=== PATIENT | female | born 1935 | race Caucasian/White ===

== ENCOUNTER 2017-04-04 12:03 | Inpatient (IN) | payer MEDICARE, OTHER ==
[2017-04-04] MEDS ORDERED: Sodium Chloride 0.9% 1000 ML 1,000 ML IV STA (12:36)
[2017-04-04] MEDS ORDERED: Zofran 4 MG/2 ML VIAL IV ONE (12:36)
[2017-04-04] MEDS ORDERED: Sodium Chloride 0.9% 1000 ML 1,000 ML ONE (12:40)
[2017-04-04] MEDS ORDERED: Zofran 4 MG/2 ML VIAL ONE (12:40)
--- NOTE | 2017-04-04 12:43 | ERPHSYRPT ---
- History of Present Illness Time Seen by Provider: 04/04/17 12:36 Historian: patient Exam Limitations: no limitations Patient Subjective Stated Complaint: c/o vomiting/diarrhea for three days. fever of 101.6 at home. recent bronchitis with frequent cough. Triage Nursing Assessment: to room per w/c. skin pale, w/d. no edema noted. abd soft, tender. hyperactive bowel sounds throughout. occasional dry cough. wears abd binder for hernia. Physician History: This is a 81-year-old white female with history of coronary artery disease myocardial infarction high blood pressure hypercholesterolemia and anemia. Patient arrives with complaint of vomiting 3 times a day for 4 days, she states she's been having multiple loose stools she states she's had a cough she's had a fever. Patient states she was seen by her family doctor March 30 in the next day she began to have the symptoms. She states that she has a ventral hernia which is a located where she had had a feeding tube in the past. Past medical history includes atherosclerotic coronary artery disease, myocardial infarction, high blood pressure, anemia, fatty liver, pancreatitis patient apparently had a feeding tube in the past. Past surgical history includes CABG, cardiac stents, vaginal hysterectomy, bilateral total knee arthroplasty, cholecystectomy, Social history patient denies tobacco or alcohol use Timing/Duration: day(s) (4 days) Activities at Onset: none Quality: other (mild tenderness in upper abdomen with coughing at site of hernia ) Abdominal Pain Onset Location: epigastric Pain Radiation: no radiation Severity of Pain-Max: moderate (moderate with coughing) Severity of Pain-Current: none Modifying Factors: Improves With: coughing, vomiting, other (diarrhea). Worsens With: antacids, breathing, defecating, eating, exercise, lying down, movement, palpation, rest, urinating, position, walking Associated Symptoms: diarrhea, fever/chills, nausea, vomiting, No back, No chest pain, No diaphoresis, No fatigue, No headache, No heartburn, No loss of appetite, No neck pain, No rash, No shortness of breath, No syncope Previous symptoms: recently seen (seen by Dr. Kapadia March 30) Allergies/Adverse Reactions: cefaclor Allergy (Verified 04/04/17 12:43) meperidine [From Demerol] Allergy (Verified 04/04/17 12:43) Penicillins Allergy (Verified 04/04/17 12:43) sulfamethoxazole [From Bactrim] Allergy (Verified 04/04/17 12:43) Tetracyclines Allergy (Verified 04/04/17 12:43) trimethoprim [From Bactrim] Allergy (Verified 04/04/17 12:43) Home Medications: Aspirin [[place] Aspirin] 81 mg PO DAILY 04/04/17 [History] Bimatoprost 0.01% [Lumigan 0.01% 2.5 ml] 2.5 ml OP HS 04/04/17 [History] Brinzolamide/Brimonidine Tart [Simbrinza 1%-0.2% Eye Drops] 8 ml OP BID [History] Ezetimibe 10 mg [Zetia 10 MG] 10 mg PO DAILY 04/04/17 [History] Isosorbide Mononitrate [Isosorbide Mononitrate ER] 30 mg PO BID 04/04/17 [ History] Metoprolol Tartrate 50 mg [Lopressor 50 MG] 50 mg PO DAILY 04/04/17 [ History] Nitroglycerin 0.4 mg Tablet [Nitrostat 0.4 MG Tablet] 0.4 mg SL UD [History] [place]-3/Dha/Epa/Fish Oil [Fish Oil 1,000 mg Softgel] 1,000 mg PO BID 04/04/17 [ History] Prasugrel HCL 10 MG [Effient 10 MG TABLET] 10 mg PO DAILY 04/04/17 [ History] Valsartan [Diovan] 160 mg PO BID 04/04/17 [History] Hx Tetanus, Diphtheria Vaccination/Date Given: No Hx Influenza Vaccination/Date Given: No Hx Pneumococcal Vaccination/Date Given: No - Review of Systems Constitutional: Fever, No Chills, No Fatigue, No Lethargy, No Malaise, No Night Sweats, No Weakness, No Weight Loss Eyes: No Symptoms Ears, Nose, & Throat: No Symptoms Respiratory: Cough, No Cyanosis, No Dyspnea, No Dyspnea on Exertion (HANEY), No Stridor, No Wheezing Cardiac: No Chest Pain, No Edema, No Palpitations, No Syncope, No Orthopnea, No PND Abdominal/Gastrointestinal: Abdominal Pain (mild pain at site of hernia epigastric region with coughing), Nausea, Vomiting, Diarrhea, No Constipation, No Hematemesis, No Hematochezia, No Melena, No Dysphagia, No Appetite Changes Genitourinary Symptoms: No Dysuria Musculoskeletal: No Back Pain, No Neck Pain Skin: No Rash Neurological: No Dizziness, No Focal Weakness, No Sensory Changes Psychological: No Symptoms Endocrine: No Symptoms All Other Systems: Reviewed and Negative - Past Medical History ENT History: Cataracts, Glaucoma Cardiac History: Coronary Artery Disease, High Cholesterol, Hypertension, Myocardial Infarction ([place]) Musculoskeletal History: Arthritis GI Medical History: GERD, Gallbladder Disease, Hernia, Pancreatitis - Past Surgical History Past Surgical History: Yes Cardiac: CABG, Cardiac Catheterization, Cardiac Stent Gastrointestinal: Cholecystectomy Musculoskeletal: Joint Replacement Female Surgical History: Hysterectomy Other Surgical History: bilat knees - Social History Smoking Status: Never smoker Exposure to second hand smoke: No Drug Use: none Patient Lives Alone: No - Nursing Vital Signs Nursing Vital Signs: Initial Vital Signs Temperature 99.7 F 04/04/17 12:13 Pulse Rate 75 04/04/17 12:13 Respiratory Rate 18 04/04/17 12:13 Blood Pressure 118/54 04/04/17 12:13 O2 Sat by Pulse Oximetry 94 L 04/04/17 12:13 Pain Scale Pain Intensity 4 - Physical Exam General Appearance: no apparent distress, alert Eye Exam: PERRL/EOMI, eyes nml inspection Ears, Nose, Throat Exam: normal ENT inspection, pharynx normal, moist mucous membranes Neck Exam: normal inspection, non-tender, supple, full range of motion Respiratory Exam: normal breath sounds, lungs clear, No respiratory distress Cardiovascular Exam: regular rate/rhythm, normal heart sounds Gastrointestinal/Abdomen Exam: soft, normal bowel sounds, hernia (patient with small hernia epigastric region no tenderness at this time no palpable bowel hernia admits fingertip), No tenderness Back Exam: normal inspection, normal range of motion, No CVA tenderness, No vertebral tenderness Extremity Exam: normal inspection, normal range of motion, pelvis stable Neurologic Exam: alert, oriented x 3, cooperative, normal mood/affect, nml cerebellar function, sensation nml, No motor deficits Skin Exam: normal color, warm, dry SpO2 Interpretation: normal (94%) SpO2: 94 Oxygen Delivery: Room Air - Course Nursing assessment & vital signs reviewed: Yes EKG Interpreted by Me: RATE (80 bpm), Sinus Rhythm, Left [address] Deviation, Right Bundle Branch Block, Other (EKG: Sinus rhythm, 80 bpm, left axis deviation, complete right bundle branch block, left anterior fascicular block, prolonged QRS interval, no acute ST or T wave changes noted, no old EKG for comparison) - Radiology Exams Abdomen X-ray Interpretation: Interpreted by me, Other (acute abdomen series : chest x- ray no acute disease process, abdomen non specific bowel pattern) Ordered Tests: Active Orders 24 hr Category Date Time Status EKG-ER Only STAT Care 04/04/17 13:39 Active IV Insertion STAT Care 04/04/17 12:36 Active cath [Cath for Specimen-Straight] STAT Care 04/04/17 12:50 Active OBSTR/ACUTE ABDOMEN SERIES Stat Exams 04/04/17 12:37 Taken AMYLASE Stat Lab 04/04/17 12:15 Completed BLOOD CULTURE Stat Lab 04/04/17 12:55 Received CBC W DIFF Stat Lab 04/04/17 12:15 Completed CMP Stat Lab 04/04/17 12:15 Completed CULTURE,SPUTUM Stat Lab 04/04/17 13:22 Uncollected CULTURE,URINE Stat Lab 04/04/17 12:15 Received LIPASE Stat Lab 04/04/17 12:15 Completed Manual Differential NC Stat Lab 04/04/17 12:15 Completed NT PRO BNP Stat Lab 04/04/17 12:15 Completed UA W/ MICROSCOPIC Stat Lab 04/04/17 12:15 Completed Transfer Order Routine Transfer 04/04/17 Ordered Medication Summary Generic Name Dose Route Start Last Admin Trade Name Freq PRN Reason Stop Dose Admin Levofloxacin/Dextrose 500 mg in 100 mls @ 100 mls/hr 04/04/17 13:23 04/04/17 13:31 Levofloxacin 500mg/100ml D5w IV 04/04/17 14:22 100 mls/hr STAT STA Administration Discontinued Medications Generic Name Dose Route Start Last Admin Trade Name Freq PRN Reason Stop Dose Admin Sodium Chloride 1,000 mls @ 999 mls/hr 04/04/17 12:36 04/04/17 12:44 Sodium Chloride 0.9% 1000 Ml IV 04/04/17 13:36 999 mls/hr .Q1H1M STA Administration Sodium Chloride Confirm 04/04/17 12:40 Sodium Chloride 0.9% 1000 Ml Administered 04/04/17 12:41 Dose 1,000 mls @ ud .ROUTE .STK-MED ONE Levofloxacin/Dextrose Confirm 04/04/17 13:30 Levofloxacin 500mg/100ml D5w Administered 04/04/17 13:31 Dose 500 mg in 100 mls @ ud IV .STK-MED ONE Ondansetron HCl 4 mg 04/04/17 12:36 04/04/17 12:44 Zofran 4 Mg/2 Ml Vial IV 04/04/17 12:37 4 mg STAT ONE Administration Ondansetron HCl Confirm 04/04/17 12:40 Zofran 4 Mg/2 Ml Vial Administered 04/04/17 12:41 Dose 4 mg .ROUTE .STK-MED ONE Potassium Bicarbonate 50 meq 04/04/17 13:22 04/04/17 13:31 K-Lyte 25 Meq PO 04/04/17 13:23 50 meq STAT ONE Administration Potassium Bicarbonate Confirm 04/04/17 13:30 K-Lyte 25 Meq Administered 04/04/17 13:31 Dose 50 meq .ROUTE .STK-MED ONE Lab/Rad Data: Laboratory Result Diagrams 04/04/17 12:15 04/04/17 12:15 Laboratory Results 04/04/17 04/04/17 04/04/17 Range/Units 12:15 12:15 12:15 WBC 6.1 (4.0-10.5) K/mm3 RBC 3.57 L (4.1-5.4) M/mm3 Hgb 8.2 L (12.0-16.0) gm/dl Hct 28.5 L (35-47) % MCV 79.8 (78-100) fl MCH 22.9 L (26-32) pg MCHC 28.8 L (32-36) g/dl RDW 18.2 H (11.5-14.0) % Plt Count 190 (150-450) K/mm3 MPV 11.3 H (6-9.5) fl Segmented Neutrophils 85 H (36.0-66.0) % Band Neutrophils 5 H (0.0-2.0) % Lymphocytes (Manual) 7 L (24-44) % Monocytes (Manual) 2 (0.0-12.0) % Basophils (Manual) 1 (0.0-1.0) % Differential Comment ABNORMAL Platelet Estimate NORMAL (NORMAL) Polychromasia 1+ Hypochromasia 2+ Poikilocytosis 1+ Anisocytosis 1+ Sodium 135 L (136-145) mEq/L Potassium 3.0 L* (3.5-5.1) mEq/L Chloride 98 (98-107) mEq/L Carbon Dioxide 23.5 (21-32) mEq/L Anion Gap 16.3 H (5-15) MEQ/L BUN 17 (9-20) mg/dL Creatinine 1.13 (0.55-1.30) mg/dl Estimated GFR 49 ML/MIN Glucose 120 H (70-110) MG/DL Calcium 8.2 L (8.5-10.1) mg/dL Total Bilirubin 0.60 (0.2-1.0) mg/dL AST 64 H (15-37) U/L ALT 30 (12-78) U/L Alkaline Phosphatase 108 (46-116) U/L NT-Pro-B Natriuret Pep 1145 H (0-450) pg/ml Serum Total Protein 7.1 (6.4-8.2) gm/dL Albumin 3.6 (3.4-5.0) g/dL Amylase 25 (25-115) U/L Lipase 121 (73-393) U/L Ur Collection Type Urine Color (YELLOW) Urine Appearance (CLEAR) Urine pH (5-6) Ur Specific [place] (1.005-1.025) Urine Protein (Negative) Urine Ketones (NEGATIVE) Urine Blood (0-5) [place]/ul Urine Nitrite (NEGATIVE) Urine Bilirubin (NEGATIVE) Urine Urobilinogen (0-1) mg/dL Ur Leukocyte Esterase (NEGATIVE) Urine Microscopic RBC (0-2) /HPF Urine Microscopic WBC (0-5) /HPF Ur Epithelial Cells (FEW) /HPF Amorphous Crystals (NEGATIVE) /HPF Urine Bacteria (NEGATIVE) /HPF Hyaline Casts (0-2) /LPF Urine Culture Reflexed (NO) Urine Glucose (NEGATIVE) mg/dL Specimen Received 04/04/17 Range/Units 12:15 WBC (4.0-10.5) K/mm3 RBC (4.1-5.4) M/mm3 Hgb (12.0-16.0) gm/dl Hct (35-47) % MCV (78-100) fl MCH (26-32) pg MCHC (32-36) g/dl RDW (11.5-14.0) % Plt Count (150-450) K/mm3 MPV (6-9.5) fl Segmented Neutrophils (36.0-66.0) % Band Neutrophils (0.0-2.0) % Lymphocytes (Manual) (24-44) % Monocytes (Manual) (0.0-12.0) % Basophils (Manual) (0.0-1.0) % Differential Comment Platelet Estimate (NORMAL) Polychromasia Hypochromasia Poikilocytosis Anisocytosis Sodium (136-145) mEq/L Potassium (3.5-5.1) mEq/L Chloride (98-107) mEq/L Carbon Dioxide (21-32) mEq/L Anion Gap (5-15) MEQ/L BUN (9-20) mg/dL Creatinine (0.55-1.30) mg/dl Estimated GFR ML/MIN Glucose (70-110) MG/DL Calcium (8.5-10.1) mg/dL Total Bilirubin (0.2-1.0) mg/dL AST (15-37) U/L ALT (12-78) U/L Alkaline Phosphatase (46-116) U/L NT-Pro-B Natriuret Pep (0-450) pg/ml Serum Total Protein (6.4-8.2) gm/dL Albumin (3.4-5.0) g/dL Amylase (25-115) U/L Lipase (73-393) U/L Ur Collection Type CATH Urine Color YELLOW (YELLOW) Urine Appearance HAZY (CLEAR) Urine pH 5.0 (5-6) Ur Specific [place] 1.015 (1.005-1.025) Urine Protein 30 (Negative) Urine Ketones TRACE (NEGATIVE) Urine Blood NEGATIVE (0-5) [place]/ul Urine Nitrite NEGATIVE (NEGATIVE) Urine Bilirubin NEGATIVE (NEGATIVE) Urine Urobilinogen 1 (0-1) mg/dL Ur Leukocyte Esterase TRACE (NEGATIVE) Urine Microscopic RBC 0-2 (0-2) /HPF Urine Microscopic WBC 2-5 (0-5) /HPF Ur Epithelial Cells MODERATE (FEW) /HPF Amorphous Crystals MODERATE (NEGATIVE) /HPF Urine Bacteria MODERATE (NEGATIVE) /HPF Hyaline Casts 10-25 (0-2) /LPF Urine Culture Reflexed YES (NO) Urine Glucose NEGATIVE (NEGATIVE) mg/dL Specimen Received 04/04/17 1230 - Progress Progress: improved Progress Note: 04/04/17 12:44 This is a 81-year-old white female with history of atherosclerotic coronary artery disease, high blood pressure, anemia, fatty liver, pancreatitis who has had a bypass and cardiac stents in the past Apparently patient has had a feeding tube in the past she arrives with complaint that she has been vomiting for approximately 4 days 3 times a day she states she's had the loose stools multiple over last 4 days she has not been on any antibiotic she states that she feels like she's had a fever at home. Patient does have a hernia at the site of a feeding tube in the epigastric region which she stated was distended when she saw Dr. Kapadia however she's been using a binder and she also you can palpate the hernia there is no palpable bowel that she is not tender with palpation in the area. Patient does state she's been coughing and this is been causing the pain in the area of the hernia she is wearing a binder which improves her her discomfort. Will go ahead and get CBC chest x-ray CMP amylase lipase acute abdominal series and bnp . Will give patient normal saline at this time and Zofran for her nausea acute abdominal series has been ordered, patient shows no sign of bowel entrapment, 04/04/17 13:25 Patient has a white count of 6.1 hemoglobin 8.2 which is up from 4 days ago hematocrit 28.5 urinalysis 2-5 white cells per high-power field patient's potassium is 3.0 and sodium 135 Patient's BNP is noted to be elevated at 1145 however she shows no failure on chest x-ray. I've discussed possible admission with the patient she states she wants to take care of her mother and does not want to be admitted. Patient did have a potassium of 30 Will give patient potassium 50 mEq orally will give patient Levaquin 500 mg IV blood cultures sputum cultures have been ordered urine will be cultured patient will be given normal saline 500 mg IV. 04/04/17 13:30 Nurse reports patient satting 89-90% on room air she is 98% on 2 L. Will discuss case with Dr. Mcrae for possible admission Patient with diagnosis of hypokalemia, anemia, bronchitis, persistent nausea and vomiting. Patient did receive Zofran Levaquin and IV normal saline Patient was noted to have BNP of 1145 therefore she was given normal saline 500 mL Patient now states she will stay decided to admit her Will place patient on observation I've discussed case with Dr. Mcrae she requested the patient be given lactated Ringer's 80 mL per hour Continue on Levaquin. Zofran. - Departure Time of Disposition: 14:06 Departure Disposition: Observation Clinical Impression: Bronchitis, Hypokalemia Vomiting Qualifiers: Vomiting type: unspecified Vomiting Intractability: unspecified Nausea presence : with nausea Qualified Code(s): R11.2 - Nausea with vomiting, unspecified Anemia Qualifiers: Anemia type: unspecified type Qualified Code(s): D64.9 - Anemia, unspecified Condition: Fair Critical Care Time: No Referrals: NIRALI KAPADIA [Primary Care Provider] -
[2017-04-04 12:52] LABS: Mean Cell Volume 79.8 fl (78-100); Mean Corpuscular Hemoglobin 22.9 pg (26-32); Mean Platelet Volume 11.3 fl (6-9.5); Platelet Count 190 K/mm3 (150-450); Red Blood Count 3.57 M/mm3 (4.1-5.4); Red Cell Distribution Width 18.2 % (11.5-14.0); White Blood Count 6.1 K/mm3 (4.0-10.5)
[2017-04-04 13:02] LABS: ALBUMIN 3.6 g/dL (3.4-5.0); ANION GAP 16.3 MEQ/L (5-15); BILIRUBIN,TOTAL 0.6 mg/dL (0.2-1.0); Carbon Dioxide 23.5 mEq/L (21-32); Total Protein 7.1 gm/dL (6.4-8.2)
[2017-04-04 13:06] LABS: Bacteria MODERATE /HPF (NEGATIVE); Bilirubin NEGATIVE (NEGATIVE); Blood NEGATIVE Ery/ul (0-5); COMPLETE URINE MICROSCOPIC? YES; Collection Type CATH; Epithelial Cells MODERATE /HPF (FEW); Glucose NEGATIVE (NEGATIVE); Leukocyte Esterase TRACE (NEGATIVE)
[2017-04-04 13:07] LABS: ADD URINE CULTURE? YES (NO)
[2017-04-04] MEDS ORDERED: K-LYTE 25 MEQ PO ONE (13:22)
[2017-04-04] MEDS ORDERED: Levofloxacin 500MG/100ML D5W 500 MG/100 ML BAG IV STA (13:23)
[2017-04-04 13:26] LABS: BAND 5 % (0.0-2.0); Basophil 1 % (0.0-1.0); Platelet Estimate NORMAL (NORMAL); Total Cells Counted 100
[2017-04-04 13:27] LABS: ANISOCYTOSIS 1+; Hypochromia 2+; Poikilocytosis 1+; Polychromasia 1+
[2017-04-04] MEDS ORDERED: K-LYTE 25 MEQ ONE (13:30)
[2017-04-04] MEDS ORDERED: Levofloxacin 500MG/100ML D5W 500 MG/100 ML BAG IV ONE (13:30)
[2017-04-04] MEDS ORDERED: Zofran 4 MG/2 ML VIAL IV PRN (14:50)
--- NOTE | 2017-04-04 15:17 | XRAY ---
Indication: Productive cough. Comparison: Chest exam March 12, 2017. 2 views of the abdomen nonacute and nonobstructed with cholecystectomy clips. 2.5 cm round calcification inferior to the right kidney. Remaining solid organs unremarkable. Moderate scattered vascular calcifications. Osseous structures intact with multilevel spinal degenerative changes. Single PA chest remains clear with chronic right hemidiaphragm elevation. Heart is not enlarged again demonstrating CABG surgery. Bony thorax intact with mild degenerative changes. Impression: 1. 2.5 cm round calcification inferior to the right kidney. CT may yield further information if clinically warranted. 2. Stable nonacute one view chest with chronic features.
[2017-04-04] MEDS: Lactated Ringers 1,000 ML IV SCH (15:26)
[2017-04-04] MEDS: Tussionex Pennkinetic Susp PO PRN (16:43)
[2017-04-04] MEDS: PROVENTIL 2.5 MG/3 ML NEB IH PRN ×2 (17:09→21:10)
[2017-04-04] MEDS: solu-MEDROL 40 MG IV SCH (17:30)
[2017-04-04] MEDS ORDERED: TYLENOL 325 MG PO PRN (21:42)
[2017-04-04] MEDS ORDERED: FISH OIL 1,000 MG CAPSULE PO SCH (22:00)
[2017-04-04] MEDS ORDERED: Zetia 10 MG PO SCH (22:00)
[2017-04-04] MEDS ORDERED: LUMIGAN 0.01% 2.5 ML OP SCH (22:00)
[2017-04-04] MEDS: DIOVAN 80 MG PO SCH (23:26)
[2017-04-04] MEDS: Imdur 30 MG PO SCH (23:27)
[2017-04-04] MEDS: ECOTRIN 81 MG PO SCH (23:27)
[2017-04-05] MEDS: Lactated Ringers 1,000 ML IV SCH ×2 (02:22→17:32)
[2017-04-05] MEDS: PROVENTIL 2.5 MG/3 ML NEB IH PRN (03:00)
[2017-04-05] MEDS: solu-MEDROL 40 MG IV SCH ×3 (03:06→17:32)
[2017-04-05] MEDS: Tussionex Pennkinetic Susp PO PRN ×2 (03:43→20:29)
[2017-04-05 05:54] LABS: Mean Cell Volume 79.9 fl (78-100); Mean Corpuscular Hemoglobin 22.6 pg (26-32); Platelet Count 141 K/mm3 (150-450); Red Blood Count 3.23 M/mm3 (4.1-5.4); Red Cell Distribution Width 18.5 % (11.5-14.0)
[2017-04-05 06:18] LABS: ALBUMIN 2.8 g/dL (3.4-5.0); ALKALINE PHOSPHATASE 89 U/L (46-116); ANION GAP 14.5 MEQ/L (5-15); BLOOD UREA NITROGEN 20 mg/dL (9-20); CHLORIDE 103 mEq/L (98-107); Carbon Dioxide 24.2 mEq/L (21-32); Glucose 174 MG/DL (70-110); Potassium 3.5 mEq/L (3.5-5.1); SGOT/AST 53 U/L (15-37); SGPT/ALT 26 U/L (12-78); SODIUM 138 mEq/L (136-145)
[2017-04-05] MEDS: DUONEB 0.5-3 MG/3 ml Neb IH SCH ×5 (06:20→22:38)
[2017-04-05 06:56] LABS: BAND 1 % (0.0-2.0); Platelet Estimate INCREASED (NORMAL); Total Cells Counted 100
[2017-04-05 06:57] LABS: ANISOCYTOSIS 1+; Hypochromia 2+; Poikilocytosis 1+
[2017-04-05] MEDS ORDERED: MEDICATION INTERVENTION MC SCH (09:00)
[2017-04-05] MEDS ORDERED: Nitrostat 0.4 MG Tablet SL PRN (09:00)
[2017-04-05] MEDS: DIOVAN 80 MG PO SCH ×2 (09:06→23:27)
[2017-04-05] MEDS: Imdur 30 MG PO SCH ×2 (09:07→23:28)
[2017-04-05] MEDS: Levofloxacin 500MG/100ML D5W 500 MG/100 ML BAG IV SCH (09:07)
[2017-04-05] MEDS ORDERED: BRINZOLAMIDE OP SCH (10:00)
[2017-04-05] MEDS ORDERED: Lopressor 50 MG PO SCH (10:00)
[2017-04-05] MEDS ORDERED: BRIMONIDINE TART OP SCH (10:00)
[2017-04-05] MEDS: Effient 10 MG TABLET PO SCH (12:17)
--- NOTE | 2017-04-05 12:18 | PCM.HP ---
History of Present Illness - Chief Complaint Chief Complaint: bronchitis. vomiting. anemia. History of Present Illness: is a 81 year old female admitted through ER with vomiting, diarrhea, and bronchitis. She was sick wiht cough in early march and treated, did improve. Then she saw Dr. Heck on 03/30 and started to get sick th en day with increased cough, vomiting, and diarrhea. Fever at home over 101. 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 She is feeling much better this morning, no more vomiting or diarrhea. Tolerating some liquids. She still has cough. Has ventral incisional hernia that is feeling better with abdominal binder. - Review of Systems Constitutional: Fever, Chills, Fatigue Respiratory: Cough, Short Of Breath Cardiac: Chest Pain (chronic; takes nitro) Abdominal/Gastrointestinal: Abdominal Pain (generalized with cough and diarrhea) , Nausea, Vomiting, Diarrhea Genitourinary Symptoms: Other (was having decreased urination until her visit) Neurological: Dizziness (improved after visit with Dr. Crockett) Psychological: Depression (intermittently regarding her mother), No Anxiety, No Suicidal Ideations All Other Systems: Reviewed and Negative Medications & Allergies Home Medications: Home Medication List Aspirin [[place] Aspirin] 81 mg PO HS 04/04/17 [History Confirmed 04/04/17] Bimatoprost 0.01% [Lumigan 0.01% 2.5 ml] 2.5 ml OP HS 04/04/17 [History Confirmed 04/04/17] Brinzolamide/Brimonidine Tart [Simbrinza 1%-0.2% Eye Drops] 8 ml OP BID [History Confirmed 04/04/17] Ezetimibe 10 mg [Zetia 10 MG] 10 mg PO HS 04/04/17 [History Confirmed ] Isosorbide Mononitrate [Isosorbide Mononitrate ER] 30 mg PO BID 04/04/17 [ History Confirmed 04/04/17] Metoprolol Tartrate 50 mg [Lopressor 50 MG] 50 mg PO DAILY 04/04/17 [ History Confirmed 04/04/17] Nitroglycerin 0.4 mg Tablet [Nitrostat 0.4 MG Tablet] 0.4 mg SL UD [History Confirmed 04/04/17] Aston-3/Dha/Epa/Fish Oil [Fish Oil 1,000 mg Softgel] 1,000 mg PO BID 04/04/17 [ History Confirmed 04/04/17] Prasugrel HCL 10 MG [Effient 10 MG TABLET] 10 mg PO DAILY 04/04/17 [ History Confirmed 04/04/17] Valsartan [Diovan] 160 mg PO BID 04/04/17 [History Confirmed 04/04/17] Allergies/Adverse Reactions: Allergies Allergy/AdvReac Type Severity Reaction Status Date / Time cefaclor Allergy Verified 04/04/17 12:43 meperidine [From Demerol] Allergy Verified 04/04/17 12:43 Penicillins Allergy Verified 04/04/17 12:43 sulfamethoxazole Allergy Verified 04/04/17 12:43 [From Bactrim] Tetracyclines Allergy Verified 04/04/17 12:43 trimethoprim [From Bactrim] Allergy Verified 04/04/17 12:43 Sulfa (Sulfonamide AdvReac Verified 04/04/17 15:08 Antibiotics) - Past Medical History Past Medical History: Yes Neurological History: No Pertinent History ENT History: Cataracts, Glaucoma, Macular Degeneration Cardiac History: Coronary Artery Disease, High Cholesterol, Hypertension, Myocardial Infarction (MD) Respiratory History: No Pertinent History Endocrine Medical History: No Pertinent History Musculoskelatal History: Arthritis GI Medical History: GERD, Gallbladder Disease, Hernia, Pancreatitis, Other History: Other Reproductive Disorders: Menstrual Problems, Other Comment: UTI's. basil cell. anemia. reflux. - Female History Are you now?: No - Past Surgical History Past Surgical History: Yes Neuro Surgical History: No Pertinent History Cardiac History: CABG, Cardiac Catheterization, Cardiac Stent Respiratory Surgery: Chest Surgery GI Surgical History: Cholecystectomy Genitourinary Surgical Hx: No Pertinent History Musculskeletal Surgical Hx: Joint Replacement Female Surgical History: Hysterectomy Other Surgical History: bilat knees - Social History Smoking Status: Never smoker Exposure to second hand smoke: No Alcohol: None Drug Use: none - Physical Exam Vital Signs: Vital Signs - 24 hr Temp Pulse Resp BP Pulse Ox 04/05/17 11:00 104 H 18 94 L 04/05/17 07:00 98.2 F 127 H 18 115/59 99 04/05/17 06:53 117 H 24 97 04/05/17 05:00 20 04/05/17 03:00 97.6 F 129 H 20 116/54 96 04/05/17 01:40 EDT 20 04/05/17 01:00 EDT 20 04/04/17 23:57 99.3 F 83 20 104/51 95 04/04/17 21:10 99 H 22 94 L 04/04/17 21:00 22 04/04/17 20:00 98.0 F 101 H 18 124/59 92 L 04/04/17 19:47 98 H 21 90 L 04/04/17 17:12 90 22 94 L 04/04/17 15:25 102.2 F 90 123/66 94 L 04/04/17 14:06 94 L 04/04/17 13:50 102.2 F 90 22 123/66 90 L 04/04/17 13:27 84 20 106/48 90 L Oxygen-Last 24 hours O2 Percentage 3 Liters = 32% O2 Percentage 2 Liters = 28% O2 Percentage 2 Liters = 28% O2 Percentage 2 Liters = 28% O2 Percentage 2 Liters = 28% O2 Percentage 2 Liters = 28% General Appearance: no apparent distress Neurologic Exam: alert, oriented x 3, cooperative Eye Exam: eyes nml inspection Respiratory Exam: diminished breath sounds, rhonchi (RLL), No crackles/rales, No wheezing Cardiovascular Exam: regular rate/rhythm, normal heart sounds, No murmur Gastrointestinal/Abdomen Exam: soft, tenderness (diffuse mild), other (well healed wound mid abd - mildly ttp, small hernia palpable, reducible) Results - Labs Lab/Micro Results: Lab Results-Last 24 Hours 04/05/17 04/05/17 Range/Units 05:35 05:35 WBC 4.0 (4.0-10.5) K/mm3 RBC 3.23 L (4.1-5.4) M/mm3 Hgb 7.3 L (12.0-16.0) gm/dl Hct 25.8 L (35-47) % MCV 79.9 (78-100) fl MCH 22.6 L (26-32) pg MCHC 28.3 L (32-36) g/dl RDW 18.5 H (11.5-14.0) % Plt Count 141 L (150-450) K/mm3 MPV 11.0 H (6-9.5) fl Segmented Neutrophils 96 H (36.0-66.0) % Band Neutrophils 1 (0.0-2.0) % Lymphocytes (Manual) 3 L (24-44) % Differential Comment ABNORMAL Platelet Estimate INCREASED (NORMAL) Hypochromasia 2+ Poikilocytosis 1+ Anisocytosis 1+ Sodium 138 (136-145) mEq/L Potassium 3.5 (3.5-5.1) mEq/L Chloride 103 (98-107) mEq/L Carbon Dioxide 24.2 (21-32) mEq/L Anion Gap 14.5 (5-15) MEQ/L BUN 20 (9-20) mg/dL Creatinine 0.82 (0.55-1.30) mg/dl Estimated GFR > 60 ML/MIN Glucose 174 H (70-110) MG/DL Calcium 8.2 L (8.5-10.1) mg/dL Total Bilirubin 0.60 (0.2-1.0) mg/dL AST 53 H (15-37) U/L ALT 26 (12-78) U/L Alkaline Phosphatase 89 (46-116) U/L Serum Total Protein 6.0 L (6.4-8.2) gm/dL Albumin 2.8 L (3.4-5.0) g/dL - Other Procedures and Tests Respiratory Therapy 04/04/17 17:04 Respiratory Nebulizer UD 04/05/17 07:00 Respiratory Nebulizer Q4H Assessment/Plan (1) Pneumonia Current Visit: Yes Status: Acute Qualifiers: Pneumonia type: due to unspecified organism Laterality: right Lung location: lower lobe of lung Qualified Code(s): J18.1 - Lobar pneumonia, unspecified organism Assessment & Plan: Clinically, on exam, suspicious for pneumonia. She did not have an elevated WBC count, but she is 81 years old. She did have fever at home and Tmax here to 102 (although this was temporal). Stay on levaquin. She says her sister can stay with her mom 1 more night so she agrees to stay here until tomorrow. on Levaquin IV. Some O2 sat decrease with lying down for exam; O2 as needed. Code(s): J18.9 - PNEUMONIA, UNSPECIFIED ORGANISM (2) Diarrhea Current Visit: Yes Status: Resolved Qualifiers: Diarrhea type: unspecified type Qualified Code(s): R19.7 - Diarrhea, unspecified Code(s): R19.7 - DIARRHEA, UNSPECIFIED (3) Anemia Current Visit: Yes Status: Chronic Qualifiers: Anemia type: unspecified type Qualified Code(s): D64.9 - Anemia, unspecified Assessment & Plan: Hgb to 7.3 - Will go ahead and transfuse 1 unit in this asymptomatic patient with coronary artery disease. Code(s): D64.9 - ANEMIA, UNSPECIFIED (4) Hypokalemia Current Visit: Yes Status: Resolved Code(s): E87.6 - HYPOKALEMIA (5) Vomiting Current Visit: Yes Status: Resolved Qualifiers: Vomiting type: unspecified Vomiting Intractability: unspecified Nausea presence: with nausea Qualified Code(s): R11.2 - Nausea with vomiting, unspecified Code(s): R11.10 - VOMITING, UNSPECIFIED (6) Coronary artery disease Current Visit: Yes Status: Acute Qualifiers: Coronary Disease-Associated Artery/Lesion type: bypass graft [place] vs. transplanted heart: [place] heart Associated angina: with stable angina Qualified Code(s): I25.708 - Atherosclerosis of coronary artery bypass graft(s) , unspecified, with other forms of angina pectoris Code(s): I25.10 - ATHSCL HEART DISEASE OF [place] CORONARY ARTERY W/O ANG PCTRS (7) Hypertension Current Visit: Yes Status: Chronic Qualifiers: Hypertension type: essential hypertension Qualified Code(s): I10 - Essential (primary) hypertension Code(s): I10 - ESSENTIAL (PRIMARY) HYPERTENSION (8) Fatty liver Current Visit: Yes Status: Chronic Code(s): K76.0 - FATTY (CHANGE OF) LIVER , NOT ELSEWHERE CLASSIFIED (9) Ventral hernia Current Visit: Yes Status: Chronic Qualifiers: Obstruction and gangrene presence: without obstruction or gangrene Qualified Code(s): K43.9 - Ventral hernia without obstruction or gangrene Code(s): K43.9 - VENTRAL HERNIA WITHOUT OBSTRUCTION OR GANGRENE
[2017-04-05] MEDS ORDERED: Sodium Chloride 0.9% 500 ML 500 ML IV ONE (14:35)
[2017-04-05] MEDS: OSELTAMIVIR PHOSPHATE 30 MG CAP PO SCH ×2 (14:48→23:37)
[2017-04-05] MEDS ORDERED: Tamiflu 75MG Capsule PO SCH (22:00)
[2017-04-05] MEDS: ECOTRIN 81 MG PO SCH (23:27)
[2017-04-05] MEDS: LUMIGAN 0.01% 2.5 ML OP SCH (23:34)
[2017-04-05] MEDS: PATIENT OWN MEDICATION OP SCH (23:36)
[2017-04-06] MEDS: solu-MEDROL 40 MG IV SCH (01:27)
[2017-04-06] MEDS: DUONEB 0.5-3 MG/3 ml Neb IH SCH ×2 (03:21→07:03)
[2017-04-06 06:12] LABS: ANION GAP 15.9 MEQ/L (5-15); BLOOD UREA NITROGEN 16 mg/dL (9-20); CHLORIDE 103 mEq/L (98-107); Carbon Dioxide 24.1 mEq/L (21-32); Glucose 173 MG/DL (70-110); Potassium 3.8 mEq/L (3.5-5.1); SODIUM 139 mEq/L (136-145)
[2017-04-06] MEDS: Lactated Ringers 1,000 ML IV SCH (06:28)
[2017-04-06 07:15] LABS: Mean Cell Volume 80.5 fl (78-100); Mean Corpuscular Hemoglobin 23.5 pg (26-32); Mean Platelet Volume 11.5 fl (6-9.5); Platelet Count 134 K/mm3 (150-450); Red Blood Count 3.53 M/mm3 (4.1-5.4); Red Cell Distribution Width 18.3 % (11.5-14.0); White Blood Count 7.4 K/mm3 (4.0-10.5)
[2017-04-06 07:50] LABS: BAND 3 % (0.0-2.0); Platelet Estimate NORMAL (NORMAL); Total Cells Counted 100
[2017-04-06 07:51] LABS: Hypochromia 1+
--- NOTE | 2017-04-06 09:01 | PCM.NOTE ---
Date and Time: 04/06/17854 Subjective Assessment: She reports that her nausea is gone. She reports the diarrhea has stopped and she has not had a stool since then. Her nurses and RT note that her heart rate goes up when she ambulates or talks on the phone. She reports she can feel her heart beating fast. She reports chest pain on and off which is her baseline. Dr. Crockett is her learning and development administrator. Her nurse also reported a coughing fit this AM with heart rate up to 160's. - Review of Systems Constitutional: No Symptoms Eyes: No Symptoms Ears, Nose, & Throat: No Symptoms Respiratory: Cough, Short Of Breath Cardiac: Chest Pain, Palpitations, No Edema, No Orthopnea Abdominal/Gastrointestinal: No Symptoms Genitourinary Symptoms: No Symptoms Musculoskeletal: No Symptoms Skin: No Symptoms Objective Exam General Appearance: no apparent distress, alert, other (talkative, mild shortness of breath with lying down and sitting back up.) Neurologic Exam: alert, cooperative, normal mood/affect Skin Exam: normal color, warm, dry, No rash Respiratory Exam: normal breath sounds, lungs clear, No respiratory distress, No crackles/rales, No rhonchi, No wheezing Cardiovascular Exam: tachycardia, other (+2 right radial pulse, unable to palpate dorsalis pedis or posterior tibial pulse.), No murmur, No friction rub, No gallop Gastrointestinal/Abdomen Exam: soft, other (abdominal binder in place), No tenderness, No distention, No mass Extremity Exam: normal inspection, other (no c/c/e) OBJECTIVE DATA Vital Signs: Vital Signs - 24 hr Temp Pulse Resp BP Pulse Ox 04/06/17 07:15 105 H 20 97 04/06/17 07:00 98.0 F 78 18 127/54 04/06/17 05:00 20 04/06/17 03:20 76 20 98 04/06/17 03:00 98.6 F 78 20 136/66 96 04/06/17 00:42 20 04/05/17 23:00 98.5 F 127 H 22 133/61 96 04/05/17 22:38 80 20 96 04/05/17 21:00 20 04/05/17 19:56 97.8 F 78 20 164/67 96 04/05/17 19:00 97.8 F 78 20 164/67 96 04/05/17 18:53 78 20 96 04/05/17 17:00 20 04/05/17 15:00 98.0 F 98 H 20 125/58 92 L 04/05/17 13:00 18 04/05/17 11:00 98.1 F 130 H 18 135/58 94 L Oxygen-Last 24 hours O2 Percentage 2 Liters = 28% O2 Percentage 2 Liters = 28% O2 Percentage 2 Liters = 28% O2 Percentage 2 Liters = 28% Oxygen Flowrate (L/min)-RT 100 Oxygen Flowrate (L/min)-RT 2 Oxygen Flowrate (L/min)-RT 2 Pain Assessment - Last Documented Pain Intensity 0 Pain Scale Used FLACC Intake and Output: Intake & Output 04/04/17 04/05/17 04/06/17 04/07/17 07:59 06:59 06:59 06:59 Intake Total 3653 Output Total 1900 Balance 1753 Weight 76.487 kg Lab Results: Lab Results-Last 24 Hours 04/05/17 04/05/17 04/05/17 Range/Units 12:26 12:40 19:30 WBC (4.0-10.5) K/mm3 RBC (4.1-5.4) M/mm3 Hgb 8.4 L (12.0-16.0) gm/dl Hct 28.6 L (35-47) % MCV (78-100) fl MCH (26-32) pg MCHC (32-36) g/dl RDW (11.5-14.0) % Plt Count (150-450) K/mm3 MPV (6-9.5) fl Segmented Neutrophils (36.0-66.0) % Band Neutrophils (0.0-2.0) % Lymphocytes (Manual) (24-44) % Monocytes (Manual) (0.0-12.0) % Platelet Estimate (NORMAL) Hypochromasia Sodium (136-145) mEq/L Potassium (3.5-5.1) mEq/L Chloride (98-107) mEq/L Carbon Dioxide (21-32) mEq/L Anion Gap (5-15) MEQ/L BUN (9-20) mg/dL Creatinine (0.55-1.30) mg/dl Estimated GFR ML/MIN Glucose (70-110) MG/DL Calcium (8.5-10.1) mg/dL Influenza Type A Ag POSITIVE (NEGATIVE) Influenza Type B Ag NEGATIVE (NEGATIVE) RSV (PCR) NEGATIVE (Negative) ABO Group AB Rh Factor POSITIVE Antibody Screen NEGATIVE (NEGATIVE) Crossmatch COMPATIBLE (COMPATIBLE) 04/06/17 04/06/17 Range/Units 05:00 05:00 WBC 7.4 (4.0-10.5) K/mm3 RBC 3.53 L (4.1-5.4) M/mm3 Hgb 8.3 L (12.0-16.0) gm/dl Hct 28.4 L (35-47) % MCV 80.5 (78-100) fl MCH 23.5 L (26-32) pg MCHC 29.2 L (32-36) g/dl RDW 18.3 H (11.5-14.0) % Plt Count 134 L (150-450) K/mm3 MPV 11.5 H (6-9.5) fl Segmented Neutrophils 89 H (36.0-66.0) % Band Neutrophils 3 H (0.0-2.0) % Lymphocytes (Manual) 5 L (24-44) % Monocytes (Manual) 3 (0.0-12.0) % Platelet Estimate NORMAL (NORMAL) Hypochromasia 1+ Sodium 139 (136-145) mEq/L Potassium 3.8 (3.5-5.1) mEq/L Chloride 103 (98-107) mEq/L Carbon Dioxide 24.1 (21-32) mEq/L Anion Gap 15.9 H (5-15) MEQ/L BUN 16 (9-20) mg/dL Creatinine 0.59 (0.55-1.30) mg/dl Estimated GFR > 60 ML/MIN Glucose 173 H (70-110) MG/DL Calcium 8.5 (8.5-10.1) mg/dL Influenza Type A Ag (NEGATIVE) Influenza Type B Ag (NEGATIVE) RSV (PCR) (Negative) ABO Group Rh Factor Antibody Screen (NEGATIVE) Crossmatch (COMPATIBLE) Assessment/Plan (1) Tachycardia with heart rate 141-160 beats per minute Current Visit: Yes Status: Acute Assessment & Plan: Her heart rate is fluctuating from 110's to 150's depending on her activity. I am decreasing her dose of valsarta and stopping metoprolol and adding cardizem to try to control heart rate. Will consult her learning and development administrator, Dr. Crockett via tele medicine. Continue prasurgel. She denies any history of atrial fibrillation. EKG looks like supraventricular tachycardia with HR 155 on EKG. Code(s): R00.0 - TACHYCARDIA, UNSPECIFIED (2) Influenza A Current Visit: Yes Status: Acute Assessment & Plan: Continue tamiflu and supportive treatment. I have stopped her IV steroids and started prednisone 20 mg daily. Code(s): J10.1 - FLU DUE TO OTH IDENT INFLUENZA VIRUS W OTH RESP MANIFEST (3) Coronary artery disease Current Visit: Yes Status: Acute Qualifiers: Coronary Disease-Associated Artery/Lesion type: bypass graft [place] vs. transplanted heart: [place] heart Associated angina: with stable angina Qualified Code(s): I25.708 - Atherosclerosis of coronary artery bypass graft(s) , unspecified, with other forms of angina pectoris Assessment & Plan: Stable at this time. Again, her learning and development administrator is being consulted. Code(s): I25.10 - ATHSCL HEART DISEASE OF [place] CORONARY ARTERY W/O ANG PCTRS (4) Hypertension Current Visit: Yes Status: Chronic Qualifiers: Hypertension type: essential hypertension Qualified Code(s): I10 - Essential (primary) hypertension Assessment & Plan: Currently well controlled. Code(s): I10 - ESSENTIAL (PRIMARY) HYPERTENSION (5) Anemia Current Visit: Yes Status: Chronic Qualifiers: Anemia type: iron deficiency Iron deficiency anemia type: chronic blood loss Qualified Code(s): D50.0 - Iron deficiency anemia secondary to blood loss (chronic) Assessment & Plan: Hgb stable and patient received 1 unit of packed red blood cells over the weekend. As an outpatient she had one of three stools positive for blood by hemoccult. She has been referred to a general surgeon for colonoscopy. Code(s): D64.9 - ANEMIA, UNSPECIFIED (6) Pneumonia Current Visit: Yes Status: Acute Qualifiers: Pneumonia type: due to unspecified organism Laterality: right Lung location: lower lobe of lung Qualified Code(s): J18.1 - Lobar pneumonia, unspecified organism Assessment & Plan: Sputum culture with gram positive organism. Continue levofloxacin. Code(s): J18.9 - PNEUMONIA, UNSPECIFIED ORGANISM
[2017-04-06] MEDS: Imdur 30 MG PO SCH ×2 (09:13→21:43)
[2017-04-06] MEDS: Levofloxacin 500MG/100ML D5W 500 MG/100 ML BAG IV SCH (09:13)
[2017-04-06] MEDS: Cardizem 30 MG PO SCH ×4 (09:13→21:42)
[2017-04-06] MEDS: DELTASONE 20 MG PO SCH (09:13)
[2017-04-06] MEDS: OSELTAMIVIR PHOSPHATE 30 MG CAP PO SCH ×2 (09:14→21:44)
[2017-04-06] MEDS: Effient 10 MG TABLET PO SCH (09:14)
[2017-04-06] MEDS: PATIENT OWN MEDICATION OP SCH ×2 (09:14→21:44)
[2017-04-06] MEDS: Tussionex Pennkinetic Susp PO PRN ×2 (09:21→21:41)
[2017-04-06] MEDS ORDERED: DIOVAN 80 MG PO SCH (10:00)
[2017-04-06] MEDS: Sodium Chloride 3 ML UD NEBULES IH SCH ×4 (11:03→23:19)
[2017-04-06] MEDS: Xopenex 1.25 MG/0.5 ML UD NEBULE IH SCH ×4 (11:03→23:19)
[2017-04-06] MEDS: Vibramycin 100 MG PO SCH (18:05)
[2017-04-06] MEDS: LUMIGAN 0.01% 2.5 ML OP SCH (21:43)
[2017-04-06] MEDS: ECOTRIN 81 MG PO SCH (21:43)
[2017-04-07] MEDS: Xopenex 1.25 MG/0.5 ML UD NEBULE IH SCH ×6 (03:10→22:56)
[2017-04-07] MEDS: Sodium Chloride 3 ML UD NEBULES IH SCH ×6 (03:10→22:56)
[2017-04-07] MEDS: Sodium Chloride 0.9% 10 ML FLUSH Syringe IV SCH ×3 (06:45→23:24)
[2017-04-07] MEDS: Vibramycin 100 MG PO SCH ×2 (07:51→17:06)
--- NOTE | 2017-04-07 08:24 | PCM.NOTE ---
Date and Time: 04/07/17818 Subjective Assessment: She reports that her breathing is better. She is still sore in her lower abdomen from coughing. She is on 3 L of oxygen now and does not wear oxygen at home. 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 She has been eating well. We are awaiting her cardiology consult. She has not had any more episodes of tachycradia since starting the cardizem and she states she has been able to get up out of bed without problems. - Review of Systems Constitutional: No Symptoms Eyes: No Symptoms Ears, Nose, & Throat: No Symptoms Respiratory: Cough, Short Of Breath, No Wheezing Cardiac: No Symptoms Abdominal/Gastrointestinal: No Symptoms Genitourinary Symptoms: No Symptoms Musculoskeletal: No Symptoms Objective Exam General Appearance: no apparent distress Neurologic Exam: alert, cooperative, normal mood/affect Skin Exam: normal color, warm, dry Respiratory Exam: normal breath sounds, other (+ cough), No crackles/rales, No rhonchi, No wheezing Cardiovascular Exam: regular rate/rhythm, normal heart sounds, No murmur, No friction rub, No gallop Gastrointestinal/Abdomen Exam: soft, normal bowel sounds, other (mild tenderness in very low abdomen; abdominal binder in place), No distention, No mass, No guarding Extremity Exam: other (no c/c/e) OBJECTIVE DATA Vital Signs: Vital Signs - 24 hr Temp Pulse Resp BP Pulse Ox 04/07/17 08:00 98.4 F 69 18 92/54 94 L 04/07/17 07:00 78 18 97 04/07/17 04:40 97.9 F 75 26 H 125/57 94 L 04/07/17 03:10 78 26 H 94 L 04/06/17 23:19 63 24 96 04/06/17 23:00 97.7 F 63 24 99/49 96 04/06/17 19:23 78 25 H 95 04/06/17 19:00 98.0 F 78 25 H 124/57 95 04/06/17 17:00 18 04/06/17 15:00 98.0 F 79 18 106/51 93 L 04/06/17 14:58 86 18 96 04/06/17 13:00 18 04/06/17 11:18 89 18 97 04/06/17 11:03 97 04/06/17 11:00 98.9 F 92 H 18 117/55 97 04/06/17 09:00 18 Oxygen-Last 24 hours O2 Percentage 3 Liters = 32% O2 Percentage 3 Liters = 32% O2 Percentage 3 Liters = 32% O2 Percentage 3 Liters = 32% O2 Percentage 2 Liters = 28% O2 Percentage 4 Liters = 36% Pain Assessment - Last Documented Pain Scale Used FLACC Intake and Output: Intake & Output 04/05/17 04/06/17 04/07/17 04/08/17 06:59 06:59 06:59 06:59 Intake Total 859 Output Total 1300 Balance -441 Assessment/Plan (1) Tachycardia with heart rate 141-160 beats per minute Current Visit: Yes Status: Resolved Assessment & Plan: Controlled with oral cardizem. Will change to long acting today. Code(s): R00.0 - TACHYCARDIA, UNSPECIFIED (2) Influenza A Current Visit: Yes Status: Acute Assessment & Plan: Continue tamiflu. Currently in contact isolation. Continue with supportive treatment. Code(s): J10.1 - FLU DUE TO OTH IDENT INFLUENZA VIRUS W OTH RESP MANIFEST (3) Coronary artery disease Current Visit: Yes Status: Acute Qualifiers: Coronary Disease-Associated Artery/Lesion type: bypass graft [place] vs. transplanted heart: [place] heart Associated angina: with stable angina Qualified Code(s): I25.708 - Atherosclerosis of coronary artery bypass graft(s) , unspecified, with other forms of angina pectoris Assessment & Plan: Continue aspirin and effient. Boat Deckhand consulted. Code(s): I25.10 - ATHSCL HEART DISEASE OF [place] CORONARY ARTERY W/O ANG PCTRS (4) Hypertension Current Visit: Yes Status: Chronic Qualifiers: Hypertension type: essential hypertension Qualified Code(s): I10 - Essential (primary) hypertension Assessment & Plan: Currently well controlled. Metoprolol and arb were stopped to start diltiazem to control her heart rate. Code(s): I10 - ESSENTIAL (PRIMARY) HYPERTENSION (5) Anemia Current Visit: Yes Status: Chronic Qualifiers: Anemia type: iron deficiency Iron deficiency anemia type: chronic blood loss Qualified Code(s): D50.0 - Iron deficiency anemia secondary to blood loss (chronic) Code(s): D64.9 - ANEMIA, UNSPECIFIED (6) Pneumonia Current Visit: Yes Status: Acute Qualifiers: Pneumonia type: due to unspecified organism Laterality: right Lung location: lower lobe of lung Qualified Code(s): J18.1 - Lobar pneumonia, unspecified organism Assessment & Plan: Sputum culture grew staph aureus susceptible to tetracyclines so I started her on doxycyline yesterday. She told the nurses her allergy to the antibiotics that she is allergic to is itching. Code(s): J18.9 - PNEUMONIA, UNSPECIFIED ORGANISM
[2017-04-07] MEDS: Imdur 30 MG PO SCH ×2 (10:42→23:20)
[2017-04-07] MEDS: Effient 10 MG TABLET PO SCH (10:42)
[2017-04-07] MEDS: Cardizem CD 180 MG PO SCH (10:42)
[2017-04-07] MEDS: DELTASONE 20 MG PO SCH (10:42)
[2017-04-07] MEDS: OSELTAMIVIR PHOSPHATE 30 MG CAP PO SCH ×2 (10:42→23:22)
[2017-04-07] MEDS: PATIENT OWN MEDICATION OP SCH ×2 (10:43→23:23)
[2017-04-07] MEDS: Tussionex Pennkinetic Susp PO PRN ×2 (10:51→23:27)
[2017-04-07] MEDS: ECOTRIN 81 MG PO SCH (23:20)
[2017-04-07] MEDS: LUMIGAN 0.01% 2.5 ML OP SCH (23:21)
[2017-04-08] MEDS: Xopenex 1.25 MG/0.5 ML UD NEBULE IH SCH ×6 (02:55→23:14)
[2017-04-08] MEDS: Sodium Chloride 3 ML UD NEBULES IH SCH ×6 (02:55→23:14)
[2017-04-08] MEDS: Sodium Chloride 0.9% 10 ML FLUSH Syringe IV SCH ×3 (06:35→22:49)
[2017-04-08] MEDS: Vibramycin 100 MG PO SCH ×2 (08:06→17:02)
--- NOTE | 2017-04-08 09:03 | PCM.NOTE ---
Date and Time: 04/08/17 0859 Subjective Assessment: She states she continues to feel better each day but still has some abdominal soreness when she coughs. She does not want to go home with oxygen. She saw Dr. Crockett yesterday and he stopped her effient. She doesn't have much of an appetite but she has been eating. She feels like she will be able to care for herself when she goes home. - Review of Systems Constitutional: No Symptoms Eyes: No Symptoms Ears, Nose, & Throat: No Symptoms Respiratory: Cough, Short Of Breath Cardiac: No Symptoms Abdominal/Gastrointestinal: Other (muscle soresness in lower abdomen when she coughs, no bulges) Genitourinary Symptoms: No Symptoms Objective Exam General Appearance: no apparent distress, alert Neurologic Exam: alert, cooperative, normal mood/affect Skin Exam: normal color, warm, dry Respiratory Exam: normal breath sounds, lungs clear, No crackles/rales, No rhonchi, No wheezing Cardiovascular Exam: regular rate/rhythm, No murmur, No friction rub, No gallop Gastrointestinal/Abdomen Exam: soft, normal bowel sounds, other, No tenderness, No distention Extremity Exam: normal inspection, other (no c/c/e) OBJECTIVE DATA Vital Signs: Vital Signs - 24 hr Temp Pulse Resp BP Pulse Ox 04/08/17 07:55 98.4 F 77 18 84/45 96 04/08/17 07:11 74 18 92 L 04/08/17 04:00 97.9 F 72 18 144/60 93 L 04/08/17 02:55 72 18 93 L 04/07/17 23:38 98 F 74 19 134/63 97 04/07/17 22:56 94 H 19 97 04/07/17 20:00 98.6 F 88 18 151/71 95 04/07/17 18:38 78 18 94 L 04/07/17 17:00 18 04/07/17 16:00 98.4 F 80 18 151/61 93 L 04/07/17 13:00 22 04/07/17 10:53 100 H 22 94 L 04/07/17 10:52 98.4 F 69 18 125/59 94 L 04/07/17 09:00 18 Oxygen-Last 24 hours O2 Percentage 4 Liters = 36% O2 Percentage 3 Liters = 32% O2 Percentage 3 Liters = 32% O2 Percentage 3 Liters = 32% Oxygen Flowrate (L/min)-RT 100 Pain Assessment - Last Documented Pain Scale Used FLACC Intake and Output: Intake & Output 04/06/17 04/07/17 04/08/17 04/09/17 06:59 06:59 06:59 06:59 Intake Total 859 600 Output Total 1300 600 Balance -441 0 Weight 73.227 kg 73.539 kg Multi-Disciplinary Progress Notes: Multi-Disciplinary Progress Notes 04/08/17 08:43 Respiratory Note by Federica,Elvin ATTEMPTED TO QUALIFY PT FOR HM O2. REMOVED PT FROM O2 FOR APPROX 5 MINUTES AND WHEN I RETURNED PT SATS WERE 91-92% ON RA AT REST. I NOTICED THAT WHEN PT WLD COUGH, SATS WLD DROP TO 90%. I WEANED PT DOWN FROM 3LPM TO 2LPM AND SATS WERE 92%. WILL CONTINUE TO WEAN PT DOWN AND PER DR. KAPADIA RE-EVALUATE WHERE SHE IS TOMORROW AND SEE IF SHE WILL NEED TO GO HM ON O2 OR IF SHE WILL BE FINE W/O IT. Initialized on 04/08/17 08:43 - END OF NOTE Assessment/Plan (1) Influenza A Current Visit: Yes Status: Acute Assessment & Plan: Continue tamiflu and symptomatic treatment. She is slowly improving. Will try to wean her off oxygen today. Continue cough medication as needed. Code(s): J10.1 - FLU DUE TO OTH IDENT INFLUENZA VIRUS W OTH RESP MANIFEST (2) Coronary artery disease Current Visit: Yes Status: Acute Qualifiers: Coronary Disease-Associated Artery/Lesion type: bypass graft [place] vs. transplanted heart: [place] heart Associated angina: with stable angina Qualified Code(s): I25.708 - Atherosclerosis of coronary artery bypass graft(s) , unspecified, with other forms of angina pectoris Assessment & Plan: Continue medication per wholesale representative who saw her yesterday. Code(s): I25.10 - ATHSCL HEART DISEASE OF [place] CORONARY ARTERY W/O ANG PCTRS (3) Hypertension Current Visit: Yes Status: Chronic Qualifiers: Hypertension type: essential hypertension Qualified Code(s): I10 - Essential (primary) hypertension Assessment & Plan: Currently well controlled on diltiazem. She denies dizziness or lightheadedness. Code(s): I10 - ESSENTIAL (PRIMARY) HYPERTENSION (4) Anemia Current Visit: Yes Status: Chronic Qualifiers: Anemia type: iron deficiency Iron deficiency anemia type: chronic blood loss Qualified Code(s): D50.0 - Iron deficiency anemia secondary to blood loss (chronic) Assessment & Plan: Will recheck cbc in AM tomorrow. Code(s): D64.9 - ANEMIA, UNSPECIFIED (5) Pneumonia Current Visit: Yes Status: Acute Qualifiers: Pneumonia type: due to unspecified organism Laterality: right Lung location: lower lobe of lung Qualified Code(s): J18.1 - Lobar pneumonia, unspecified organism Assessment & Plan: Continue doxycycline. Code(s): J18.9 - PNEUMONIA, UNSPECIFIED ORGANISM
[2017-04-08] MEDS: OSELTAMIVIR PHOSPHATE 30 MG CAP PO SCH ×2 (09:46→22:42)
[2017-04-08] MEDS: DELTASONE 20 MG PO SCH (09:46)
[2017-04-08] MEDS: Imdur 30 MG PO SCH ×2 (09:46→22:42)
[2017-04-08] MEDS: PATIENT OWN MEDICATION OP SCH ×2 (10:53→22:48)
[2017-04-08] MEDS: Cardizem CD 180 MG PO SCH (12:52)
[2017-04-08] MEDS: Tussionex Pennkinetic Susp PO PRN (20:18)
[2017-04-08] MEDS: ECOTRIN 81 MG PO SCH (22:42)
[2017-04-08] MEDS: LUMIGAN 0.01% 2.5 ML OP SCH (22:43)
[2017-04-09] MEDS: Xopenex 1.25 MG/0.5 ML UD NEBULE IH SCH ×6 (02:58→23:29)
[2017-04-09] MEDS: Sodium Chloride 3 ML UD NEBULES IH SCH ×6 (02:59→23:29)
[2017-04-09 06:00] LABS: Mean Corpuscular Hemoglobin 23.6 pg (26-32); Mean Platelet Volume 11.2 fl (6-9.5); Platelet Count 145 K/mm3 (150-450); Red Blood Count 3.17 M/mm3 (4.1-5.4); Red Cell Distribution Width 18.9 % (11.5-14.0); White Blood Count 7.7 K/mm3 (4.0-10.5)
[2017-04-09 06:22] LABS: BLOOD UREA NITROGEN 19 mg/dL (9-20); CHLORIDE 103 mEq/L (98-107); Carbon Dioxide 28.9 mEq/L (21-32); Glucose 117 MG/DL (70-110); Potassium 3.5 mEq/L (3.5-5.1); SODIUM 138 mEq/L (136-145)
[2017-04-09] MEDS: Sodium Chloride 0.9% 10 ML FLUSH Syringe IV SCH ×3 (06:52→23:15)
--- NOTE | 2017-04-09 09:50 | XRAY ---
Indication: Cough, bronchitis, and flu. Comparison: April 04, 2017. PA/lateral chest again demonstrates chronic right hemidiaphragm elevation with adjacent discoid atelectasis. No focal infiltrate, consolidation, or large effusion. Heart is not enlarged again demonstrating CABG surgery. Bony thorax intact again with mild degenerative changes. Impression: Stable nonacute chest with chronic features.
[2017-04-09] MEDS: Vibramycin 100 MG PO SCH ×2 (09:51→16:26)
[2017-04-09] MEDS: Cardizem CD 120 MG PO SCH (09:51)
[2017-04-09] MEDS: Imdur 30 MG PO SCH ×2 (09:52→23:11)
[2017-04-09] MEDS: DELTASONE 20 MG PO SCH (09:52)
[2017-04-09] MEDS: OSELTAMIVIR PHOSPHATE 30 MG CAP PO SCH ×2 (09:53→23:14)
[2017-04-09] MEDS: Tussionex Pennkinetic Susp PO PRN (09:57)
[2017-04-09] MEDS: TYLENOL 325 MG PO SCH ×4 (09:57→23:11)
[2017-04-09] MEDS: PATIENT OWN MEDICATION OP SCH ×2 (10:00→23:14)
[2017-04-09 10:45] LABS: Total Cells Counted 100
[2017-04-09 10:46] LABS: ANISOCYTOSIS 1+; Hypochromia 2+; Platelet Estimate NORMAL (NORMAL); Poikilocytosis 1+
[2017-04-09 10:47] LABS: Microcytosis 1+
[2017-04-09] MEDS ORDERED: Sodium Chloride 0.9% 500 ML 500 ML IV SCH (11:30)
--- NOTE | 2017-04-09 13:37 | PCM.NOTE ---
Date and Time: 04/09/17 1331 Subjective Assessment: Patient reports that when she lies down, she has a cough and her lower abdomen and right side hurt a lot when she coughs. She denies constipation but does report that she had a formed black stool today. She reports she felt palpitations yesterday. Of note, her diltiazem was held but I did not know that her nurse held it until I saw it marked as not given in her MAR when I was looking in her chart today. She reports she doesn't have much appetite but she has been eating. She is usually able to take care of herself and her elderly mother at home without any problem and she would like to feel good enough to do this again. - Review of Systems Constitutional: Fatigue Eyes: No Symptoms Ears, Nose, & Throat: No Symptoms Respiratory: Cough, Short Of Breath Cardiac: Palpitations Abdominal/Gastrointestinal: Other (black stools), No Diarrhea, No Constipation Genitourinary Symptoms: No Symptoms Musculoskeletal: No Symptoms Skin: No Symptoms Objective Exam General Appearance: no apparent distress Neurologic Exam: alert, cooperative, normal mood/affect Skin Exam: normal color, warm, dry, No rash Respiratory Exam: normal breath sounds, other (cough when lying down), No respiratory distress, No crackles/rales, No rhonchi, No wheezing Cardiovascular Exam: regular rate/rhythm, normal heart sounds, No friction rub, No gallop, No tachycardia Gastrointestinal/Abdomen Exam: soft, normal bowel sounds, No tenderness, No distention Extremity Exam: other (no c/c/e) OBJECTIVE DATA Vital Signs: Vital Signs - 24 hr Temp Pulse Resp BP Pulse Ox 04/09/17 13:00 16 04/09/17 11:51 97.4 F 71 16 128/70 95 04/09/17 11:32 92 L 04/09/17 09:00 16 04/09/17 07:54 97.9 F 80 16 144/64 91 L 04/09/17 06:45 80 18 97 04/09/17 05:00 19 04/09/17 04:00 97.6 F 115 H 19 156/70 95 04/09/17 02:58 115 H 19 95 04/09/17 01:00 21 04/09/17 00:00 98.1 F 91 H 21 167/67 94 L 04/08/17 23:14 91 H 21 94 L 04/08/17 21:00 24 04/08/17 20:00 98.4 F 76 24 128/60 94 L 04/08/17 18:44 78 20 94 L 04/08/17 16:00 98.2 F 70 18 113/56 94 L 04/08/17 15:00 76 16 94 L Oxygen-Last 24 hours O2 Percentage 2 Liters = 28% O2 Percentage 2 Liters = 28% O2 Percentage 3 Liters = 32% Pain Assessment - Last Documented Pain Intensity 0 Pain Scale Used 0-10 Pain Scale Intake and Output: Intake & Output 04/07/17 04/08/17 04/09/17 04/10/17 06:59 06:59 06:59 06:59 Intake Total 859 600 680 360 Output Total 1876 614 3159 Balance -441 0 -620 360 Weight 73.227 kg 73.539 kg 81.193 kg Lab Results: Lab Results-Last 24 Hours 04/09/17 04/09/17 04/09/17 Range/Units 05:40 05:40 09:45 WBC 7.7 (4.0-10.5) K/mm3 RBC 3.17 L (4.1-5.4) M/mm3 Hgb 7.5 L (12.0-16.0) gm/dl Hct 26.0 L (35-47) % MCV 82.0 (78-100) fl MCH 23.6 L (26-32) pg MCHC 28.8 L (32-36) g/dl RDW 18.9 H (11.5-14.0) % Plt Count 145 L (150-450) K/mm3 MPV 11.2 H (6-9.5) fl Segmented Neutrophils 73 H (36.0-66.0) % Lymphocytes (Manual) 24 (24-44) % Monocytes (Manual) 3 (0.0-12.0) % Differential Comment ABNORMAL Platelet Estimate NORMAL (NORMAL) Hypochromasia 2+ Poikilocytosis 1+ Anisocytosis 1+ Microcytosis 1+ Sodium 138 (136-145) mEq/L Potassium 3.5 (3.5-5.1) mEq/L Chloride 103 (98-107) mEq/L Carbon Dioxide 28.9 (21-32) mEq/L Anion Gap 10.0 (5-15) MEQ/L BUN 19 (9-20) mg/dL Creatinine 0.69 (0.55-1.30) mg/dl Estimated GFR > 60 ML/MIN Glucose 117 H (70-110) MG/DL Calcium 8.6 (8.5-10.1) mg/dL ABO Group AB Rh Factor POSITIVE Antibody Screen NEGATIVE (NEGATIVE) Crossmatch COMPATIBLE (COMPATIBLE) 04/09/17 Range/Units 09:45 WBC (4.0-10.5) K/mm3 RBC (4.1-5.4) M/mm3 Hgb (12.0-16.0) gm/dl Hct (35-47) % MCV (78-100) fl MCH (26-32) pg MCHC (32-36) g/dl RDW (11.5-14.0) % Plt Count (150-450) K/mm3 MPV (6-9.5) fl Segmented Neutrophils (36.0-66.0) % Lymphocytes (Manual) (24-44) % Monocytes (Manual) (0.0-12.0) % Differential Comment Platelet Estimate (NORMAL) Hypochromasia Poikilocytosis Anisocytosis Microcytosis Sodium (136-145) mEq/L Potassium (3.5-5.1) mEq/L Chloride (98-107) mEq/L Carbon Dioxide (21-32) mEq/L Anion Gap (5-15) MEQ/L BUN (9-20) mg/dL Creatinine (0.55-1.30) mg/dl Estimated GFR ML/MIN Glucose (70-110) MG/DL Calcium (8.5-10.1) mg/dL ABO Group Rh Factor Antibody Screen (NEGATIVE) Crossmatch COMPATIBLE (COMPATIBLE) Radiology Exams: Radiology Procedures Category Date Time Status CHEST 2 VIEWS (PA AND LAT) Routine Exams 04/09/17 Completed Multi-Disciplinary Progress Notes: Multi-Disciplinary Progress Notes 04/09/17 10:15 (created 04/09/17 11:00) Case Management Note by Irena Lawrence PT CONTINUES TO PLAN TO RETURN HOME TO PRE EPISODIC LEVEL OF FNX. INDEPENDENT WITH ALL ADL'S. DENIES ANY ADDNL NEEDS FOR DISCHARGE. WILL FOLLOW. Initialized on 04/09/17 11:00 - END OF NOTE 04/09/17 08:44 Respiratory Note by Mcfall,Cayla PT'S OXYGEN SAT ON ROOM AIR WHILE AT REST WAS 94%. PT'S OXYGEN SAT ON ROOM AIR WHILE WALKING WAS 92%. NURSE AWARE. Initialized on 04/09/17 08:44 - END OF NOTE Assessment/Plan (1) Influenza A Current Visit: Yes Status: Acute Assessment & Plan: Continue tamiflu. She will finish 5 days after her evening dose today and then I will stop this. Infectious control said she needed to be in isolation for 7 days. Continue with symptomatic treatment with cough medication and tylenol as needed. Code(s): J10.1 - FLU DUE TO OTH IDENT INFLUENZA VIRUS W OTH RESP MANIFEST (2) Coronary artery disease Current Visit: Yes Status: Acute Qualifiers: Coronary Disease-Associated Artery/Lesion type: bypass graft [place] vs. transplanted heart: [place] heart Associated angina: with stable angina Qualified Code(s): I25.708 - Atherosclerosis of coronary artery bypass graft(s) , unspecified, with other forms of angina pectoris Assessment & Plan: Her lead worker of housekeeping and laundry saw her and her blood thinner was stopped. Code(s): I25.10 - ATHSCL HEART DISEASE OF [place] CORONARY ARTERY W/O ANG PCTRS (3) Hypertension Current Visit: Yes Status: Chronic Qualifiers: Hypertension type: essential hypertension Qualified Code(s): I10 - Essential (primary) hypertension Assessment & Plan: Her blood pressure was higher yesterday since her cardizem was not given. Code(s): I10 - ESSENTIAL (PRIMARY) HYPERTENSION (4) Anemia Current Visit: Yes Status: Chronic Qualifiers: Anemia type: iron deficiency [place] deficiency anemia type: chronic blood loss Qualified Code(s): D50.0 - Iron deficiency anemia secondary to blood loss (chronic) Assessment & Plan: Her hemoglobin is below 8 again and she has known coronary artery disease with heme positive stool as an out patient and referral made as outpatient for evaluation by surgeon for colonoscopy and now with black stool. Will transfuse 2 units PRBC's and continue to monitor. She is not stable for a colonoscopy/ scope at this time unless it became emergent. Will start PPI. I discussed with her the risks and benefits of blood transfusion and she is willing to receive this. Code(s): D64.9 - ANEMIA, UNSPECIFIED (5) Pneumonia Current Visit: Yes Status: Acute Qualifiers: Pneumonia type: due to unspecified organism Laterality: right Lung location: lower lobe of lung Qualified Code(s): J18.1 - Lobar pneumonia, unspecified organism Assessment & Plan: Sputum culture grew Staph aureus. Continue with doxycycline and recheck chest X -ray today. Her oxygen saturation is better and she did not qualify for oxygen at home. Code(s): J18.9 - PNEUMONIA, UNSPECIFIED ORGANISM
[2017-04-09] MEDS: Protonix 40MG Tablet PO SCH (14:21)
[2017-04-09] MEDS ORDERED: Tussionex Pennkinetic Susp PO PRN (17:17)
[2017-04-09] MEDS: ECOTRIN 81 MG PO SCH (23:11)
[2017-04-09] MEDS: LUMIGAN 0.01% 2.5 ML OP SCH (23:12)
[2017-04-10] MEDS: Xopenex 1.25 MG/0.5 ML UD NEBULE IH SCH ×3 (03:28→10:16)
[2017-04-10] MEDS: Sodium Chloride 3 ML UD NEBULES IH SCH ×2 (03:28→06:49)
--- NOTE | 2017-04-10 08:25 | PCM.DCORD ---
- Discharge Discharge Date: 04/10/17 Disposition: Home, Self-Care Condition: Good Prescriptions: New Albuterol Sulfate [Albuterol Sulfate Hfa] 2 puffs IH Q4H PRN #1 [id number] PRN Reason: Cough Diltiazem HCl [Cardizem Cd] 180 mg PO QAM #30 cap.er.24h PANTOPRAZOLE 40 mg Tablet [Protonix 40MG Tablet] 40 mg PO DAILY #30 tab Hydrocod Psx/Chlor-Haresh [Tussionex Pennkinetic Susp] 5 ml PO BIDPRN PRN #60 ml PRN Reason: Cough Acetaminophen 325 mg [Tylenol 325 mg] 650 mg PO QID tablet Doxycycline Hyclate 100 mg [Vibramycin 100 MG] 100 mg PO BIDWM #12 tab Continue [place]-3/Dha/Epa/Fish Oil [Fish Oil 1,000 mg Softgel] 1,000 mg PO BID Ezetimibe 10 mg [Zetia 10 MG] 10 mg PO HS Bimatoprost 0.01% [Lumigan 0.01% 2.5 ml] 2.5 ml OP HS Aspirin [[place] Aspirin] 81 mg PO HS Nitroglycerin 0.4 mg Tablet [Nitrostat 0.4 MG Tablet] 0.4 mg SL UD Isosorbide Mononitrate [Isosorbide Mononitrate ER] 30 mg PO BID Brinzolamide/Brimonidine Tart [Simbrinza 1%-0.2% Eye Drops] 8 ml OP BID Additional Instructions: Do not take Effient, diovan (valsartan), metoprolol (lopressor). Do not take your iron until you have finished the doxycycline. Follow up with: NIRALI KAPADIA [Primary Care Provider] - 04/17/17 10:15 am
[2017-04-10] MEDS: Vibramycin 100 MG PO SCH (08:26)
[2017-04-10] MEDS: Protonix 40MG Tablet PO SCH (08:27)
[2017-04-10] MEDS: Imdur 30 MG PO SCH (08:27)
[2017-04-10] MEDS: DELTASONE 20 MG PO SCH (08:27)
[2017-04-10] MEDS: TYLENOL 325 MG PO SCH (08:27)
[2017-04-10] MEDS: Cardizem CD 120 MG PO SCH (08:35)
[2017-04-10] MEDS: PATIENT OWN MEDICATION OP SCH (08:35)
[2017-04-10] MEDS: OSELTAMIVIR PHOSPHATE 30 MG CAP PO SCH (08:53)
[2017-04-10] MEDS: Sodium Chloride 0.9% 10 ML FLUSH Syringe IV SCH (09:00)
[2017-04-10] MEDS ORDERED: PROVENTIL COMMON CANISTER IH SCH (10:00)
[2017-04-10 12:25] VITALS: BP 151/69; PULSE 78; O2SAT 93
--- NOTE | 2017-04-14 09:14 | DS ---
DISCHARGE DIAGNOSES: 1) PNEUMONIA. 2) INFLUENZA A. 3) CORONARY ARTERY DISEASE. 4) HYPERTENSION. 5) TACHYCARDIA. 6) ANEMIA. DISCHARGE PHYSICAL EXAMINATION: VITALS: Temperature current 98.3F, temperature max 98.3F, heart rate 78 to 89, respiratory rate 18 to 20, blood pressure 151 to 158 over 67 to 69. Oxygen saturation 90 to 93% on room air. GENERAL: The patient is a pleasant lady sitting up in no acute distress. CVS: She had a regular rate and rhythm. No murmurs, gallops or rubs. CHEST: Clear to auscultation bilaterally. No crackles or wheezes. She had equal breath sounds. ABDOMEN: Mildly tender in the lower quadrants bilaterally. She had an abdominal binder in place. Normal bowel sounds. No guarding. No rigidity. EXTREMITIES: No clubbing, cyanosis or edema. SKIN: Warm, dry and intact. HOSPITAL COURSE: 1) PNEUMONIA: The clinical diagnosis from the chest x-ray on admission was clear and repeat one a couple days before discharge was clear as well. She had been started on Levaquin and this was changed to doxycycline on 04/06/2017 as she had a sputum culture that grew Staphylococcus aureus that was resistant to Levaquin. She was changed to doxycycline 100 mg p.o. b.i.d. and was continued on this during her hospitalization. She had reported tetracycline allergy as well as allergy to multiple other antibiotics but when we checked with the patient her only allergy to the tetracycline was itching and she did not experience this when she was on the doxycycline during her stay. She was discharged on the doxycycline to finish out a ten day course. She was on oxygen during her hospitalization but was able to be weaned off and did not qualify for home oxygen. 2) INFLUENZA A: She tested positive for influenza A after her admission. She was started on Tamiflu and finished a five day course of this. She was kept on contact isolation once we had the positive test and this was continued through her hospitalization. She was on breathing treatments with Xopenex during her hospitalization. At the time of discharge she was not having as much wheezing and respiratory therapist was going to teach her how to use an Albuterol inhaler and she was discharged with an Albuterol inhaler. 3) CORONARY ARTERY DISEASE: She was seen by her heading matcher and assembler by telecardiology during her hospital stay for the coronary artery disease and also tachycardia that she had developed. He discontinued her anticoagulant during her hospital stay and he agreed with the changes that we had already made which was to discontinue her ARB and metoprolol and start Cardizem to help control her heart rate. The patient did not have any chest pain during her hospitalization. 4) HYPERTENSION: Her blood pressure was fairly well controlled with the Cardizem. On the day of discharge it was a little bit high and I told her that we may need to adjust her medication as an outpatient when we follow up with her. 5) TACHYCARDIA: Again, her heading matcher and assembler saw her and agreed with the Cardizem. As long as she was on the Cardizem her heart rate was controlled. One day the nurse held it because her blood pressure had been a little bit lower and that day she reported that she had felt palpitations. When I saw her the next morning again I noticed the Cardizem had been held. 6) ANEMIA: She was given 1 unit of packed red blood cells on 04/05/2017 and 2 units on 04/09/2017 as both times her hemoglobin was below 8 and she has history of coronary artery disease. Also on 04/09/2017, she was feeling quite fatigued. The patient felt better after the second transfusion. The patient is already being worked up as an outpatient for heme-positive stool and has an outpatient appointment with a general surgeon to discuss a colonoscopy. I also started her on iron as an outpatient which I will have her restart after she is finished with the doxycycline. DISCHARGE MEDICATIONS: Albuterol 2 puffs every four hours as needed for cough, diltiazem CD 180 mg p.o. q.a.m., pantoprazole 40 mg daily, Tussionex 5 ml p.o. b.i.d. PRN cough #60, acetaminophen 650 mg p.o. four times a day, doxycycline 100 mg p.o. t.i.d., fish oil 1,000 mg p.o. b.i.d., Zetia 10 mg p.o. q.h.s., Lumigan drops as directed, aspirin 81 mg p.o. q.h.s., nitroglycerin 0.4 mg sublingual as needed for chest pain, isosorbide mononitrate 30 mg p.o. b.i.d., Simbrinza eye drops as directed. She was to not take the Effient, Diovan or metoprolol and she can restart her ferrous sulfate after the doxycycline was finished. DISPOSITION: She is to follow up with me in the clinic which was scheduled for 04/17/2017. She was discharged to home in good condition.
== END 2017-04-10 10:55 | disposition home or self-care (01) | DRG 178 ==
LOC: ED 12:03 → MED SURG 14:35 → OBSVTOIN 04-06 08:55
PROVIDERS: ADMIT Family Medicine; ATTEND Internal Medicine
DX: J11.08 Influenza due to unidentified influenza virus with specified pneumonia (principal); J15.211 Pneumonia due to Methicillin susceptible Staphylococcus aureus; I47.1 Supraventricular tachycardia; R19.7 Diarrhea, unspecified; D50.0 Iron deficiency anemia secondary to blood loss (chronic); E87.6 Hypokalemia; I25.708 Atherosclerosis of coronary artery bypass graft(s), unspecified, with other forms of angina pectoris; I10 Essential (primary) hypertension; K76.0 Fatty (change of) liver, not elsewhere classified; K43.9 Ventral hernia without obstruction or gangrene; E78.5 Hyperlipidemia, unspecified; I73.9 Peripheral vascular disease, unspecified; Z79.899 Other long term (current) drug therapy
CPT/HCPCS: 36000; 36415; 36430; 71020; 74022; 80048; 80053; 81000; 82150; 83690; 83880; 85014; 85018; 85025; 86850; 86900; 86901; 86922; 87040; 87070; 87077; 87086; 87186; 87631; 93005; 94640; 94760; 94762; 96360; 96361; 96365; 96374; 99285; G0378; J1956; J2405; J2920; P9016; P9612; Q3014; A9270-GY; J7506

== ENCOUNTER 2017-06-04 09:35 | Day surgery (SDC) | payer MEDICARE, OTHER ==
[~2017-06-04 09:35] MED LIST: CLINDAMYCIN-D5W 900 MG/50 ML*** 900 MG/50 ML BAG IV SCH; Lactated Ringers 1,000 ML IV ONE; Lactated Ringers 1,000 ML IV SCH; Sensorcaine 0.25% 10 ML ONE
[2017-06-04] MEDS ORDERED: Versed 2 MG/2 ML Injection IV ONE (09:36)
[2017-06-04] MEDS ORDERED: SUBLIMAZE 100 MCG/2 ML IV ONE (09:36)
[2017-06-04] MEDS ORDERED: Lactated Ringers 1,000 ML IV ONE (09:48)
[2017-06-04 13:06] LABS: ALBUMIN 3.7 g/dL (3.4-5.0); ALKALINE PHOSPHATASE 192 U/L (46-116); ANION GAP 15.5 MEQ/L (5-15); BLOOD UREA NITROGEN 9 mg/dL (9-20); CHLORIDE 104 mEq/L (98-107); Calcium 9.4 mg/dL (8.5-10.1); Carbon Dioxide 23.5 mEq/L (21-32); Creatinine 1 0.59 mg/dl (0.55-1.30); EST GLOMERULAR FILTRATION RATE > 60 ML/MIN; Glucose 104 MG/DL (70-110); Potassium 3.9 mEq/L (3.5-5.1); SGOT/AST 44 U/L (15-37); SGPT/ALT 25 U/L (12-78); SODIUM 139 mEq/L (136-145); Total Protein 7.6 gm/dL (6.4-8.2)
[2017-06-04] MEDS ORDERED: Xopenex 1.25 MG/0.5 ML UD NEBULE IH ONE (13:54)
[2017-06-04] MEDS ORDERED: Sodium Chloride 3 ML UD NEBULES IH ONE (13:54)
[2017-06-04] MEDS ORDERED: Lactated Ringers 0 ML IV ONE (14:01)
--- NOTE | 2017-06-04 15:44 | OP ---
AMENDED REPORT: SURGERY DATE/TIME: 06/04/2017 1229 PREOPERATIVE DIAGNOSES: 1) Ventral hernia. 2) Anemia. POSTOPERATIVE DIAGNOSES: 1) Ventral hernia. 2) EGD normal. 3) Colonoscopic examination with some mild old blood and possible old colitis nearly resolved, three polyps. 4) Moderate internal hemorrhoids. PROCEDURES: 1) Ventral herniorrhaphy with no mesh. 2) EGD. 3) Colonoscopy. SURGEON: Alec Campbell M.D. ANESTHESIA: General. COMPLICATIONS: None. CONDITION: Stable. INDICATION: A patient with ventral hernia. Marked preoperatively. She also had anemia with EGD and colonoscopy. DESCRIPTION OF PROCEDURE: She was taken to surgery. General anesthetic, routine prep and drape. A transverse incision. A 4 cm hernia sac was mobilized and reduced. Fascial repair primarily with suture #0 Prolene placed and tied down. Laparoscope was performed. It was placed around the endotracheal tube. Esophagus normal down to gastroesophageal junction. There is grade I-III esophagitis. There is no hiatal hernia. Fundus, body, antrum, pylorus, duodenal bulb and second portion satisfactory. Scope withdrawn. No additional lesions noted. Anal digital examination. The scope inserted, scope advanced to the cecum. On circumferential withdrawal no mucosal lesions were noted. IMPRESSION: Normal colonoscopic examination.
[2017-06-04 16:35] VITALS: BP 131/65; PULSE 84; O2SAT 95
== END 2017-06-04 15:40 | disposition home or self-care (01) ==
LOC: SDC 09:35
PROVIDERS: ATTEND Surgery
PROC: 0WQF0ZZ Repair Abdominal Wall, Open Approach (ICD-10-PCS; principal; 2017-06-04)
PROC: 0DJ08ZZ Inspection of Upper Intestinal Tract, Via Natural or Artificial Opening Endoscopic (ICD-10-PCS; 2017-06-04)
PROC: 0DBK8ZX Excision of Ascending Colon, Via Natural or Artificial Opening Endoscopic, Diagnostic (ICD-10-PCS; 2017-06-04)
PROC: 0DBH8ZX Excision of Cecum, Via Natural or Artificial Opening Endoscopic, Diagnostic (ICD-10-PCS; 2017-06-04)
DX: K43.9 Ventral hernia without obstruction or gangrene (principal); D64.9 Anemia, unspecified; K63.5 Polyp of colon; K64.8 Other hemorrhoids
CPT/HCPCS: 00740; 00810; 00832; 36415; 80053; 88305; 94640; 99100; J2250; J3010; A9270-GY

== ENCOUNTER 2018-08-12 07:24 | Day surgery (SDC) | payer MEDICARE ==
--- NOTE | 2018-08-11 14:22 | HP ---
REPORT DICTATED AND TRANSCRIBED AT [facility] ON 08/10/2018, FAXED TO [facility] ON 08/11/2018. DATE OF SURGERY: 08/12/2018 ANTICIPATED PROCEDURES: 1) EGD. 2) Colonoscopy. HISTORY OF PRESENT ILLNESS: Patient has black stool with hemoglobin 7.7. PAST MEDICAL HISTORY: ALLERGIES: PENICILLIN, TETRACYCLINE, SULFA, CECLOR, DEMEROL. MEDICATIONS: Diltiazem, isosorbide, Protonix, Zetia, pravastatin, lorazepam. PAST SURGICAL HISTORY: Hysterectomy. Carotid endarterectomy. Cholecystectomy. Hernia surgery. Bypass 09/08/1996. Knee replacement 2004, Knee replacement 2006. SOCIAL HISTORY: Negative. FAMILY HISTORY: Negative. PHYSICAL EXAMINATION: VITAL SIGNS: Normal. CHEST: Clear. COR: Regular. ABDOMEN: No palpable organomegaly. No mass. IMPRESSION: Anemia, possible gastrointestinal. PLAN: EGD, colonoscopy.
[~2018-08-12 07:24] MED LIST changes: -CLINDAMYCIN-D5W 900 MG/50 ML*** 900 MG/50 ML BAG IV SCH; -Lactated Ringers 1,000 ML IV ONE; -Sensorcaine 0.25% 10 ML ONE
[2018-08-12] MEDS ORDERED: DIPRIVAN 200 MG/20 ML IV ONE (07:25)
[2018-08-12] MEDS ORDERED: Zofran 4 MG/2 ML VIAL ONE (11:38)
--- NOTE | 2018-08-12 11:45 | OP ---
SURGERY DATE/TIME: 08/12/2018 1101 PREOPERATIVE DIAGNOSIS: Anemia. POSTOPERATIVE DIAGNOSES: 1) Normal upper endoscopic examination with nothing recently or ever bleeding. 2) Lower limited splenic flexure because of severe angulation and severe diverticulosis. No visible bleeding or visible mucosal lesions. A barium enema has been ordered in six weeks to evaluate the rest of the right colon. PROCEDURES: 1) EGD. 2) Colonoscopy. SURGEON: Alec Campbell M.D. ANESTHESIA: MAC. COMPLICATIONS: None. CONDITION: Stable. INDICATION: A patient requiring evaluation. DESCRIPTION OF PROCEDURE: Taken to endoscopy. MAC sedation provided. Scope introduced. Pharyngoesophageal junction normal. Esophagus normal. Gastroesophageal junction normal. The fundus, body and antrum was normal. Pylorus normal. Duodenal bulb normal. The scope withdrawn and looped upon itself normal. Scope withdrawn normal. Anal digital examination rectum, sigmoid severe diverticulosis. The scope was down at the splenic flexure and it cannot be proceeded further. There was a very light mucosal scrape. It felt prudent not to get a barium enema today. We will get a barium enema in about six weeks. The patient tolerated the procedure satisfactorily. There were no mucosal lesions on the left colon that was visualized.
[2018-08-12 12:40] VITALS: BP 158/73; PULSE 83; O2SAT 92
== END 2018-08-12 12:53 | disposition home or self-care (01) ==
LOC: SDC 07:24
PROVIDERS: ATTEND Surgery
DX: D64.9 Anemia, unspecified (principal); K57.30 Diverticulosis of large intestine without perforation or abscess without bleeding
CPT/HCPCS: J2405; J2704

== ENCOUNTER 2019-04-07 10:36 | Emergency (ER) | payer MEDICARE ==
[2019-04-07 10:55] VITALS: PULSE 97; O2SAT 98
[2019-04-07] MEDS ORDERED: MORPHINE SULFATE 2 MG INJ IV ONE (11:09)
[2019-04-07] MEDS ORDERED: Zofran 4 MG/2 ML VIAL IV ONE (11:09)
--- NOTE | 2019-04-07 11:09 | ERPHSYRPT ---
- History of Present Illness Time Seen by Provider: 04/07/19 11:00 Historian: patient Exam Limitations: no limitations Patient Subjective Stated Complaint: pt here for cramping and loose stools since thursday, no nausea or vomiitng, chills ,no fever Triage Nursing Assessment: pt alert, resp easy, skin w/d/p. and soft with BS heard , moves all ext well Physician History: ppatient is 8 for 5 days a week the abdominal discomfort and diarrhea. She has a history pancreatitis and diverticulosis in the past. Patient says the diarrhea is watery and she saw a few drops of blood also. Timing/Duration: day(s) (5) Activities at Onset: none Quality: cramping Abdominal Pain Onset Location: generalized abdomen Pain Radiation: no radiation Severity of Pain-Max: moderate Severity of Pain-Current: moderate Modifying Factors: Improves With: defecating Associated Symptoms: other (Rectal pain due to Diarrhoea), No chest pain, No diaphoresis, No headache, No shortness of breath, No weakness Allergies/Adverse Reactions: acetaminophen [From Vicodin] Allergy (Intermediate, Verified 04/07/19 10:55) Nausea and Vomiting Penicillins Allergy (Intermediate, Verified 04/07/19 10:55) Rash sulfadiazine Allergy (Intermediate, Verified 04/07/19 10:55) Itching amlodipine [From Norvasc] Adverse Reaction (Intermediate, Verified 04/07/19 10: 55) hydrocodone Adverse Reaction (Intermediate, Verified 04/07/19 10:55) Itching meperidine [From Demerol] Adverse Reaction (Intermediate, Verified 04/07/19 10: 55) Nausea and Vomiting sulfamethoxazole [From Bactrim] Adverse Reaction (Intermediate, Verified 10:55) Itching tetracycline Adverse Reaction (Intermediate, Verified 04/07/19 10:55) Rash trimethoprim [From Bactrim] Adverse Reaction (Intermediate, Verified 04/07/19 10 :55) Itching cefaclor Adverse Reaction (Verified 04/07/19 10:55) fenofibrate [From Tricor] Adverse Reaction (Verified 04/07/19 10:55) Home Medications: Bimatoprost 0.01% [Lumigan 0.01% 2.5 ml] 2.5 ml OP HS 07/23/18 [History] Brinzolamide/Brimonidine Tart [Simbrinza 1%-0.2% Eye Drops] 8 ml OP BID [History] Cholecalciferol (Vitamin D3) [Vitamin D] 1,000 unit PO DAILY 07/23/18 [ History] Diltiazem HCl 240 mg [Cardizem CD 240 MG] 240 mg PO DAILY 07/23/18 [ History] Ezetimibe 10 mg [Zetia 10 MG] 10 mg PO DAILY 07/23/18 [History] Ferrous Sulfate 325 mg [Feosol 325 mg] 325 mg PO DAILY 07/23/18 [History] Isosorbide Mononitrate 30 mg [Imdur 30 MG] 30 mg PO DAILY 07/23/18 [History ] Mecobalamin [B-12] 1,000 mcg SL DAILY 07/23/18 [History] Nitroglycerin 0.4 mg Tablet [Nitrostat 0.4 MG Tablet] 0.4 mg SL UD [History] PANTOPRAZOLE 40 mg Tablet [Protonix 40MG Tablet] 40 mg PO QAM 07/23/18 [ History] Pravastatin Sodium 20 mg PO HS 07/23/18 [History] Hx Tetanus, Diphtheria Vaccination/Date Given: No Hx Influenza Vaccination/Date Given: Yes Hx Pneumococcal Vaccination/Date Given: Yes Immunizations Up to Date: Yes - Review of Systems Constitutional: No Fever, No Chills Eyes: No Symptoms Ears, Nose, & Throat: No Symptoms Respiratory: No Cough, No Dyspnea Cardiac: No Chest Pain, No Edema, No Syncope Abdominal/Gastrointestinal: Abdominal Pain, Nausea, Diarrhea, Other (Few drops of blood in stool once), No Vomiting Genitourinary Symptoms: No Dysuria Musculoskeletal: No Symptoms, No Back Pain, No Neck Pain Skin: No Rash Neurological: No Dizziness, No Focal Weakness, No Sensory Changes Psychological: No Symptoms Endocrine: No Symptoms All Other Systems: Reviewed and Negative - Past Medical History Pertinent Past Medical History: Yes Neurological History: No Pertinent History ENT History: Glaucoma, Macular Degeneration Cardiac History: Arrhythmia, Coronary Artery Disease, High Cholesterol, Hypertension, Myocardial Infarction (SC), Peripheral Vascular Disease Respiratory History: No Pertinent History Endocrine Medical History: No Pertinent History Musculoskeletal History: Arthritis GI Medical History: Diverticulitis, GERD, Gallbladder Disease, Hernia, Pancreatitis, Other History: Other Psycho-Social History: No Pertinent History Female Reproductive Disorders: Menstrual Problems, Other Other Medical History: UTI's. basil cell. anemia. reflux., recent cold - Past Surgical History Past Surgical History: Yes Neuro Surgical History: No Pertinent History Cardiac: CABG, Cardiac Catheterization, Cardiac Stent Respiratory: No Pertinent History Gastrointestinal: Cholecystectomy Genitourinary: No Pertinent History Musculoskeletal: Joint Replacement Female Surgical History: No Pertinent History Other Surgical History: bilat knees, left CEA. 2 stents in right leg and one in left leg. - Social History Smoking Status: Never smoker Exposure to second hand smoke: No Drug Use: none Patient Lives Alone: Yes - Female History Hx Last Menstrual Period: post Hx Now: No - Nursing Vital Signs Nursing Vital Signs: Initial Vital Signs Temperature 97.8 F 04/07/19 10:48 Pulse Rate 97 H 04/07/19 10:48 Respiratory Rate 18 04/07/19 10:48 Blood Pressure 173/99 04/07/19 10:48 O2 Sat by Pulse Oximetry 98 04/07/19 10:48 Pain Scale Pain Intensity 2 - Physical Exam General Appearance: no apparent distress, alert Eye Exam: PERRL/EOMI, eyes nml inspection Ears, Nose, Throat Exam: normal ENT inspection, pharynx normal, moist mucous membranes Neck Exam: normal inspection, non-tender, supple, full range of motion Respiratory Exam: normal breath sounds, lungs clear, No respiratory distress Cardiovascular Exam: regular rate/rhythm, normal heart sounds Gastrointestinal/Abdomen Exam: soft, tenderness (Mild lower abd tenderness), No distention, No mass, No guarding, No ecchymosis, No pulsatile mass, No rebound, No organomegaly Back Exam: normal inspection, normal range of motion, No CVA tenderness, No vertebral tenderness Extremity Exam: normal inspection, normal range of motion, pelvis stable Neurologic Exam: alert, oriented x 3, cooperative, normal mood/affect, nml cerebellar function, sensation nml, No motor deficits Skin Exam: normal color, warm, dry SpO2: 98 - Course Nursing assessment & vital signs reviewed: Yes - CT Exams Abdomen/Pelvis CT Interpretation: Discussed w/radiologist, Other (Colitis) Ordered Tests: Active Orders 24 hr Category Date Time Status IV Insertion STAT Care 04/07/19 11:09 Active ABDOMEN AND PELVIS W CONTRAST [CT] Stat Exams 04/07/19 11:10 Completed CBC W DIFF Stat Lab 04/07/19 11:55 Completed CMP Stat Lab 04/07/19 11:55 Completed CULTURE,URINE Stat Lab 04/07/19 11:10 Received Lactic Acid Stat Lab 04/07/19 11:55 Completed Occult Blood, Other Screening Stat Lab 04/07/19 11:10 Uncollected UA W/RFX UR CULTURE Stat Lab 04/07/19 11:10 Completed Medication Summary Generic Name Dose Route Start Last Admin Trade Name Freq PRN Reason Stop Dose Admin Sodium Chloride 1,000 mls @ 100 mls/hr 04/07/19 11:15 04/07/19 11:52 Sodium Chloride 0.9% 1000 Ml IV 05/07/19 11:14 100 mls/hr .Q10H RAY Administration Discontinued Medications Generic Name Dose Route Start Last Admin Trade Name Freq PRN Reason Stop Dose Admin Morphine Sulfate 2 mg 04/07/19 11:09 04/07/19 11:51 Morphine Sulfate 2 Mg Inj IV 04/07/19 11:10 2 mg STAT ONE Administration Morphine Sulfate Confirm 04/07/19 11:48 Morphine Sulfate 2 Mg Inj Administered 04/07/19 11:49 Dose 2 mg .ROUTE .STK-MED ONE Ondansetron HCl 4 mg 04/07/19 11:09 04/07/19 11:51 Zofran 4 Mg/2 Ml Vial IV 04/07/19 11:10 4 mg STAT ONE Administration Ondansetron HCl Confirm 04/07/19 11:48 Zofran 4 Mg/2 Ml Vial Administered 04/07/19 11:49 Dose 4 mg .ROUTE .STK-MED ONE Lab/Rad Data: Laboratory Result Diagrams 04/07/19 11:55 04/07/19 11:55 Laboratory Results 04/07/19 04/07/19 04/07/19 Range/Units 11:55 11:55 11:55 WBC 8.6 (4.0-10.5) K/mm3 RBC 4.15 (4.1-5.4) M/mm3 Hgb 13.2 (12.0-16.0) gm/dl Hct 40.0 (35-47) % MCV 96.4 (78-100) fl MCH 31.8 (26-32) pg MCHC 33.0 (32-36) g/dl RDW 14.0 (11.5-14.0) % Plt Count 154 (150-450) K/mm3 MPV 11.4 H (6-9.5) fl Gran % 73.4 H (36.0-66.0) % Eos # (Auto) 0.02 (0-0.5) Absolute Lymphs (auto) 1.22 (1.0-4.6) Absolute Monos (auto) 1.02 (0.0-1.3) Lymphocytes % 14.3 L (24.0-44.0) % Monocytes % 11.9 (0.0-12.0) % Eosinophils % 0.2 (0.00-5.0) % Basophils % 0.2 (0.0-0.4) % Absolute Granulocytes 6.28 (1.4-6.9) Basophils # 0.02 (0-0.4) Sodium 141 (137-145) mmol/L Potassium 3.8 (3.5-5.1) mmol/L Chloride 105 (98-107) mmol/L Carbon Dioxide 24 (22-30) mmol/L Anion Gap 15.4 H (5-15) MEQ/L BUN 16 (7-17) mg/dL Creatinine 0.53 (0.52-1.04) mg/dL Estimated GFR > 60.0 ML/MIN Glucose 114 H (74-106) mg/dL Lactic Acid 1.1 (0.4-2.0) Calcium 9.5 (8.4-10.2) mg/dL Total Bilirubin 1.20 (0.2-1.3) mg/dL AST 41 H (14-36) U/L ALT 23 (0-35) U/L Alkaline Phosphatase 179 H (38-126) U/L Serum Total Protein 8.1 (6.3-8.2) g/dL Albumin 4.4 (3.5-5.0) g/dL Urine Color (YELLOW) Urine Appearance (CLEAR) Urine pH (5-6) Ur Specific [place] (1.005-1.025) Urine Protein (Negative) Urine Ketones (NEGATIVE) Urine Blood (0-5) [place]/ul Urine Nitrite (NEGATIVE) Urine Bilirubin (NEGATIVE) Urine Urobilinogen (0-1) mg/dL Ur Leukocyte Esterase (NEGATIVE) Urine WBC (Auto) (0-5) /HPF Urine RBC (Auto) (0-2) /HPF U Epithel Cells (Auto) (FEW) /HPF Urine Bacteria (Auto) (NEGATIVE) /HPF Urine Mucus (Auto) (NEGATIVE) /HPF Urine Culture Reflexed (NO) Urine Glucose (NEGATIVE) mg/dL 04/07/19 Range/Units 11:10 WBC (4.0-10.5) K/mm3 RBC (4.1-5.4) M/mm3 Hgb (12.0-16.0) gm/dl Hct (35-47) % MCV (78-100) fl MCH (26-32) pg MCHC (32-36) g/dl RDW (11.5-14.0) % Plt Count (150-450) K/mm3 MPV (6-9.5) fl Gran % (36.0-66.0) % Eos # (Auto) (0-0.5) Absolute Lymphs (auto) (1.0-4.6) Absolute Monos (auto) (0.0-1.3) Lymphocytes % (24.0-44.0) % Monocytes % (0.0-12.0) % Eosinophils % (0.00-5.0) % Basophils % (0.0-0.4) % Absolute Granulocytes (1.4-6.9) Basophils # (0-0.4) Sodium (137-145) mmol/L Potassium (3.5-5.1) mmol/L Chloride (98-107) mmol/L Carbon Dioxide (22-30) mmol/L Anion Gap (5-15) MEQ/L BUN (7-17) mg/dL Creatinine (0.52-1.04) mg/dL Estimated GFR ML/MIN Glucose (74-106) mg/dL Lactic Acid (0.4-2.0) Calcium (8.4-10.2) mg/dL Total Bilirubin (0.2-1.3) mg/dL AST (14-36) U/L ALT (0-35) U/L Alkaline Phosphatase (38-126) U/L Serum Total Protein (6.3-8.2) g/dL Albumin (3.5-5.0) g/dL Urine Color YELLOW (YELLOW) Urine Appearance SLIGHTLY CLOUDY (CLEAR) Urine pH 5.0 (5-6) Ur Specific [place] 1.011 (1.005-1.025) Urine Protein NEGATIVE (Negative) Urine Ketones TRACE (NEGATIVE) Urine Blood NEGATIVE (0-5) [place]/ul Urine Nitrite NEGATIVE (NEGATIVE) Urine Bilirubin NEGATIVE (NEGATIVE) Urine Urobilinogen NEGATIVE (0-1) mg/dL Ur Leukocyte Esterase SMALL (NEGATIVE) Urine WBC (Auto) 16-25 (0-5) /HPF Urine RBC (Auto) NONE (0-2) /HPF U Epithel Cells (Auto) RARE (FEW) /HPF Urine Bacteria (Auto) PACKED (NEGATIVE) /HPF Urine Mucus (Auto) SLIGHT (NEGATIVE) /HPF Urine Culture Reflexed YES (NO) Urine Glucose NEGATIVE (NEGATIVE) mg/dL - Progress Progress: improved Progress Note: 04/07/19 13:09 no life or limb threatening condition on discharge. No signs of obstruction or peritoneal irritation on discharge. Counseled pt/family regarding: lab results, diagnosis, need for follow-up, rad results - Departure Departure Disposition: Home Clinical Impression: Colitis UTI (urinary tract infection) Qualifiers: Urinary tract infection type: site unspecified Condition: Good Critical Care Time: No Referrals: NIRALI KAPADIA [Primary Care Provider] - Instructions: Colitis, Urinary Tract Infections in Adults Prescriptions: Ciprofloxacin [Cipro 500 MG] 500 mg PO BID #14 tablet Metronidazole 500 mg [Flagyl 500 MG] 500 mg PO TID 7 Days #21 tablet
[2019-04-07] MEDS ORDERED: Sodium Chloride 0.9% 1000 ML 1,000 ML IV SCH (11:15)
[2019-04-07] MEDS ORDERED: Sodium Chloride 0.9% 1000 ML 1,000 ML ONE (11:48)
[2019-04-07] MEDS ORDERED: Zofran 4 MG/2 ML VIAL ONE (11:48)
[2019-04-07] MEDS ORDERED: MORPHINE SULFATE 2 MG INJ ONE (11:48)
[2019-04-07 12:10] LABS: Absolute Neutrophil Ct (ANC) 6.28 (1.4-6.9); BASOPHIL % 0.2 % (0.0-0.4); Basophil (Absolute #) 0.02 (0-0.4); Eosinophil % 0.2 % (0.00-5.0); Eosinophil (Absolute #) 0.02 (0-0.5); Hemoglobin 13.2 gm/dl (12.0-16.0); Lymphocyte (Absolute #) 1.22 (1.0-4.6); Lymphocytes % 14.3 % (24.0-44.0); Mean Cell Volume 96.4 fl (78-100); Mean Corpuscular Hemoglobin 31.8 pg (26-32); Mean Platelet Volume 11.4 fl (6-9.5); Monocyte (Absolute #) 1.02 (0.0-1.3); Monocytes % 11.9 % (0.0-12.0); Neutrophil % 73.4 % (36.0-66.0); Platelet Count 154 K/mm3 (150-450); Red Blood Count 4.15 M/mm3 (4.1-5.4); White Blood Count 8.6 K/mm3 (4.0-10.5)
[2019-04-07 12:13] LABS: ALBUMIN 4.4 g/dL (3.5-5.0); ALKALINE PHOSPHATASE 179 U/L (38-126); ANION GAP 15.4 MEQ/L (5-15); BLOOD UREA NITROGEN 16 mg/dL (7-17); CHLORIDE 105 mmol/L (98-107); Calcium 9.5 mg/dL (8.4-10.2); Carbon Dioxide 24 mmol/L (22-30); Creatinine 1 0.53 mg/dL (0.52-1.04); Glucose 114 mg/dL (74-106); Potassium 3.8 mmol/L (3.5-5.1); SGOT/AST 41 U/L (14-36); SGPT/ALT 23 U/L (0-35); SODIUM 141 mmol/L (137-145); Total Protein 8.1 g/dL (6.3-8.2)
[2019-04-07 12:15] VITALS: BP 135/76
[2019-04-07 12:18] LABS: Appearance SLIGHTLY CLOUDY (CLEAR); Bacteria PACKED /HPF (NEGATIVE); Bilirubin NEGATIVE (NEGATIVE); Blood NEGATIVE Ery/ul (0-5); Epithelial Cells RARE /HPF (FEW); Glucose NEGATIVE (NEGATIVE); Ketones TRACE (NEGATIVE); Leukocyte Esterase SMALL (NEGATIVE); Mucus SLIGHT /HPF (NEGATIVE); Nitrite NEGATIVE (NEGATIVE); Protein,Urine Dip NEGATIVE (Negative); Specific Gravity 1.011 (1.005-1.025); Urobilinogen NEGATIVE mg/dL (0-1)
--- NOTE | 2019-04-07 13:04 | XRAY ---
Indication: Abdomen pain, nausea, vomiting, diarrhea, cramping, and blood in stool. Multiple contiguous axial images obtained through the abdomen and pelvis using 80 cc Isovue 370 contrast. Comparison: July 19, 2018. Lung bases again demonstrates minimal bibasilar atelectasis/scarring. No infiltrate or effusion. Heart is not enlarged. Stable small hiatal hernia. Noncontrasted stomach and bowel loops appear nonobstructed. The colon is now mildly fluid distended with mild multifocal areas of mild bowel wall thickening/enhancement with minimal stranding favoring colitis. No free fluid/air. Stable 2.1 cm calcified mass interposed between the cecum and right kidney. Also stable fatty liver, 12.2 cm splenomegaly, tiny bilateral renal cysts, cholecystectomy, and hysterectomy. Remaining liver, pancreas, spleen, adrenal glands, kidneys, ureters, and bladder appear unremarkable. There remains moderate aortoiliac calcifications. No AAA or pathologic retroperitoneal lymphadenopathy. Osseous structures again demonstrates osteopenia and mild degenerative changes throughout the thoracolumbar spine. Impression: 1. New mild fluid distended colon with multifocal areas of bowel wall thickening/enhancement and stranding favoring colitis. 2. Stable benign right lower quadrant calcified mass, small hiatal hernia, fatty liver, splenomegaly, and renal cysts. CTDI 8.97
== END 2019-04-07 14:29 | disposition home or self-care (01) ==
LOC: ED 10:36
DX: K52.9 Noninfective gastroenteritis and colitis, unspecified (principal); N39.0 Urinary tract infection, site not specified; R19.7 Diarrhea, unspecified; Z79.899 Other long term (current) drug therapy; E78.00 Pure hypercholesterolemia, unspecified; I10 Essential (primary) hypertension; I25.2 Old myocardial infarction; I25.10 Atherosclerotic heart disease of native coronary artery without angina pectoris
CPT/HCPCS: 36000; 36415; 74177; 80053; 81001; 83605; 85025; 87077; 87086; 87186; 96374; 96375; 99284; J2270; J2405

== ENCOUNTER 2022-05-08 12:36 | Observation (INO) | payer MEDICARE ==
[2022-05-08] MEDS ORDERED: Sodium Chloride 0.9% 1000 ML 1,000 ML IV SCH (13:30)
[2022-05-08] MEDS ORDERED: Sodium Chloride 0.9% 1000 ML 1,000 ML ONE (14:34)
--- NOTE | 2022-05-08 14:36 | XRAY ---
Indication: Cough and short of breath. Comparison: April 09, 2017 Portable chest demonstrates new bilateral mid and lower lung hazy interstitial alveolar opacities without consolidation/large effusion. Chronic right hemidiaphragm elevation. Heart not enlarged again with CABG. Bony thorax intact again with osteopenia and degenerative changes.
--- NOTE | 2022-05-08 14:38 | ANESPROCNO ---
Anesthesia Procedure Note - Anesthesia Procedure Note Procedure Date:: 05/08/22 Procedure Time:: 13:15 Anesthesia Procedure Note: Consulted to ER for IV access after multiple attempts per ER staff. Discussed ultrasound guided midline IV placement with patient. Agrees to proceed and informed consent obtained. LUE sterile prep and drape 2%CHG70%IPA. Using ultrasound guidance target vessel identified left basilic vein. Skin and subcutaneous tissue above target vessel localized with 5cc 2% lidocaine. Using a FarFaria Mini Access Kit, target vessel cannulated with 21ga X 7cm echo enhanced needle. A 0.46mm Nitinol guide wire introduced and needle withdrawn. Wire placement in vessel verified in ultrasound long axis. A 4F X 10cm co-axial catheter was placed over wire and wire withdrawn. Catheter with brisk venous blood return and flushes easily. A sterile occlusive dressing was applied. The patient tolerated the procedure well. No complications.
[2022-05-08 14:59] LABS: ALBUMIN 3.7 g/dL (3.5-5.0); ALKALINE PHOSPHATASE 111 U/L (38-126); ANION GAP 12.4 MEQ/L (5-15); BLOOD UREA NITROGEN 14 mg/dL (7-17); CHLORIDE 104 mmol/L (98-107); Calcium 8.6 mg/dL (8.4-10.2); Carbon Dioxide 22 mmol/L (22-30); Creatinine 1 0.49 mg/dL (0.52-1.04); EST GLOMERULAR FILTRATION RATE > 60.0 ML/MIN; Glucose 116 mg/dL (74-106); NT PRO BNP 4290 pg/mL (0-1800); Potassium 4.3 mmol/L (3.5-5.1); SGOT/AST 38 U/L (14-36); SGPT/ALT 15 U/L (0-35); SODIUM 135 mmol/L (137-145); Total Protein 6.3 g/dL (6.3-8.2)
[2022-05-08 15:00] LABS: Absolute Neutrophil Ct (ANC) 6.56 x10^3/uL (1.4-6.9); Basophil (Absolute #) 0.03 x10^3/uL (0-0.4); Eosinophil % 0.8 % (0.00-5.0); Eosinophil (Absolute #) 0.07 x10^3/uL (0-0.5); Hemoglobin 9.9 g/dL (12.0-16.0); Lymphocyte (Absolute #) 0.98 x10^3/uL (1.0-4.6); Lymphocytes % 11.8 % (24.0-44.0); Mean Cell Volume 83.9 fL (78-100); Mean Corpuscular Hemoglobin 23.1 pg (26-32); Mean Corpuscular Hgb Concent. 27.5 g/dL (32-36); Monocyte (Absolute #) 0.65 x10^3/uL (0.0-1.3); Monocytes % 7.8 % (0.0-12.0); Neutrophil % 78.8 % (36.0-66.0); Platelet Count 161 x10^3/uL (150-450); Red Blood Count 4.29 x10^6/uL (4.1-5.4); Red Cell Distribution Width 18.2 % (11.5-14.0); White Blood Count 8.3 x10^3/uL (4.0-10.5)
[2022-05-08 15:08] LABS: INFLUENZA A NEGATIVE (NEGATIVE); INFLUENZA B NEGATIVE (NEGATIVE); RESPIRATORY SYNCTIAL VIRUS NEGATIVE (Negative); SARS-CoV-2 Xpert Express NEGATIVE (NEGATIVE)
--- NOTE | 2022-05-08 15:08 | ERPHSYRPT ---
- History of Present Illness Time Seen by Provider: 05/08/22 12:50 Source: patient Exam Limitations: no limitations Patient Subjective Stated Complaint: C/O SOB that increases with exertion or coughing that started this morning. Patient indicates that she has had 2 seperat e blood transfusions in the past few weeks related to SOB and low hgb but states that this SOB feels differently than when she needed blood. Denies any pain. Triage Nursing Assessment: Patient brought back to ED in a W/C. She was able to transfer self from chair to bed. Patient is talking in complete sentences with sats 93% on room air during conversation; breathing in non-labored at this time. She is alert and oriented. Skin is pale. Physician History: Patient is an 86-year-old white female with a chief complaint of shortness of breath. The situation started on 1121 when she had trouble with her legs and was seen by her harness builder Dr. Crockett who recommended she have Dopplers this was done. Later Dr. Michi Maciel was planning on doing stents in both legs however she had chest pain and shortness of breath and the EKG was done as well as a CBC and her hemoglobin was found to be 7.4 Dr. Edwards gave the patient a unit of blood. While everything else was put on hold. She was given 1 unit her chest pain and her shortness of breath improved. She did develop a transient sore throat and a cough approximately 2 weeks ago she is short of breath now again with cough. Especially she does have Timing/Duration: week(s) (4) Activities at Onset: none Severity of Dyspnea-Max: moderate Severity of Dyspnea-Current: moderate Modifying Factors: Improves With: activity, coughing Associated Symptoms: cough, weakness Allergies/Adverse Reactions: Penicillins Allergy (Intermediate, Verified 05/08/22 12:37) Rash sulfadiazine Allergy (Intermediate, Verified 05/08/22 12:37) Itching amlodipine [From Norvasc] Adverse Reaction (Intermediate, Verified 05/08/22 12:37) hydrocodone Adverse Reaction (Intermediate, Verified 05/08/22 12:37) Itching meperidine [From Demerol] Adverse Reaction (Intermediate, Verified 05/08/22 12:37) Nausea and Vomiting sulfamethoxazole [From Bactrim] Adverse Reaction (Intermediate, Verified 05/08/22 12:37) Itching tetracycline Adverse Reaction (Intermediate, Verified 05/08/22 12:37) Rash trimethoprim [From Bactrim] Adverse Reaction (Intermediate, Verified 05/08/22 12:37) Itching cefaclor Adverse Reaction (Verified 05/08/22 12:37) fenofibrate [From Tricor] Adverse Reaction (Verified 05/08/22 12:37) Home Medications: Cholecalciferol (Vitamin D3) [Vitamin D] 1,000 unit PO DAILY 07/23/18 [H istory] Ezetimibe 10 mg [Zetia 10 MG] 10 mg PO HS 07/23/18 [History] Nitroglycerin 0.4 mg Tablet [Nitrostat 0.4 MG Tablet] 0.4 mg SL UD 07/23/18 [History] PANTOPRAZOLE 40 mg Tablet [Protonix 40MG Tablet] 40 mg PO QA 07/23/18 [History] Pravastatin Sodium 40 mg PO 07/23/18 [History] Aspirin EC 81 mg [Ecotrin 81 mg] 81 mg PO DAILY 11/28/20 [History] C/Sourcherry/Celery/Grape Seed [Tart Mercedes Capsule] 1 each PO DAILY 11/28/20 [History] Carvedilol 3.125 mg [Coreg 3.125 MG] 12.5 mg PO BID 11/28/20 [History] Clopidogrel Bisulfate [PLAVIX 75 MG Tablet] 75 mg PO DAILY 11/28/20 [History] Levothyroxine Sodium [Levothyroxine] 50 mcg PO DAILY 11/28/20 [History] Mecobalamin [B12 Active] 1,000 mcg PO DAILY 11/28/20 [History] Isosorbide Mononitrate 60 mg [Imdur 60MG] 60 mg PO DAILY 04/14/22 [History] Hx Tetanus, Diphtheria Vaccination/Date Given: No Hx Influenza Vaccination/Date Given: Yes Hx Pneumococcal Vaccination/Date Given: Yes Travel Risk - International Travel Have you traveled outside of the country in past 3 weeks: No - Coronavirus Screening Are you exhibiting any of the following symptoms?: Yes Symptoms: Shortness of Breath Close contact with a COVID-19 positive Pt in past 14-21 Days: No - Vaccine Status Have you recieved a Covid-19 vaccination: Yes Founding Partner: Moderna - Vaccination Dates Date of 2cond Vaccination (if applicable): 2020 - Review of Systems Constitutional: Fatigue, Weakness, No Fever, No Chills Eyes: No Symptoms Ears, Nose, & Throat: No Symptoms Respiratory: Cough, Dyspnea, Dyspnea on Exertion (HANEY) Cardiac: Chest Pain, No Edema, No Syncope Abdominal/Gastrointestinal: No Abdominal Pain, No Nausea, No Vomiting, No Diarrhea Genitourinary Symptoms: No Dysuria Musculoskeletal: No Back Pain, No Neck Pain Skin: No Rash Neurological: No Dizziness, No Focal Weakness, No Sensory Changes Psychological: No Symptoms Endocrine: No Symptoms All Other Systems: Reviewed and Negative - Past Medical History Pertinent Past Medical History: Yes Neurological History: No Pertinent History ENT History: Glaucoma, Macular Degeneration Cardiac History: Arrhythmia, Coronary Artery Disease, High Cholesterol, Hypertension, Myocardial Infarction ([place]), Peripheral Vascular Disease Respiratory History: No Pertinent History, Other Endocrine Medical History: Hypothyroidism Musculoskeletal History: Arthritis GI Medical History: Diverticulitis, GERD, Gallbladder Disease, Hernia, Pancreatitis, Other History: Other Psycho-Social History: No Pertinent History Female Reproductive Disorders: Menstrual Problems, Other Other Medical History: basil cell, anemia, COVID in March 2022 - Past Surgical History Past Surgical History: Yes Neuro Surgical History: No Pertinent History Cardiac: CABG, Cardiac Catheterization, Cardiac Stent Respiratory: No Pertinent History Gastrointestinal: Cholecystectomy, Hernia Repair Genitourinary: No Pertinent History Musculoskeletal: Joint Replacement Female Surgical History: Hysterectomy Other Surgical History: bilat knees, left CEA. 2 stents in right leg and one in left leg. - Social History Smoking Status: Never smoker Exposure to second hand smoke: No Drug Use: none Patient Lives Alone: Yes - Nursing Vital Signs Nursing Vital Signs: Initial Vital Signs Temperature 98 F 05/08/22 12:39 Pulse Rate 77 05/08/22 12:39 Respiratory Rate 20 05/08/22 12:39 Blood Pressure 203/85 05/08/22 12:39 O2 Sat by Pulse Oximetry 93 L 05/08/22 12:39 Pain Scale Pain Intensity 0 - Physical Exam General Appearance: no apparent distress, alert Eye Exam: PERRL/EOMI Neck Exam: normal inspection, supple Respiratory Exam: diminished breath sounds, crackles/rales (Rales in both bases) Cardiovascular/Chest Exam: normal heart sounds, regular rate/rhythm Abdominal/Gastrointestinal Exam: soft, No tenderness, No distention, No mass Extremity Exam: non-tender, normal range of motion, normal inspection, no calf tenderness, no pedal edema Neurologic Exam: alert, oriented x 3, cooperative, 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 tested, sensation nml, No motor deficits Skin Exam: normal color, warm, No dry SpO2 Interpretation: normal SpO2: 95 O2 Delivery: Room Air - Course Nursing assessment & vital signs reviewed: Yes EKG Interpreted by Me: RATE (75), Sinus Rhythm, Right Bundle Branch Block, Other (Interventricular and interventricular conduction delay LVH and secondary repolarization abnormality) - Radiology Exams Chest X-ray Interpretation: Interpreted by me (Chest x-ray shows new bilateral mid to lower lung field interstitial alveolar opacities) Ordered Tests: Active Orders 24 hr Category Date Time Status EKG-ER Only STAT Care 05/08/22 13:21 Active IV Insertion STAT Care 05/08/22 13:19 Active CHEST 1 VIEW (PORTABLE) Stat Exams 05/08/22 13:20 Completed CBC W DIFF Stat Lab 05/08/22 14:05 Completed CMP Stat Lab 05/08/22 14:05 Completed D-DIMER QUANTITATIVE Stat Lab 05/08/22 15:15 Received FECAL OCCULT BLOOD - SCREENING Stat Lab 05/08/22 13:19 Ordered Lactic Acid Stat Lab 05/08/22 14:10 Completed NT PRO BNP Stat Lab 05/08/22 14:05 Completed PROCALCITONIN Stat Lab 05/08/22 14:05 Completed PROTIME WITH INR Stat Lab 05/08/22 15:15 Received PTT Stat Lab 05/08/22 15:15 Received TROPONIN Q4H Lab 05/08/22 17:30 Ordered TROPONIN Q4H Lab 05/08/22 21:30 Ordered TROPONIN Stat Lab 05/08/22 14:05 Completed UA W/RFX CULTURE Stat Lab 05/08/22 14:24 Completed Medication Summary Generic Name Dose Route Start Last Admin Trade Name Freq PRN Reason Stop Dose Admin Sodium Chloride 1,000 mls @ 50 mls/hr 05/08/22 13:30 05/08/22 14:34 Sodium Chloride 0.9% 1000 Ml IV 06/07/22 13:29 50 mls/hr .Q20H RAY Administration Lab/Rad Data: Laboratory Result Diagrams 05/08/22 14:05 05/08/22 14:05 Laboratory Results 05/08/22 05/08/22 05/08/22 Range/Units 14:24 14:10 14:05 WBC (4.0-10.5) x10^3/uL RBC (4.1-5.4) x10^6/uL Hgb (12.0-16.0) g/dL Hct (35-47) % MCV (78-100) fL MCH (26-32) pg MCHC (32-36) g/dL RDW (11.5-14.0) % Plt Count (150-450) x10^3/uL MPV (7.5-11.0) fL Gran % (36.0-66.0) % Immature Gran % (Auto) (0.00-0.4) % Nucleat RBC Rel Count (0.00-0.1) % Eos # (Auto) (0-0.5) x10^3/uL Immature Gran # (Auto) (0.00-0.03) x10^3u/L Absolute Lymphs (auto) (1.0-4.6) x10^3/uL Absolute Monos (auto) (0.0-1.3) x10^3/uL Absolute Nucleated RBC (0.00-0.01) x10^3u/L Lymphocytes % (24.0-44.0) % Monocytes % (0.0-12.0) % Eosinophils % (0.00-5.0) % Basophils % (0.0-0.4) % Absolute Granulocytes (1.4-6.9) x10^3/uL Basophils # (0-0.4) x10^3/uL Sodium (137-145) mmol/L Potassium (3.5-5.1) mmol/L Chloride (98-107) mmol/L Carbon Dioxide (22-30) mmol/L Anion Gap (5-15) MEQ/L BUN (7-17) mg/dL Creatinine (0.52-1.04) mg/dL Estimated GFR ML/MIN Glucose (74-106) mg/dL Lactic Acid 1.0 (0.4-2.0) Calcium (8.4-10.2) mg/dL Total Bilirubin (0.2-1.3) mg/dL AST (14-36) U/L ALT (0-35) U/L Alkaline Phosphatase (38-126) U/L Troponin I (0.000-0.034) ng/mL NT-Pro-B Natriuret Pep (0-1800) pg/mL Serum Total Protein (6.3-8.2) g/dL Albumin (3.5-5.0) g/dL Procalcitonin (0.030-0.080) ng/mL Urinalys Dipstick Clnc MAIN LAB Urine Color YELLOW (YELLOW) Urine Appearance CLEAR (CLEAR) Urine pH 6.0 (5-6) Ur Specific [place] 1.020 (1.005-1.025) POC Urine Protein Conf 30 A (Negative) Urine Ketones NEGATIVE (NEGATIVE) Urine Nitrite NEGATIVE (NEGATIVE) Urine Bilirubin NEGATIVE (NEGATIVE) Urine Urobilinogen 1 A (0-1) mg/dL Urine Leukocytes NEGATIVE (NEGATIVE) Urine WBC (Auto) 0-2 (0-5) /HPF Urine RBC (Auto) 0-2 (0-2) /HPF U Epithel Cells (Auto) RARE (FEW) /HPF Urine Bacteria (Auto) NONE (NEGATIVE) /HPF Urine RBC NEGATIVE (0-5) Hay[place]/ul Urine Mucus (Auto) SLIGHT A (NEGATIVE) /HPF Ur Culture Indicated? NO Urine Glucose NEGATIVE (NEGATIVE) mg/dL Influenza Type A Ag NEGATIVE (NEGATIVE) Influenza Type B Ag NEGATIVE (NEGATIVE) RSV (PCR) NEGATIVE (Negative) SARS-CoV-2 (PCR) NEGATIVE (NEGATIVE) ABO Group Rh Factor Antibody Screen (NEGATIVE) 05/08/22 05/08/22 05/08/22 Range/Units 14:05 14:05 14:05 WBC (4.0-10.5) x10^3/uL RBC (4.1-5.4) x10^6/uL Hgb (12.0-16.0) g/dL Hct (35-47) % MCV (78-100) fL MCH (26-32) pg MCHC (32-36) g/dL RDW (11.5-14.0) % Plt Count (150-450) x10^3/uL MPV (7.5-11.0) fL Gran % (36.0-66.0) % Immature Gran % (Auto) (0.00-0.4) % Nucleat RBC Rel Count (0.00-0.1) % Eos # (Auto) (0-0.5) x10^3/uL Immature Gran # (Auto) (0.00-0.03) x10^3u/L Absolute Lymphs (auto) (1.0-4.6) x10^3/uL Absolute Monos (auto) (0.0-1.3) x10^3/uL Absolute Nucleated RBC (0.00-0.01) x10^3u/L Lymphocytes % (24.0-44.0) % Monocytes % (0.0-12.0) % Eosinophils % (0.00-5.0) % Basophils % (0.0-0.4) % Absolute Granulocytes (1.4-6.9) x10^3/uL Basophils # (0-0.4) x10^3/uL Sodium 135 L (137-145) mmol/L Potassium 4.3 (3.5-5.1) mmol/L Chloride 104 (98-107) mmol/L Carbon Dioxide 22 (22-30) mmol/L Anion Gap 12.4 (5-15) MEQ/L BUN 14 (7-17) mg/dL Creatinine 0.49 L (0.52-1.04) mg/dL Estimated GFR > 60.0 ML/MIN Glucose 116 H (74-106) mg/dL Lactic Acid (0.4-2.0) Calcium 8.6 (8.4-10.2) mg/dL Total Bilirubin 1.30 (0.2-1.3) mg/dL AST 38 H (14-36) U/L ALT 15 (0-35) U/L Alkaline Phosphatase 111 (38-126) U/L Troponin I 0.224 H* (0.000-0.034) ng/mL NT-Pro-B Natriuret Pep 4290 H (0-1800) pg/mL Serum Total Protein 6.3 (6.3-8.2) g/dL Albumin 3.7 (3.5-5.0) g/dL Procalcitonin 0.083 H (0.030-0.080) ng/mL Urinalys Dipstick Clnc Urine Color (YELLOW) Urine Appearance (CLEAR) Urine pH (5-6) Ur Specific [place] (1.005-1.025) POC Urine Protein Conf (Negative) Urine Ketones (NEGATIVE) Urine Nitrite (NEGATIVE) Urine Bilirubin (NEGATIVE) Urine Urobilinogen (0-1) mg/dL Urine Leukocytes (NEGATIVE) Urine WBC (Auto) (0-5) /HPF Urine RBC (Auto) (0-2) /HPF U Epithel Cells (Auto) (FEW) /HPF Urine Bacteria (Auto) (NEGATIVE) /HPF Urine RBC (0-5) Hayden/ul Urine Mucus (Auto) (NEGATIVE) /HPF Ur Culture Indicated? Urine Glucose (NEGATIVE) mg/dL Influenza Type A Ag (NEGATIVE) Influenza Type B Ag (NEGATIVE) RSV (PCR) (Negative) SARS-CoV-2 (PCR) (NEGATIVE) ABO Group AB Rh Factor POSITIVE Antibody Screen NEGATIVE (NEGATIVE) 05/08/22 Range/Units 14:05 WBC 8.3 (4.0-10.5) x10^3/uL RBC 4.29 (4.1-5.4) x10^6/uL Hgb 9.9 L (12.0-16.0) g/dL Hct 36.0 (35-47) % MCV 83.9 (78-100) fL MCH 23.1 L (26-32) pg MCHC 27.5 L (32-36) g/dL RDW 18.2 H (11.5-14.0) % Plt Count 161 (150-450) x10^3/uL MPV 12.0 H (7.5-11.0) fL Gran % 78.8 H (36.0-66.0) % Immature Gran % (Auto) 0.4 (0.00-0.4) % Nucleat RBC Rel Count 0.0 (0.00-0.1) % Eos # (Auto) 0.07 (0-0.5) x10^3/uL Immature Gran # (Auto) 0.03 (0.00-0.03) x10^3u/L Absolute Lymphs (auto) 0.98 L (1.0-4.6) x10^3/uL Absolute Monos (auto) 0.65 (0.0-1.3) x10^3/uL Absolute Nucleated RBC 0.00 (0.00-0.01) x10^3u/L Lymphocytes % 11.8 L (24.0-44.0) % Monocytes % 7.8 (0.0-12.0) % Eosinophils % 0.8 (0.00-5.0) % Basophils % 0.4 (0.0-0.4) % Absolute Granulocytes 6.56 (1.4-6.9) x10^3/uL Basophils # 0.03 (0-0.4) x10^3/uL Sodium (137-145) mmol/L Potassium (3.5-5.1) mmol/L Chloride (98-107) mmol/L Carbon Dioxide (22-30) mmol/L Anion Gap (5-15) MEQ/L BUN (7-17) mg/dL Creatinine (0.52-1.04) mg/dL Estimated GFR ML/MIN Glucose (74-106) mg/dL Lactic Acid (0.4-2.0) Calcium (8.4-10.2) mg/dL Total Bilirubin (0.2-1.3) mg/dL AST (14-36) U/L ALT (0-35) U/L Alkaline Phosphatase (38-126) U/L Troponin I (0.000-0.034) ng/mL NT-Pro-B Natriuret Pep (0-1800) pg/mL Serum Total Protein (6.3-8.2) g/dL Albumin (3.5-5.0) g/dL Procalcitonin (0.030-0.080) ng/mL Urinalys Dipstick Clnc Urine Color (YELLOW) Urine Appearance (CLEAR) Urine pH (5-6) Ur Specific [place] (1.005-1.025) POC Urine Protein Conf (Negative) Urine Ketones (NEGATIVE) Urine Nitrite (NEGATIVE) Urine Bilirubin (NEGATIVE) Urine Urobilinogen (0-1) mg/dL Urine Leukocytes (NEGATIVE) Urine WBC (Auto) (0-5) /HPF Urine RBC (Auto) (0-2) /HPF U Epithel Cells (Auto) (FEW) /HPF Urine Bacteria (Auto) (NEGATIVE) /HPF Urine RBC (0-5) [place]/ul Urine Mucus (Auto) (NEGATIVE) /HPF Ur Culture Indicated? Urine Glucose (NEGATIVE) mg/dL Influenza Type A Ag (NEGATIVE) Influenza Type B Ag (NEGATIVE) RSV (PCR) (Negative) SARS-CoV-2 (PCR) (NEGATIVE) ABO Group Rh Factor Antibody Screen (NEGATIVE) - Progress Progress: unchanged Air Movement: good Blood Culture(s) Obtained: No Antibiotics given: No Discussed with : Moses Will see patient in: hospital (observation) - Departure Departure Disposition: Observation Clinical Impression: CHF (congestive heart failure), GI bleed Condition: Fair Critical Care Time: No Referrals: CARLEE PAYNE DO [Primary Care Provider] - Follow up/PCP as directed Instructions: Heart Failure
[2022-05-08 15:15] LABS: TROPONIN 0.224 ng/mL (0.000-0.034)
[2022-05-08 15:23] LABS: ABO TYPING AB; Antibody Screen NEGATIVE (NEGATIVE); RH TYPING POSITIVE
[2022-05-08 15:26] LABS: Appearance CLEAR (CLEAR); Bilirubin NEGATIVE (NEGATIVE); Glucose NEGATIVE (NEGATIVE); Ketones NEGATIVE (NEGATIVE)
[2022-05-08 15:27] LABS: Epithelial Cells RARE /HPF (FEW); Mucus SLIGHT /HPF (NEGATIVE); RBC 0-2 /HPF (0-2); RBC NEGATIVE Ery/ul (0-5); WBC 0-2 /HPF (0-5)
[2022-05-08 15:28] LABS: Dipstick done @ ? MAIN LAB; Nitrite NEGATIVE (NEGATIVE); Protein,Urine Dip 30 (Negative); Urine Cultured Indicated? NO; Urobilinogen 1 mg/dL (0-1)
[2022-05-08 16:12] LABS: INR 1.2 (0.8-3.0); PROTIME 12.5 SECONDS (9.4-12.5); PTT 26.2 SECONDS (25.1-36.5)
[2022-05-08 16:16] LABS: D-DIMER QUANTITATIVE 1.81 mg/L (0.0-0.50)
[2022-05-08 16:39] LABS: Slide Review 1 YES
[2022-05-08] MEDS: Lasix 40 MG/4 ML IV SCH (18:23)
[2022-05-08] MEDS: Carafate 1 GM PO SCH (21:21)
[2022-05-08] MEDS: Klor Con PO SCH (21:22)
[2022-05-08] MEDS ORDERED: Zetia 10 MG PO ONE (22:00)
[2022-05-08] MEDS ORDERED: NON-FORMULARY BULK ITEM OP ONE (22:00)
[2022-05-08] MEDS ORDERED: Zocor 10MG PO ONE (22:00)
[2022-05-08] MEDS ORDERED: Coreg 3.125 MG PO SCH ×2 (22:00→22:03)
[2022-05-08] MEDS ORDERED: PROTONIX 40 MG IV IV SCH (22:00)
[2022-05-08] MEDS ORDERED: COREG 12.5 MG ONE (23:05)
[2022-05-08] MEDS: COREG 12.5 MG PO SCH (23:05)
[2022-05-09] MEDS ORDERED: xanAX 0.25 MG PO PRN (05:19)
[2022-05-09] MEDS ORDERED: TYLENOL EXTRA STRENGTH 500 MG PO PRN (05:20)
[2022-05-09 05:28] LABS: Hematocrit 34.8 % (35-47); Hemoglobin 9.7 g/dL (12.0-16.0); Mean Cell Volume 82.7 fL (78-100); Mean Corpuscular Hgb Concent. 27.9 g/dL (32-36); Mean Platelet Volume 11.5 fL (7.5-11.0); Platelet Count 144 x10^3/uL (150-450); Red Blood Count 4.21 x10^6/uL (4.1-5.4); Red Cell Distribution Width 18.3 % (11.5-14.0); White Blood Count 5.4 x10^3/uL (4.0-10.5)
[2022-05-09] MEDS ORDERED: SYNTHROID 50 MCG PO ONE (06:00)
[2022-05-09 06:17] LABS: BLOOD UREA NITROGEN 12 mg/dL (7-17); CHLORIDE 101 mmol/L (98-107); Calcium 8.4 mg/dL (8.4-10.2); Carbon Dioxide 30 mmol/L (22-30); Creatinine 1 0.68 mg/dL (0.52-1.04); EST GLOMERULAR FILTRATION RATE > 60.0 ML/MIN; Glucose 103 mg/dL (74-106); NT PRO BNP 3880 pg/mL (0-1800); Potassium 3.4 mmol/L (3.5-5.1); SODIUM 138 mmol/L (137-145)
[2022-05-09] MEDS ORDERED: Nitrostat 0.4 MG Tablet SL PRN (07:15)
[2022-05-09] MEDS ORDERED: MEDICATION INTERVENTION MC SCH (07:15)
[2022-05-09] MEDS: Carafate 1 GM PO SCH ×4 (07:31→21:45)
[2022-05-09 08:10] LABS: Slide Review YES
--- NOTE | 2022-05-09 08:23 | PCM.HP ---
History of Present Illness - Chief Complaint Chief Complaint: CHF, GI BLEED History of Present Illness: is an 86 year old female patient of Dr Huston who was seen in clinic yesterday with c/o shortness of breath, bibasilar cracles,denied fever or chest pain or abdominal pain but has loss of appetite. Is S/P stent LAD JUL 2020 , CABG 1996 on Plavix and Aspirin. Has recurrent anemia requiring transfusion last month and SEPTEMBER 2020( no scope at that time due to could not come off of Plavix per Cardiology). Last scope was with Dr Alec Campbell 2018- no source of bleed was seen. On follow up post transfusion her stool was heme positive from collection 05/05/22 with hgb staying in the 9s. On exam patient was tender in the epigastrum and stated she has internal hemorrhoids with bright red blood per rectum recently. ER eval and phone consult with Dr Maciel,Vice Admiral covering for Dr Crockett agrees with ER treatment paln . Transfer bed at [facility] not available. Formal Cardiology and General surgery consult requested. Medications & Allergies Home Medications: Home Medication List Cholecalciferol (Vitamin D3) [Vitamin D] 2,000 unit PO DAILY 07/23/18 [History Confirmed 05/08/22] Ezetimibe 10 mg [Zetia 10 MG] 10 mg PO HS 07/23/18 [History Confirmed 05/08/22] Nitroglycerin 0.4 mg Tablet [Nitrostat 0.4 MG Tablet] 0.4 mg SL UD 07/23/18 [History Confirmed 05/08/22] PANTOPRAZOLE 40 mg Tablet [Protonix 40MG Tablet] 40 mg PO QAM 07/23/18 [History Confirmed 05/08/22] Aspirin EC 81 mg [Ecotrin 81 mg] 81 mg PO HS 11/28/20 [History Confirmed 05/08/22] C/Sourcherry/Celery/Grape Seed [Tart Mercedes Capsule] 1 each PO DAILY 11/28/20 [History Confirmed 05/08/22] Carvedilol 3.125 mg [Coreg 3.125 MG] 12.5 mg PO BID 11/28/20 [History Confirmed 05/08/22] Clopidogrel Bisulfate [PLAVIX 75 MG Tablet] 75 mg PO DAILY 11/28/20 [History Confirmed 05/08/22] Levothyroxine Sodium [Levothyroxine] 50 mcg PO 0600 11/28/20 [History Confirmed 05/08/22] Isosorbide Mononitrate 60 mg [Imdur 60MG] 60 mg PO DAILY 04/14/22 [History Confirmed 05/08/22] Brinzolamide/Brimonidine Tart [Simbrinza 1%-0.2% Eye Drop] 1 drop OP BID 05/08/22 [History Confirmed 05/08/22] Cyanocobalamin 500 Mcg [Vitamin B-12 500 MCG] 2,000 mcg PO DAILY 05/08/22 [History Confirmed 05/08/22] Loratadine 10 mg [Claritin 10 mg] 1 tab PO DAILY 05/08/22 [History Confirmed 05/08/22] Pravastatin Sodium 10 mg PO HS 05/08/22 [History Confirmed 05/08/22] Allergies/Adverse Reactions: Allergies Allergy/AdvReac Type Severity Reaction Status Date / Time Penicillins Allergy Intermediate Rash Verified 05/08/22 12:37 sulfadiazine Allergy Intermediate Itching Verified 05/08/22 12:37 amlodipine [From Norvasc] AdvReac Intermediate Verified 05/08/22 12:37 hydrocodone AdvReac Intermediate Itching Verified 05/08/22 12:37 meperidine [From Demerol] AdvReac Intermediate Nausea and Verified 05/08/22 12:37 Vomiting sulfamethoxazole AdvReac Intermediate Itching Verified 05/08/22 12:37 [From Bactrim] tetracycline AdvReac Intermediate Rash Verified 05/08/22 12:37 trimethoprim [From Bactrim] AdvReac Intermediate Itching Verified 05/08/22 12:37 cefaclor AdvReac Verified 05/08/22 12:37 fenofibrate [From Tricor] AdvReac Verified 05/08/22 12:37 - Past Medical History Past Medical History: Yes Neurological History: No Pertinent History ENT History: Glaucoma, Macular Degeneration Cardiac History: Arrhythmia, Coronary Artery Disease, High Cholesterol, Hypertension, Myocardial Infarction (NH), Peripheral Vascular Disease Respiratory History: Bronchitis, Other Endocrine Medical History: Hypothyroidism Musculoskelatal History: Arthritis GI Medical History: Diverticulitis, GERD, Gallbladder Disease, Hernia, Pancreatitis, Other History: Other Pyscho-Social History: No Pertinent History Reproductive Disorders: Menstrual Problems, Other Comment: basil cell, anemia, COVID in March 2022 - Past Surgical History Past Surgical History: Yes Neuro Surgical History: No Pertinent History Cardiac History: CABG, Cardiac Catheterization, Cardiac Stent Respiratory Surgery: No Pertinent History GI Surgical History: Cholecystectomy, Hernia Repair Genitourinary Surgical Hx: No Pertinent History Musculskeletal Surgical Hx: Joint Replacement Female Surgical History: Hysterectomy Other Surgical History: bilat knees, left CEA. 2 stents in right leg and one in left leg. - Social History Smoking Status: Never smoker Exposure to second hand smoke: No Alcohol: None Drug Use: none - Physical Exam Vital Signs: Vital Signs - 24 hr Temp Pulse Resp BP Pulse Ox 05/09/22 07:19 98.7 F 76 18 134/60 93 L 05/09/22 07:07 93 L 05/09/22 04:00 97.3 F 85 25 H 115/59 92 L 05/08/22 23:32 96.9 F 99 H 20 138/75 96 05/08/22 20:00 98.9 F 96 H 20 151/73 96 05/08/22 18:55 95 05/08/22 17:23 97.7 F 80 18 191/88 91 L 05/08/22 17:19 97.7 F 80 18 191/88 90 L 05/08/22 15:59 95 05/08/22 15:00 70 180/90 95 05/08/22 14:32 69 25 H 188/96 95 05/08/22 13:36 76 30 H 188/84 91 L 05/08/22 12:39 98 F 77 20 203/85 93 L Results - Labs Lab/Micro Results: Lab Results-Last 24 Hours 05/08/22 05/08/22 05/08/22 Range/Units 14:05 14:05 14:05 WBC 8.3 (4.0-10.5) x10^3/uL RBC 4.29 (4.1-5.4) x10^6/uL Hgb 9.9 L (12.0-16.0) g/dL Hct 36.0 (35-47) % MCV 83.9 (78-100) fL MCH 23.1 L (26-32) pg MCHC 27.5 L (32-36) g/dL RDW 18.2 H (11.5-14.0) % Plt Count 161 (150-450) x10^3/uL MPV 12.0 H (7.5-11.0) fL Gran % 78.8 H (36.0-66.0) % Immature Gran % (Auto) 0.4 (0.00-0.4) % Nucleat RBC Rel Count 0.0 (0.00-0.1) % Eos # (Auto) 0.07 (0-0.5) x10^3/uL Immature Gran # (Auto) 0.03 (0.00-0.03) x10^3u/L Absolute Lymphs (auto) 0.98 L (1.0-4.6) x10^3/uL Absolute Monos (auto) 0.65 (0.0-1.3) x10^3/uL Absolute Nucleated RBC 0.00 (0.00-0.01) x10^3u/L Lymphocytes % 11.8 L (24.0-44.0) % Monocytes % 7.8 (0.0-12.0) % Eosinophils % 0.8 (0.00-5.0) % Basophils % 0.4 (0.0-0.4) % Absolute Granulocytes 6.56 (1.4-6.9) x10^3/uL Basophils # 0.03 (0-0.4) x10^3/uL PT (9.4-12.5) SECONDS INR (0.8-3.0) APTT (25.1-36.5) SECONDS D-Dimer (0.0-0.50) mg/L Sodium 135 L (137-145) mmol/L Potassium 4.3 (3.5-5.1) mmol/L Chloride 104 (98-107) mmol/L Carbon Dioxide 22 (22-30) mmol/L Anion Gap 12.4 (5-15) MEQ/L BUN 14 (7-17) mg/dL Creatinine 0.49 L (0.52-1.04) mg/dL Estimated GFR > 60.0 ML/MIN Glucose 116 H (74-106) mg/dL Lactic Acid (0.4-2.0) Calcium 8.6 (8.4-10.2) mg/dL Total Bilirubin 1.30 (0.2-1.3) mg/dL AST 38 H (14-36) U/L ALT 15 (0-35) U/L Alkaline Phosphatase 111 (38-126) U/L Troponin I 0.224 H* (0.000-0.034) ng/mL NT-Pro-B Natriuret Pep 4290 H (0-1800) pg/mL Serum Total Protein 6.3 (6.3-8.2) g/dL Albumin 3.7 (3.5-5.0) g/dL Procalcitonin (0.030-0.080) ng/mL TSH 3rd Generation (0.47-4.68) mIU/L Urinalys Dipstick Clnc Urine Color (YELLOW) Urine Appearance (CLEAR) Urine pH (5-6) Ur Specific [place] (1.005-1.025) POC Urine Protein Conf (Negative) Urine Ketones (NEGATIVE) Urine Nitrite (NEGATIVE) Urine Bilirubin (NEGATIVE) Urine Urobilinogen (0-1) mg/dL Urine Leukocytes (NEGATIVE) Urine WBC (Auto) (0-5) /HPF Urine RBC (Auto) (0-2) /HPF U Epithel Cells (Auto) (FEW) /HPF Urine Bacteria (Auto) (NEGATIVE) /HPF Urine RBC (0-5) Hayden/ul Urine Mucus (Auto) (NEGATIVE) /HPF Ur Culture Indicated? Urine Glucose (NEGATIVE) mg/dL Influenza Type A Ag (NEGATIVE) Influenza Type B Ag (NEGATIVE) RSV (PCR) (Negative) SARS-CoV-2 (PCR) (NEGATIVE) Slides for Path Review YES ABO Group AB Rh Factor POSITIVE Antibody Screen NEGATIVE (NEGATIVE) 05/08/22 05/08/22 05/08/22 Range/Units 14:05 14:05 14:10 WBC (4.0-10.5) x10^3/uL RBC (4.1-5.4) x10^6/uL Hgb (12.0-16.0) g/dL Hct (35-47) % MCV (78-100) fL MCH (26-32) pg MCHC (32-36) g/dL RDW (11.5-14.0) % Plt Count (150-450) x10^3/uL MPV (7.5-11.0) fL Gran % (36.0-66.0) % Immature Gran % (Auto) (0.00-0.4) % Nucleat RBC Rel Count (0.00-0.1) % Eos # (Auto) (0-0.5) x10^3/uL Immature Gran # (Auto) (0.00-0.03) x10^3u/L Absolute Lymphs (auto) (1.0-4.6) x10^3/uL Absolute Monos (auto) (0.0-1.3) x10^3/uL Absolute Nucleated RBC (0.00-0.01) x10^3u/L Lymphocytes % (24.0-44.0) % Monocytes % (0.0-12.0) % Eosinophils % (0.00-5.0) % Basophils % (0.0-0.4) % Absolute Granulocytes (1.4-6.9) x10^3/uL Basophils # (0-0.4) x10^3/uL PT (9.4-12.5) SECONDS INR (0.8-3.0) APTT (25.1-36.5) SECONDS D-Dimer (0.0-0.50) mg/L Sodium (137-145) mmol/L Potassium (3.5-5.1) mmol/L Chloride (98-107) mmol/L Carbon Dioxide (22-30) mmol/L Anion Gap (5-15) MEQ/L BUN (7-17) mg/dL Creatinine (0.52-1.04) mg/dL Estimated GFR ML/MIN Glucose (74-106) mg/dL Lactic Acid 1.0 (0.4-2.0) Calcium (8.4-10.2) mg/dL Total Bilirubin (0.2-1.3) mg/dL AST (14-36) U/L ALT (0-35) U/L Alkaline Phosphatase (38-126) U/L Troponin I (0.000-0.034) ng/mL NT-Pro-B Natriuret Pep (0-1800) pg/mL Serum Total Protein (6.3-8.2) g/dL Albumin (3.5-5.0) g/dL Procalcitonin 0.083 H (0.030-0.080) ng/mL TSH 3rd Generation (0.47-4.68) mIU/L Urinalys Dipstick Clnc Urine Color (YELLOW) Urine Appearance (CLEAR) Urine pH (5-6) Ur Specific Lyer[place] (1.005-1.025) POC Urine Protein Conf (Negative) Urine Ketones (NEGATIVE) Urine Nitrite (NEGATIVE) Urine Bilirubin (NEGATIVE) Urine Urobilinogen (0-1) mg/dL Urine Leukocytes (NEGATIVE) Urine WBC (Auto) (0-5) /HPF Urine RBC (Auto) (0-2) /HPF U Epithel Cells (Auto) (FEW) /HPF Urine Bacteria (Auto) (NEGATIVE) /HPF Urine RBC (0-5) Hayden/ul Urine Mucus (Auto) (NEGATIVE) /HPF Ur Culture Indicated? Urine Glucose (NEGATIVE) mg/dL Influenza Type A Ag NEGATIVE (NEGATIVE) Influenza Type B Ag NEGATIVE (NEGATIVE) RSV (PCR) NEGATIVE (Negative) SARS-CoV-2 (PCR) NEGATIVE (NEGATIVE) Slides for Path Review ABO Group Rh Factor Antibody Screen (NEGATIVE) 05/08/22 05/08/22 05/08/22 Range/Units 14:24 15:15 17:50 WBC (4.0-10.5) x10^3/uL RBC (4.1-5.4) x10^6/uL Hgb (12.0-16.0) g/dL Hct (35-47) % MCV (78-100) fL MCH (26-32) pg MCHC (32-36) g/dL RDW (11.5-14.0) % Plt Count (150-450) x10^3/uL MPV (7.5-11.0) fL Gran % (36.0-66.0) % Immature Gran % (Auto) (0.00-0.4) % Nucleat RBC Rel Count (0.00-0.1) % Eos # (Auto) (0-0.5) x10^3/uL Immature Gran # (Auto) (0.00-0.03) x10^3u/L Absolute Lymphs (auto) (1.0-4.6) x10^3/uL Absolute Monos (auto) (0.0-1.3) x10^3/uL Absolute Nucleated RBC (0.00-0.01) x10^3u/L Lymphocytes % (24.0-44.0) % Monocytes % (0.0-12.0) % Eosinophils % (0.00-5.0) % Basophils % (0.0-0.4) % Absolute Granulocytes (1.4-6.9) x10^3/uL Basophils # (0-0.4) x10^3/uL PT 12.5 (9.4-12.5) SECONDS INR 1.20 (0.8-3.0) APTT 26.2 (25.1-36.5) SECONDS D-Dimer 1.81 H* (0.0-0.50) mg/L Sodium (137-145) mmol/L Potassium (3.5-5.1) mmol/L Chloride (98-107) mmol/L Carbon Dioxide (22-30) mmol/L Anion Gap (5-15) MEQ/L BUN (7-17) mg/dL Creatinine (0.52-1.04) mg/dL Estimated GFR ML/MIN Glucose (74-106) mg/dL Lactic Acid (0.4-2.0) Calcium (8.4-10.2) mg/dL Total Bilirubin (0.2-1.3) mg/dL AST (14-36) U/L ALT (0-35) U/L Alkaline Phosphatase (38-126) U/L Troponin I 0.239 H* (0.000-0.034) ng/mL NT-Pro-B Natriuret Pep (0-1800) pg/mL Serum Total Protein (6.3-8.2) g/dL Albumin (3.5-5.0) g/dL Procalcitonin (0.030-0.080) ng/mL TSH 3rd Generation (0.47-4.68) mIU/L Urinalys Dipstick Clnc MAIN LAB Urine Color YELLOW (YELLOW) Urine Appearance CLEAR (CLEAR) Urine pH 6.0 (5-6) Ur Specific Lyer[place] 1.020 (1.005-1.025) POC Urine Protein Conf 30 A (Negative) Urine Ketones NEGATIVE (NEGATIVE) Urine Nitrite NEGATIVE (NEGATIVE) Urine Bilirubin NEGATIVE (NEGATIVE) Urine Urobilinogen 1 A (0-1) mg/dL Urine Leukocytes NEGATIVE (NEGATIVE) Urine WBC (Auto) 0-2 (0-5) /HPF Urine RBC (Auto) 0-2 (0-2) /HPF U Epithel Cells (Auto) RARE (FEW) /HPF Urine Bacteria (Auto) NONE (NEGATIVE) /HPF Urine RBC NEGATIVE (0-5) Hayden/ul Urine Mucus (Auto) SLIGHT A (NEGATIVE) /HPF Ur Culture Indicated? NO Urine Glucose NEGATIVE (NEGATIVE) mg/dL Influenza Type A Ag (NEGATIVE) Influenza Type B Ag (NEGATIVE) RSV (PCR) (Negative) SARS-CoV-2 (PCR) (NEGATIVE) Slides for Path Review ABO Group Rh Factor Antibody Screen (NEGATIVE) 05/08/22 05/09/22 05/09/22 Range/Units 21:42 04:50 04:50 WBC 5.4 (4.0-10.5) x10^3/uL RBC 4.21 (4.1-5.4) x10^6/uL Hgb 9.7 L (12.0-16.0) g/dL Hct 34.8 L (35-47) % MCV 82.7 (78-100) fL MCH 23.0 L (26-32) pg MCHC 27.9 L (32-36) g/dL RDW 18.3 H (11.5-14.0) % Plt Count 144 L (150-450) x10^3/uL MPV 11.5 H (7.5-11.0) fL Gran % (36.0-66.0) % Immature Gran % (Auto) (0.00-0.4) % Nucleat RBC Rel Count (0.00-0.1) % Eos # (Auto) (0-0.5) x10^3/uL Immature Gran # (Auto) (0.00-0.03) x10^3u/L Absolute Lymphs (auto) (1.0-4.6) x10^3/uL Absolute Monos (auto) (0.0-1.3) x10^3/uL Absolute Nucleated RBC (0.00-0.01) x10^3u/L Lymphocytes % (24.0-44.0) % Monocytes % (0.0-12.0) % Eosinophils % (0.00-5.0) % Basophils % (0.0-0.4) % Absolute Granulocytes (1.4-6.9) x10^3/uL Basophils # (0-0.4) x10^3/uL PT (9.4-12.5) SECONDS INR (0.8-3.0) APTT (25.1-36.5) SECONDS D-Dimer (0.0-0.50) mg/L Sodium 138 (137-145) mmol/L Potassium 3.4 L D (3.5-5.1) mmol/L Chloride 101 (98-107) mmol/L Carbon Dioxide 30 (22-30) mmol/L Anion Gap 10.0 (5-15) MEQ/L BUN 12 (7-17) mg/dL Creatinine 0.68 (0.52-1.04) mg/dL Estimated GFR > 60.0 ML/MIN Glucose 103 (74-106) mg/dL Lactic Acid (0.4-2.0) Calcium 8.4 (8.4-10.2) mg/dL Total Bilirubin (0.2-1.3) mg/dL AST (14-36) U/L ALT (0-35) U/L Alkaline Phosphatase (38-126) U/L Troponin I 0.262 H* (0.000-0.034) ng/mL NT-Pro-B Natriuret Pep 3880 H (0-1800) pg/mL Serum Total Protein (6.3-8.2) g/dL Albumin (3.5-5.0) g/dL Procalcitonin (0.030-0.080) ng/mL TSH 3rd Generation (0.47-4.68) mIU/L Urinalys Dipstick Clnc Urine Color (YELLOW) Urine Appearance (CLEAR) Urine pH (5-6) Ur Specific [place] (1.005-1.025) POC Urine Protein Conf (Negative) Urine Ketones (NEGATIVE) Urine Nitrite (NEGATIVE) Urine Bilirubin (NEGATIVE) Urine Urobilinogen (0-1) mg/dL Urine Leukocytes (NEGATIVE) Urine WBC (Auto) (0-5) /HPF Urine RBC (Auto) (0-2) /HPF U Epithel Cells (Auto) (FEW) /HPF Urine Bacteria (Auto) (NEGATIVE) /HPF Urine RBC (0-5) Hayden/ul Urine Mucus (Auto) (NEGATIVE) /HPF Ur Culture Indicated? Urine Glucose (NEGATIVE) mg/dL Influenza Type A Ag (NEGATIVE) Influenza Type B Ag (NEGATIVE) RSV (PCR) (Negative) SARS-CoV-2 (PCR) (NEGATIVE) Slides for Path Review ABO Group Rh Factor Antibody Screen (NEGATIVE) 05/09/22 05/09/22 Range/Units 04:50 04:50 WBC (4.0-10.5) x10^3/uL RBC (4.1-5.4) x10^6/uL Hgb (12.0-16.0) g/dL Hct (35-47) % MCV (78-100) fL MCH (26-32) pg MCHC (32-36) g/dL RDW (11.5-14.0) % Plt Count (150-450) x10^3/uL MPV (7.5-11.0) fL Gran % (36.0-66.0) % Immature Gran % (Auto) (0.00-0.4) % Nucleat RBC Rel Count (0.00-0.1) % Eos # (Auto) (0-0.5) x10^3/uL Immature Gran # (Auto) (0.00-0.03) x10^3u/L Absolute Lymphs (auto) (1.0-4.6) x10^3/uL Absolute Monos (auto) (0.0-1.3) x10^3/uL Absolute Nucleated RBC (0.00-0.01) x10^3u/L Lymphocytes % (24.0-44.0) % Monocytes % (0.0-12.0) % Eosinophils % (0.00-5.0) % Basophils % (0.0-0.4) % Absolute Granulocytes (1.4-6.9) x10^3/uL Basophils # (0-0.4) x10^3/uL PT (9.4-12.5) SECONDS INR (0.8-3.0) APTT (25.1-36.5) SECONDS D-Dimer (0.0-0.50) mg/L Sodium (137-145) mmol/L Potassium (3.5-5.1) mmol/L Chloride (98-107) mmol/L Carbon Dioxide (22-30) mmol/L Anion Gap (5-15) MEQ/L BUN (7-17) mg/dL Creatinine (0.52-1.04) mg/dL Estimated GFR ML/MIN Glucose (74-106) mg/dL Lactic Acid (0.4-2.0) Calcium (8.4-10.2) mg/dL Total Bilirubin (0.2-1.3) mg/dL AST (14-36) U/L ALT (0-35) U/L Alkaline Phosphatase (38-126) U/L Troponin I 0.261 H* (0.000-0.034) ng/mL NT-Pro-B Natriuret Pep (0-1800) pg/mL Serum Total Protein (6.3-8.2) g/dL Albumin (3.5-5.0) g/dL Procalcitonin (0.030-0.080) ng/mL TSH 3rd Generation 1.800 (0.47-4.68) mIU/L Urinalys Dipstick Clnc Urine Color (YELLOW) Urine Appearance (CLEAR) Urine pH (5-6) Ur Specific [place] (1.005-1.025) POC Urine Protein Conf (Negative) Urine Ketones (NEGATIVE) Urine Nitrite (NEGATIVE) Urine Bilirubin (NEGATIVE) Urine Urobilinogen (0-1) mg/dL Urine Leukocytes (NEGATIVE) Urine WBC (Auto) (0-5) /HPF Urine RBC (Auto) (0-2) /HPF U Epithel Cells (Auto) (FEW) /HPF Urine Bacteria (Auto) (NEGATIVE) /HPF Urine RBC (0-5) Hayden/ul Urine Mucus (Auto) (NEGATIVE) /HPF Ur Culture Indicated? Urine Glucose (NEGATIVE) mg/dL Influenza Type A Ag (NEGATIVE) Influenza Type B Ag (NEGATIVE) RSV (PCR) (Negative) SARS-CoV-2 (PCR) (NEGATIVE) Slides for Path Review ABO Group Rh Factor Antibody Screen (NEGATIVE) - Radiology Impressions Radiology Exams & Impressions: Radiology Procedures Category Date Time Status CHEST 1 VIEW (PORTABLE) Stat Exams 05/08/22 13:20 Completed CHEST WITH CONTRAST [CT] Stat Exams 05/08/22 17:16 Taken - Other Procedures and Tests Respiratory Therapy 05/08/22 16:00 Oxygen NASAL CANNULA 2 lpm
--- NOTE | 2022-05-09 08:48 | XRAY ---
Indication: Cough and short of breath. Elevated d-dimer. Multiple contiguous axial images obtained through the chest using 80 cc Isovue 370 contrast and PE protocol. Comparison: None Good opacification of the pulmonary arteries to include the lobar and segmental branches. No pulmonary embolus. Heart is enlarged with scattered coronary calcifications. Aorta is mildly atherosclerotic without aneurysm/dissection. No pathologic mediastinal/hilar lymphadenopathy. Small hiatal hernia. Lungs demonstrates mild interstitial edema, small bilateral pleural effusions, and minimal bibasilar compressive atelectasis. Bony thorax intact with osteopenia and mild degenerative changes throughout the spine. Limited upper abdomen demonstrates cirrhotic liver with tiny perihepatic ascites. Impression: 1. Negative pulmonary embolus. 2. Cardiomegaly, interstitial edema, and bilateral pleural effusions favoring cardiac decompensation/CHF. 3. Chronic findings including small hiatal hernia, chronic bony findings, and cirrhosis with tiny perihepatic ascites.
[2022-05-09] MEDS: ENOXAPARIN SODIUM SQ SCH (09:11)
[2022-05-09] MEDS: VITAMIN D PO SCH (09:11)
[2022-05-09] MEDS: Imdur 60MG PO SCH (09:12)
[2022-05-09] MEDS: Zestril 5 MG PO SCH (09:12)
[2022-05-09] MEDS: Vitamin B-12 500 MCG PO SCH (09:12)
[2022-05-09] MEDS: COREG 12.5 MG PO SCH ×2 (09:12→21:45)
[2022-05-09] MEDS: Klor Con PO SCH ×2 (09:12→21:45)
[2022-05-09] MEDS: CLARITIN 10 MG PO SCH (09:12)
[2022-05-09] MEDS: PATIENT OWN MEDICATION OP SCH ×2 (09:13→21:45)
[2022-05-09] MEDS: PROTONIX 40 MG IV IV SCH (09:13)
[2022-05-09] MEDS: Lasix 40 MG/4 ML IV SCH ×2 (09:13→16:42)
[2022-05-09] MEDS ORDERED: [UNRECOGNIZED DRUG - OTHER] PO SCH (10:00)
[2022-05-09] MEDS ORDERED: Zestril 5 MG PO SCH (10:00)
[2022-05-09] MEDS ORDERED: BRIMONIDINE TART OP SCH (10:00)
[2022-05-09] MEDS ORDERED: BRINZOLAMIDE OP SCH (10:00)
[2022-05-09] MEDS ORDERED: [UNRECOGNIZED DRUG - OTHER] OP SCH (10:00)
[2022-05-09] MEDS ORDERED: Klor Con PO ONE (12:37)
[2022-05-09] MEDS ORDERED: Golytely Solution 4000 ML PO ONE (14:00)
[2022-05-09] MEDS: JARDIANCE PO SCH (18:18)
[2022-05-09] MEDS: Zetia 10 MG PO SCH (21:45)
[2022-05-09] MEDS: Zocor 10MG PO SCH (21:45)
[2022-05-09] MEDS ORDERED: NON-FORMULARY ITEM (Pravastatin Sodium [Pravastatin Sodium] 10 MG Tablet) PO SCH (22:00)
[2022-05-10] MEDS: SYNTHROID 50 MCG PO SCH (05:30)
[2022-05-10] MEDS ORDERED: LEVOTHYROXINE SODIUM 50 MCG PO SCH (06:00)
[2022-05-10 06:40] LABS: Hematocrit 36.7 % (35-47); Hemoglobin 10.2 g/dL (12.0-16.0); Mean Cell Volume 83.2 fL (78-100); Mean Corpuscular Hemoglobin 23.1 pg (26-32); Mean Corpuscular Hgb Concent. 27.8 g/dL (32-36); Mean Platelet Volume 11.2 fL (7.5-11.0); Platelet Count 143 x10^3/uL (150-450); Red Blood Count 4.41 x10^6/uL (4.1-5.4); Red Cell Distribution Width 18.3 % (11.5-14.0); White Blood Count 5.2 x10^3/uL (4.0-10.5)
[2022-05-10 07:14] LABS: ALBUMIN 3.7 g/dL (3.5-5.0); ALKALINE PHOSPHATASE 112 U/L (38-126); ANION GAP 8.7 MEQ/L (5-15); BLOOD UREA NITROGEN 17 mg/dL (7-17); CHLORIDE 98 mmol/L (98-107); Calcium 8.5 mg/dL (8.4-10.2); Carbon Dioxide 32 mmol/L (22-30); EST GLOMERULAR FILTRATION RATE > 60.0 ML/MIN; Glucose 107 mg/dL (74-106); Potassium 3.5 mmol/L (3.5-5.1); SGOT/AST 28 U/L (14-36); SGPT/ALT 15 U/L (0-35); SODIUM 136 mmol/L (137-145); Total Protein 6.5 g/dL (6.3-8.2)
[2022-05-10] MEDS: Carafate 1 GM PO SCH ×4 (08:02→21:21)
[2022-05-10] MEDS: COREG 12.5 MG PO SCH ×2 (09:55→21:21)
[2022-05-10] MEDS: CLARITIN 10 MG PO SCH (09:55)
[2022-05-10] MEDS: Imdur 60MG PO SCH (09:55)
[2022-05-10] MEDS: ENOXAPARIN SODIUM SQ SCH (09:55)
--- NOTE | 2022-05-10 09:55 | PCM.NOTE ---
Date and Time: 05/10/2252 Subjective Assessment: still very short of breath, lethargic - Review of Systems Constitutional: Lethargy, No Fever, No Chills Eyes: No Symptoms Ears, Nose, & Throat: No Symptoms Respiratory: Short Of Breath, No Cough Cardiac: No Chest Pain, No Edema, No Syncope Abdominal/Gastrointestinal: No Abdominal Pain, No Nausea, No Vomiting, No Diarrhea Genitourinary Symptoms: No Dysuria Musculoskeletal: No Back Pain, No Neck Pain Skin: No Rash Neurological: No Dizziness, No Focal Weakness, No Sensory Changes Psychological: No Symptoms Endocrine: No Symptoms Hematologic/Lymphatic: No Symptoms Immunological/Allergic: No Symptoms Objective Exam General Appearance: no apparent distress, alert Neurologic Exam: alert, oriented x 3, cooperative, normal mood/affect, nml cerebellar function, sensation nml, No motor deficits Skin Exam: normal color, warm, dry Eye Exam: PERRL, EOMI, eyes nml inspection Ears, Nose, Throat Exam: normal ENT inspection, pharynx normal, moist mucous membranes Neck Exam: normal inspection, non-tender, supple, full range of motion Respiratory Exam: crackles/rales, rhonchi, wheezing, No respiratory distress Cardiovascular Exam: regular rate/rhythm, normal heart sounds Gastrointestinal/Abdomen Exam: soft, No tenderness, No mass Extremity Exam: normal inspection, normal range of motion Back Exam: normal inspection, normal range of motion, No CVA tenderness, No vertebral tenderness Pelvic Exam: deferred Rectal Exam: deferred OBJECTIVE DATA Vital Signs: Vital Signs - 24 hr Temp Pulse Resp BP Pulse Ox 05/10/22 07:53 92 L 05/10/22 07:22 97.1 F 75 16 110/56 98 05/10/22 04:00 97.3 F 105 H 21 103/55 93 L 05/10/22 00:00 98.1 F 76 18 128/57 92 L 05/09/22 20:00 97.5 F 75 19 117/69 95 05/09/22 15:42 97.1 F 73 22 112/65 94 L 05/09/22 10:56 97.7 F 77 19 88/53 91 L Pain Assessment - Last Documented Pain Intensity 0 Intake and Output: Intake & Output 05/07/22 05/08/22 05/09/22 05/10/22 11:59 11:59 11:59 11:59 Intake Total 800 1580 Output Total 3300 1000 Balance -2500 580 Weight 73.5 kg 73.4 kg Lab Results: Lab Results-Last 24 Hours 05/09/22 05/09/22 05/10/22 Range/Units 04:50 13:18 06:00 WBC (4.0-10.5) x10^3/uL RBC (4.1-5.4) x10^6/uL Hgb (12.0-16.0) g/dL Hct (35-47) % MCV (78-100) fL MCH (26-32) pg MCHC (32-36) g/dL RDW (11.5-14.0) % Plt Count (150-450) x10^3/uL MPV (7.5-11.0) fL Sodium (137-145) mmol/L Potassium (3.5-5.1) mmol/L Chloride (98-107) mmol/L Carbon Dioxide (22-30) mmol/L Anion Gap (5-15) MEQ/L BUN (7-17) mg/dL Creatinine (0.52-1.04) mg/dL Estimated GFR ML/MIN Glucose (74-106) mg/dL Calcium (8.4-10.2) mg/dL Magnesium 2.0 (1.6-2.3) mg/dL Total Bilirubin (0.2-1.3) mg/dL AST (14-36) U/L ALT (0-35) U/L Alkaline Phosphatase (38-126) U/L Troponin I 0.189 H* (0.000-0.034) ng/mL Serum Total Protein (6.3-8.2) g/dL Albumin (3.5-5.0) g/dL Stool Occult Blood POSITIVE A (NEGATIVE) 05/10/22 05/10/22 Range/Units 06:00 06:00 WBC 5.2 (4.0-10.5) x10^3/uL RBC 4.41 (4.1-5.4) x10^6/uL Hgb 10.2 L (12.0-16.0) g/dL Hct 36.7 (35-47) % MCV 83.2 (78-100) fL MCH 23.1 L (26-32) pg MCHC 27.8 L (32-36) g/dL RDW 18.3 H (11.5-14.0) % Plt Count 143 L (150-450) x10^3/uL MPV 11.2 H (7.5-11.0) fL Sodium 136 L (137-145) mmol/L Potassium 3.5 (3.5-5.1) mmol/L Chloride 98 (98-107) mmol/L Carbon Dioxide 32 H (22-30) mmol/L Anion Gap 8.7 (5-15) MEQ/L BUN 17 (7-17) mg/dL Creatinine 0.80 (0.52-1.04) mg/dL Estimated GFR > 60.0 ML/MIN Glucose 107 H (74-106) mg/dL Calcium 8.5 (8.4-10.2) mg/dL Magnesium (1.6-2.3) mg/dL Total Bilirubin 1.00 (0.2-1.3) mg/dL AST 28 (14-36) U/L ALT 15 (0-35) U/L Alkaline Phosphatase 112 (38-126) U/L Troponin I (0.000-0.034) ng/mL Serum Total Protein 6.5 (6.3-8.2) g/dL Albumin 3.7 (3.5-5.0) g/dL Stool Occult Blood (NEGATIVE) Radiology Exams: Radiology Procedures Category Date Time Status CHEST 1 VIEW (PORTABLE) Stat Exams 05/08/22 13:20 Completed CHEST WITH CONTRAST [CT] Stat Exams 05/08/22 17:16 Completed Assessment/Plan (1) Elevated troponin Current Visit: Yes Status: Acute Assessment & Plan: Chief Complaint Diagnosis CHF, GI BLEED Allergies Allergy/AdvReac Type Severity Reaction Status Date / Time Penicillins Allergy Intermediate Rash Verified 05/08/22 12:37 sulfadiazine Allergy Intermediate Itching Verified 05/08/22 12:37 amlodipine [From Norvasc] AdvReac Intermediate Verified 05/08/22 12:37 hydrocodone AdvReac Intermediate Itching Verified 05/08/22 12:37 meperidine [From Demerol] AdvReac Intermediate Nausea and Verified 05/08/22 12:37 Vomiting sulfamethoxazole AdvReac Intermediate Itching Verified 05/08/22 12:37 [From Bactrim] tetracycline AdvReac Intermediate Rash Verified 05/08/22 12:37 trimethoprim [From Bactrim] AdvReac Intermediate Itching Verified 05/08/22 12:37 cefaclor AdvReac Verified 05/08/22 12:37 fenofibrate [From Tricor] AdvReac Verified 05/08/22 12:37 Vital Signs (Last 24 hours) Temp Pulse Resp BP Pulse Ox 05/10/22 07:53 92 L 05/10/22 07:22 97.1 F 75 16 110/56 98 05/10/22 04:00 97.3 F 105 H 21 103/55 93 L 05/10/22 00:00 98.1 F 76 18 128/57 92 L 05/09/22 20:00 97.5 F 75 19 117/69 95 05/09/22 15:42 97.1 F 73 22 112/65 94 L 05/09/22 10:56 97.7 F 77 19 88/53 91 L Home Medications Medication Instructions Recorded Confirmed Last Taken Type Brinzolamide/Brimonidine Tart 1 drop OP BID 05/08/22 05/08/22 05/08/22 History [Simbrinza 1%-0.2% Eye Drop] Cyanocobalamin 500 Mcg [Vitamin 2,000 mcg PO DAILY 05/08/22 05/08/22 05/08/22 History B-12 500 MCG] Loratadine 10 mg [Claritin 10 1 tab PO DAILY 05/08/22 05/08/22 05/08/22 History mg] Pravastatin Sodium 10 mg PO HS 05/08/22 05/08/22 05/07/22 History Current Medications Generic Name Dose Route Start Last Admin Trade Name Freq PRN Reason Stop Dose Admin Acetaminophen 500 mg 05/09/22 05:20 Acetaminophen 500 Mg Tablet PO 06/08/22 05:19 Q4H PRN PRN PAIN Alprazolam 0.25 mg 05/09/22 05:19 Alprazolam 0.25 Mg Tablet PO 06/08/22 05:18 BID PRN PRN ANXIETY Carvedilol 12.5 mg 05/08/22 22:00 05/09/22 21:45 Carvedilol 12.5 Mg Tablet PO 06/07/22 21:59 12.5 mg BID RAY Administration Cholecalciferol 2,000 unit 05/09/22 10:00 05/09/22 09:11 Cholecalciferol (Vitamin D3) 1000 Unit Tablet PO 06/08/22 09:59 2,000 unit DAILY RAY Administration Cyanocobalamin 2,000 mcg 05/09/22 10:00 05/09/22 09:12 Cyanocobalamin 500 Mcg Tablet PO 06/08/22 09:59 2,000 mcg DAILY RAY Administration Ezetimibe 10 mg 05/09/22 22:00 05/09/22 21:45 Ezetimibe 10 Mg Tab PO 06/08/22 21:59 10 mg HS RAY Administration Empagliflozin 10 mg 05/09/22 18:00 05/09/22 18:18 Empagliflozin 10 Mg Tablet PO 06/08/22 17:59 10 mg DAILY RAY Administration Enoxaparin Sodium 40 mg 05/09/22 10:00 05/09/22 09:11 Enoxaparin Sodium 40 Mg/0.4 Ml Syringe SQ 06/08/22 09:59 40 mg DAILY RAY Administration Furosemide 40 mg 05/08/22 17:00 05/09/22 16:42 Furosemide 40 Mg/4 Ml Vial IV 06/07/22 16:59 40 mg BID DIURETIC RAY Administration Isosorbide Mononitrate 60 mg 05/09/22 10:00 05/09/22 09:12 Isosorbide Mononitrate 60 Mg Tab PO 06/08/22 09:59 60 mg DAILY RAY Administration Levothyroxine Sodium 50 mcg 05/10/22 06:00 05/10/22 05:30 Levothyroxine Sodium 50 Mcg Tablet PO 06/09/22 05:59 50 mcg 0600 RAY Administration Lisinopril 5 mg 05/09/22 10:00 05/09/22 09:12 Lisinopril 5 Mg Tablet PO 06/08/22 09:59 5 mg DAILY RAY Administration Loratadine 10 mg 05/09/22 10:00 05/09/22 09:12 Loratadine 10 Mg Tablet PO 06/08/22 09:59 10 mg DAILY RAY Administration Miscellaneous Information 1 each 05/09/22 07:15 Medication Intervention 1 Each Each 06/08/22 07:14 .RN TO CHECK RAY Nitroglycerin 0.4 mg 05/09/22 07:15 Nitroglycerin 0.4 Mg Tablet Bottle SL 06/08/22 07:14 UD PRN Pantoprazole Sodium 40 mg 05/09/22 10:00 05/09/22 09:13 Pantoprazole 40 Mg Vial IV 06/07/22 21:59 40 mg Q24H10 RAY Administration Simbrinza Eye Drops 1 each 05/09/22 10:00 05/09/22 21:45 OP 06/08/22 09:59 1 each BID RAY Administration Potassium Chloride 20 meq 05/09/22 22:00 05/09/22 21:45 Potassium Chloride Tab 10 Meq Tab PO 06/08/22 21:59 20 meq BID RAY Administration Simvastatin 10 mg 05/09/22 22:00 05/09/22 21:45 Simvastatin 10 Mg Tablet PO 06/08/22 21:59 10 mg HS RAY Administration Sucralfate 1 g 05/08/22 22:00 05/10/22 08:02 Sucralfate 1 G Tablet PO 06/07/22 21:59 1 g ACHS RAY Administration Discontinued Medications Generic Name Dose Route Start Last Admin Trade Name Freq PRN Reason Stop Dose Admin Carvedilol 7.81 mg 05/08/22 22:00 05/08/22 23:10 Carvedilol 3.125 Mg Tablet PO 06/07/22 21:59 Not Given BID RAY Carvedilol 12.5 mg 05/08/22 22:03 Carvedilol 3.125 Mg Tablet PO 06/07/22 21:59 BID RAY Carvedilol Confirm 05/08/22 23:05 Carvedilol 12.5 Mg Tablet Administered 05/08/22 23:06 Dose 12.5 mg .ROUTE .STK-MED ONE Ezetimibe 10 mg 05/08/22 22:00 05/08/22 23:03 Ezetimibe 10 Mg Tab PO 05/08/22 22:01 10 mg ONCE ONE Administration Sodium Chloride 1,000 mls @ 50 mls/hr 05/08/22 13:30 05/08/22 14:34 Sodium Chloride 0.9% 1000 Ml IV 06/07/22 13:29 50 mls/hr .Q20H RAY Administration Sodium Chloride Confirm 05/08/22 14:34 Sodium Chloride 0.9% 1000 Ml Administered 05/08/22 14:35 Dose 1,000 mls @ .ROUTE .STK-MED ONE Levothyroxine Sodium 50 mcg 05/09/22 06:00 05/09/22 06:13 Levothyroxine Sodium 50 Mcg Tablet PO 05/09/22 06:01 50 mcg ONCE ONE Administration Lisinopril 2.5 mg 05/09/22 10:00 Lisinopril 5 Mg Tablet PO 06/08/22 09:59 DAILY RAY Non-Formulary Medication 1 each 05/08/22 22:00 05/08/22 23:09 Non-Formulary Drug 1 Each Each OP 05/08/22 22:01 1 each ONCE ONE Administration Pantoprazole Sodium 40 mg 05/08/22 22:00 05/08/22 21:21 Pantoprazole 40 Mg Vial IV 06/07/22 21:59 40 mg Q24H RAY Administration Polyethylene Glycol/Electrolytes 4,000 ml 05/09/22 14:00 Sod Sulf/Sod/Nahco3/Kcl/Peg's 4000 Ml Bottle PO 05/09/22 14:01 ONCE@1400 ONE Potassium Chloride 10 meq 05/08/22 22:00 05/09/22 09:12 Potassium Chloride Tab 10 Meq Tab PO 06/07/22 21:59 10 meq BID RAY Administration Potassium Chloride 10 meq 05/09/22 12:37 05/09/22 13:13 Potassium Chloride Tab 10 Meq Tab PO 05/09/22 12:38 10 meq STAT ONE Administration Simvastatin 10 mg 05/08/22 22:00 05/08/22 23:03 Simvastatin 10 Mg Tablet PO 05/08/22 22:01 10 mg ONCE ONE Administration Intake & Output (Last 24 hours) 05/07/22 05/08/22 05/09/22 05/10/22 11:59 11:59 11:59 11:59 Intake Total 800 1580 Output Total 3300 1000 Balance -2500 580 Weight 73.5 kg 73.4 kg Laboratory Results (Last 24 hours) 05/10/22 05/10/22 05/10/22 06:00 06:00 06:00 WBC 5.2 RBC 4.41 Hgb 10.2 L Hct 36.7 MCV 83.2 MCH 23.1 L MCHC 27.8 L RDW 18.3 H Plt Count 143 L MPV 11.2 H Sodium 136 L Potassium 3.5 Chloride 98 Carbon Dioxide 32 H Anion Gap 8.7 BUN 17 Creatinine 0.80 Estimated GFR > 60.0 Glucose 107 H Calcium 8.5 Magnesium Total Bilirubin 1.00 AST 28 ALT 15 Alkaline Phosphatase 112 Troponin I 0.189 H* Serum Total Protein 6.5 Albumin 3.7 Stool Occult Blood 05/09/22 05/09/22 13:18 04:50 WBC RBC Hgb Hct MCV MCH MCHC RDW Plt Count MPV Sodium Potassium Chloride Carbon Dioxide Anion Gap BUN Creatinine Estimated GFR Glucose Calcium Magnesium 2.0 Total Bilirubin AST ALT Alkaline Phosphatase Troponin I Serum Total Protein Albumin Stool Occult Blood POSITIVE A Orders (Last 24 hours) Category Date Time Status [place] Diet Diet 05/09/22 Lunch Active Clear Liquid Diet 05/09/22 Lunch Completed CBC AM.LAB Lab 05/10/22 06:00 Completed CMP AM.LAB Lab 05/10/22 06:00 Completed FECAL OCCULT BLOOD - SCREENING Stat Lab 05/09/22 13:18 Completed TROPONIN AM.LAB Lab 05/10/22 06:00 Completed Cholecalciferol (Vitamin D3) [Vitamin D] Med 05/09/22 10:00 Active 2,000 unit PO DAILY Cyanocobalamin 500 Mcg [Vitamin B-12 500 MCG] Med 05/09/22 10:00 Active 2,000 mcg PO DAILY Empagliflozin [Jardiance] Med 05/09/22 18:00 Active 10 mg PO DAILY Enoxaparin Sodium [Enoxaparin Sodium] Med 05/09/22 10:00 Active 40 mg SQ DAILY Ezetimibe 10 mg [Zetia 10 MG] Med 05/09/22 22:00 Active 10 mg PO HS Isosorbide Mononitrate 60 mg [Imdur 60MG] Med 05/09/22 10:00 Active 60 mg PO DAILY Levothyroxine Sodium 50 Mcg [Synthroid 50 Mcg] Med 05/10/22 06:00 Active 50 mcg PO 0600 Lisinopril 5 mg [Zestril 5 MG] Med 05/09/22 10:00 Discontinued 2.5 mg PO DAILY Lisinopril 5 mg [Zestril 5 MG] Med 05/09/22 10:00 Active 5 mg PO DAILY Loratadine 10 mg [Claritin 10 mg] Med 05/09/22 10:00 Active 10 mg PO DAILY Pantoprazole 40 mg [Protonix 40 mg IV] Med 05/09/22 10:00 Active 40 mg IV Q24H10 Patient Own Med [Patient Own Medication] Med 05/09/22 10:00 Active 1 each OP BID Potassium Chloride Tab* [Klor Con] Med 05/09/22 12:37 Discontinued 10 meq PO STAT ONE Potassium Chloride Tab* [Klor Con] Med 05/09/22 22:00 Active 20 meq PO BID Simvastatin 10 mg [Zocor 10MG] Med 05/09/22 22:00 Active 10 mg PO HS Sod Sulf/Sod/Nahco3/KCl/Peg's* [Golytely Solution 4000 Med 05/09/22 14:00 Discontinued ML] 4,000 ml PO ONCE@1400 ONE Patient Care Notes (Last 24 hours) 05/09/22 17:43 Nursing Note by Angelique Al dr on phone for dr miranda, new orders for jardiance 10mg daily, continue iv diuretics until thursday then switch to po. he said on thursday his office will set up an apointment for her to follow up with dr miranda in office. Initialized on 05/09/22 17:43 - END OF NOTE 05/09/22 11:14 Nursing Note by Angelique Al spoke with dr bach by phone, she spoke with dr miranda by phone about pt. new orders given to dc plavix and asa and dc egd/colonoscopy for now and set pt up for outpatient follow up with dr roberts once chf has resolved. dr roberts notified by phone and pt updated. Initialized on 05/09/22 11:14 - END OF NOTE Code(s): R77.8 - OTHER SPECIFIED ABNORMALITIES OF PLASMA PROTEINS (2) CHF (congestive heart failure) Current Visit: Yes Status: Acute Qualifiers: Heart failure type: combined systolic and diastolic Heart failure chronicity: acute on chronic Qualified Code(s): I50.43 - Acute on chronic combined systolic (congestive) and diastolic (congestive) heart failure Code(s): I50.9 - HEART FAILURE, UNSPECIFIED
[2022-05-10] MEDS: Lasix 40 MG/4 ML IV SCH ×2 (09:56→15:47)
[2022-05-10] MEDS: Klor Con PO SCH ×2 (09:56→21:21)
[2022-05-10] MEDS: JARDIANCE PO SCH (09:56)
[2022-05-10] MEDS: Vitamin B-12 500 MCG PO SCH (09:57)
[2022-05-10] MEDS: VITAMIN D PO SCH (09:57)
[2022-05-10] MEDS: Zestril 5 MG PO SCH (09:57)
[2022-05-10] MEDS: PROTONIX 40 MG IV IV SCH (09:57)
[2022-05-10] MEDS: PATIENT OWN MEDICATION OP SCH ×2 (10:11→21:22)
[2022-05-10 10:59] LABS: Slide Review YES
[2022-05-10] MEDS: Zetia 10 MG PO SCH (21:21)
[2022-05-10] MEDS: Zocor 10MG PO SCH (21:21)
[2022-05-11] MEDS: SYNTHROID 50 MCG PO SCH (06:04)
[2022-05-11 07:36] VITALS: O2SAT 100
[2022-05-11 07:49] VITALS: BP 109/53; PULSE 70
[2022-05-11] MEDS: Carafate 1 GM PO SCH (08:25)
[2022-05-11] MEDS: ENOXAPARIN SODIUM SQ SCH (08:26)
[2022-05-11] MEDS: Klor Con PO SCH (09:09)
[2022-05-11] MEDS: Vitamin B-12 500 MCG PO SCH (09:09)
[2022-05-11] MEDS: Imdur 60MG PO SCH (09:09)
[2022-05-11] MEDS: Lasix 40 MG/4 ML IV SCH (09:09)
[2022-05-11] MEDS: COREG 12.5 MG PO SCH (09:09)
[2022-05-11] MEDS: VITAMIN D PO SCH (09:10)
[2022-05-11] MEDS: Zestril 5 MG PO SCH (09:11)
[2022-05-11] MEDS: PROTONIX 40 MG IV IV SCH (09:11)
[2022-05-11] MEDS: JARDIANCE PO SCH (09:12)
[2022-05-11] MEDS: CLARITIN 10 MG PO SCH (09:12)
--- NOTE | 2022-05-11 10:10 | PCM.DS ---
Discharge Summary Date of Admission: 05/08/22 17:08 Admitting Physician: CARLEE PAYNE DO Consults: Consults on Case 05/08/22 16:00 Consult Surgery ROUTINE Primary Care Provider: CARLEE PAYNE DO Allergies Allergies Penicillins Allergy (Intermediate, Verified 05/08/22 12:37) Rash sulfadiazine Allergy (Intermediate, Verified 05/08/22 12:37) Itching amlodipine [From Norvasc] Adverse Reaction (Intermediate, Verified 05/08/22 12:37) hydrocodone Adverse Reaction (Intermediate, Verified 05/08/22 12:37) Itching meperidine [From Demerol] Adverse Reaction (Intermediate, Verified 05/08/22 12:37) Nausea and Vomiting sulfamethoxazole [From Bactrim] Adverse Reaction (Intermediate, Verified 05/08/22 12:37) Itching tetracycline Adverse Reaction (Intermediate, Verified 05/08/22 12:37) Rash trimethoprim [From Bactrim] Adverse Reaction (Intermediate, Verified 05/08/22 12:37) Itching cefaclor Adverse Reaction (Verified 05/08/22 12:37) fenofibrate [From Tricor] Adverse Reaction (Verified 05/08/22 12:37) Hospital Summary - Hospital Course Hospital Course: Chief Complaint Diagnosis CHF, GI Bleed Allergies Allergy/AdvReac Type Severity Reaction Status Date / Time Penicillins Allergy Intermediate Rash Verified 05/08/22 12:37 sulfadiazine Allergy Intermediate Itching Verified 05/08/22 12:37 amlodipine [From Norvasc] AdvReac Intermediate Verified 05/08/22 12:37 hydrocodone AdvReac Intermediate Itching Verified 05/08/22 12:37 meperidine [From Demerol] AdvReac Intermediate Nausea and Verified 05/08/22 12:37 Vomiting sulfamethoxazole AdvReac Intermediate Itching Verified 05/08/22 12:37 [From Bactrim] tetracycline AdvReac Intermediate Rash Verified 05/08/22 12:37 trimethoprim [From Bactrim] AdvReac Intermediate Itching Verified 05/08/22 12:37 cefaclor AdvReac Verified 05/08/22 12:37 fenofibrate [From Tricor] AdvReac Verified 05/08/22 12:37 Vital Signs (Last 24 hours) Temp Pulse Resp BP Pulse Ox 05/11/22 07:47 98.2 F 70 16 109/53 100 05/11/22 07:36 100 05/11/22 03:42 97.7 F 73 20 115/58 91 L 05/10/22 23:15 98.8 F 78 16 102/50 98 05/10/22 20:00 97.3 F 74 17 122/54 91 L 05/10/22 19:40 92 L 05/10/22 15:49 98.0 F 77 16 101/52 96 05/10/22 12:00 98.2 F 72 21 104/46 93 L Home Medications Medication Instructions Recorded Confirmed Last Taken Type Brinzolamide/Brimonidine Tart 1 drop OP BID 05/08/22 05/08/22 05/08/22 History [Simbrinza 1%-0.2% Eye Drop] Cyanocobalamin 500 Mcg [Vitamin 2,000 mcg PO DAILY 05/08/22 05/08/22 05/08/22 History B-12 500 MCG] Loratadine 10 mg [Claritin 10 1 tab PO DAILY 05/08/22 05/08/22 05/08/22 Hist ory mg] Pravastatin Sodium 10 mg PO HS 05/08/22 05/08/22 05/07/22 History Current Medications Generic Name Dose Route Start Last Admin Trade Name Darian PRN Reason Stop Dose Admin Acetaminophen 500 mg 05/09/22 05:20 Acetaminophen 500 Mg Tablet PO 06/08/22 05:19 Q4H PRN PRN PAIN Alprazolam 0.25 mg 05/09/22 05:19 Alprazolam 0.25 Mg Tablet PO 06/08/22 05:18 BID PRN PRN ANXIETY Carvedilol 12.5 mg 05/08/22 22:00 05/11/22 09:09 Carvedilol 12.5 Mg Tablet PO 06/07/22 21:59 12.5 mg BID RAY Administration Cholecalciferol 2,000 unit 05/09/22 10:00 05/11/22 09:10 Cholecalciferol (Vitamin D3) 1000 Unit Tablet PO 06/08/22 09:59 2,000 unit DAILY RAY Administration Cyanocobalamin 2,000 mcg 05/09/22 10:00 05/11/22 09:09 Cyanocobalamin 500 Mcg Tablet PO 06/08/22 09:59 2,000 mcg DAILY RAY Administration Ezetimibe 10 mg 05/09/22 22:00 05/10/22 21:21 Ezetimibe 10 Mg Tab PO 06/08/22 21:59 10 mg HS RAY Administration Empagliflozin 10 mg 05/09/22 18:00 05/11/22 09:12 Empagliflozin 10 Mg Tablet PO 06/08/22 17:59 10 mg DAILY RAY Administration Enoxaparin Sodium 40 mg 05/09/22 10:00 05/11/22 08:26 Enoxaparin Sodium 40 Mg/0.4 Ml Syringe SQ 06/08/22 09:59 40 mg DAILY RAY Administration Furosemide 40 mg 05/08/22 17:00 05/11/22 09:09 Furosemide 40 Mg/4 Ml Vial IV 06/07/22 16:59 40 mg BID DIURETIC RAY Administration Isosorbide Mononitrate 60 mg 05/09/22 10:00 05/11/22 09:09 Isosorbide Mononitrate 60 Mg Tab PO 06/08/22 09:59 60 mg DAILY RAY Administration Levothyroxine Sodium 50 mcg 05/10/22 06:00 05/11/22 06:04 Levothyroxine Sodium 50 Mcg Tablet PO 06/09/22 05:59 50 mcg 0600 RAY Administration Lisinopril 5 mg 05/09/22 10:00 05/11/22 09:11 Lisinopril 5 Mg Tablet PO 06/08/22 09:59 5 mg DAILY RAY Administration Loratadine 10 mg 05/09/22 10:00 05/11/22 09:12 Loratadine 10 Mg Tablet PO 06/08/22 09:59 10 mg DAILY RAY Administration Miscellaneous Information 1 each 05/09/22 07:15 Medication Intervention 1 Each Each 06/08/22 07:14 .RN TO CHECK RAY Nitroglycerin 0.4 mg 05/09/22 07:15 Nitroglycerin 0.4 Mg Tablet Bottle SL 06/08/22 07:14 UD PRN Pantoprazole Sodium 40 mg 05/09/22 10:00 05/11/22 09:11 Pantoprazole 40 Mg Vial IV 06/07/22 21:59 40 mg Q24H10 RAY Administration Simbrinza Eye Drops 1 each 05/09/22 10:00 05/10/22 21:22 OP 06/08/22 09:59 1 each BID RAY Administration Potassium Chloride 20 meq 05/09/22 22:00 05/11/22 09:09 Potassium Chloride Tab 10 Meq Tab PO 06/08/22 21:59 20 meq BID RAY Administration Simvastatin 10 mg 05/09/22 22:00 05/10/22 21:21 Simvastatin 10 Mg Tablet PO 06/08/22 21:59 10 mg HS RAY Administration Sucralfate 1 g 05/08/22 22:00 05/10/22 21:21 Sucralfate 1 G Tablet PO 06/07/22 21:59 1 g ACHS RAY Administration Discontinued Medications Generic Name Dose Route Start Last Admin Trade Name Darian PRN Reason Stop Dose Admin Carvedilol 7.81 mg 05/08/22 22:00 05/08/22 23:10 Carvedilol 3.125 Mg Tablet PO 06/07/22 21:59 Not Given BID RAY Carvedilol 12.5 mg 05/08/22 22:03 Carvedilol 3.125 Mg Tablet PO 06/07/22 21:59 BID RAY Carvedilol Confirm 05/08/22 23:05 Carvedilol 12.5 Mg Tablet Administered 05/08/22 23:06 Dose 12.5 mg .ROUTE .STK-MED ONE Ezetimibe 10 mg 05/08/22 22:00 05/08/22 23:03 Ezetimibe 10 Mg Tab PO 05/08/22 22:01 10 mg ONCE ONE Administration Sodium Chloride 1,000 mls @ 50 mls/hr 05/08/22 13:30 05/08/22 14:34 Sodium Chloride 0.9% 1000 Ml IV 06/07/22 13:29 50 mls/hr .Q20H RAY Administration Sodium Chloride Confirm 05/08/22 14:34 Sodium Chloride 0.9% 1000 Ml Administered 05/08/22 14:35 Dose 1,000 mls @ ud .ROUTE .STK-MED ONE Levothyroxine Sodium 50 mcg 05/09/22 06:00 05/09/22 06:13 Levothyroxine Sodium 50 Mcg Tablet PO 05/09/22 06:01 50 mcg ONCE ONE Administration Lisinopril 2.5 mg 05/09/22 10:00 Lisinopril 5 Mg Tablet PO 06/08/22 09:59 DAILY RAY Non-Formulary Medication 1 each 05/08/22 22:00 05/08/22 23:09 Non-Formulary Drug 1 Each Each OP 05/08/22 22:01 1 each ONCE ONE Administration Pantoprazole Sodium 40 mg 05/08/22 22:00 05/08/22 21:21 Pantoprazole 40 Mg Vial IV 06/07/22 21:59 40 mg Q24H RAY Administration Polyethylene Glycol/Electrolytes 4,000 ml 05/09/22 14:00 Sod Sulf/Sod/Nahco3/Kcl/Peg's 4000 Ml Bottle PO 05/09/22 14:01 ONCE@1400 ONE Potassium Chloride 10 meq 05/08/22 22:00 05/09/22 09:12 Potassium Chloride Tab 10 Meq Tab PO 06/07/22 21:59 10 meq BID RAY Administration Potassium Chloride 10 meq 05/09/22 12:37 05/09/22 13:13 Potassium Chloride Tab 10 Meq Tab PO 05/09/22 12:38 10 meq STAT ONE Administration Simvastatin 10 mg 05/08/22 22:00 05/08/22 23:03 Simvastatin 10 Mg Tablet PO 05/08/22 22:01 10 mg ONCE ONE Administration Intake & Output (Last 24 hours) 05/08/22 05/09/22 05/10/22 05/11/22 11:59 11:59 11:59 11:59 Intake Total 800 1580 1240 Output Total 3300 1000 450 Balance -2500 580 790 Weight 73.5 kg 73.4 kg 74.2 kg Laboratory Results (Last 24 hours) 05/10/22 05/10/22 10:14 06:00 NT-Pro-B Natriuret Pep 1550 Slides for Path Review YES Orders (Last 24 hours) Category Date Time Status BNP [NT PRO BNP] Routine Lab 05/10/22 10:14 Completed Patient Care Notes (Last 24 hours) 05/11/22 09:23 Respiratory Note by Cayla Lim PT'S O2 SAT ON ROOM AIR WHILE AT REST WAS 93%. PT'S O2 SAT ON ROOM AIR WHILE WALKING WAS 91-94%. Initialized on 05/11/22 09:23 - END OF NOTE 05/11/22 03:27 Nursing Note by Zully Arriaga Patient placed back on 2L NC at appx 0000 d/t O2 sat 85% on RA. Initialized on 05/11/22 03:27 - END OF NOTE - Vitals & Intake/Output Vital Signs: Vital Signs Temperature 98.2 F 05/11/22 07:47 Pulse Rate 70 05/11/22 07:47 Respiratory Rate 16 05/11/22 07:47 Blood Pressure 109/53 05/11/22 07:47 O2 Sat by Pulse Oximetry 100 05/11/22 07:47 Intake & Output: Intake & Output 05/08/22 05/09/22 05/10/22 05/11/22 11:59 11:59 11:59 11:59 Intake Total 800 1580 1240 Output Total 3300 1000 450 Balance -2500 580 790 Weight 73.5 kg 73.4 kg 74.2 kg - Lab Result Diagrams: 05/10/22 06:00 05/10/22 06:00 Lab Results-Last 24 Hrs: Lab Results-Last 24 Hours 05/10/22 05/10/22 Range/Units 06:00 10:14 NT-Pro-B Natriuret Pep 1550 (0-1800) pg/mL Slides for Path Review YES - Procedures and Test Procedures and Tests throughout Hospitalization: Therapy Orders & Screens 05/08/22 16:00 Oxygen NASAL CANNULA 2 lpm Comment: Diagnosis: CHF 05/09/22 06:00 EKG IN AM Comment: Discharge Exam General Appearance: no apparent distress, alert Neurologic Exam: alert, oriented x 3, cooperative, normal mood/affect, nml cerebellar function, sensation nml, No motor deficits Eye Exam: PERRL, EOMI, eyes nml inspection Ears, Nose, Throat Exam: normal ENT inspection, pharynx normal, moist mucous membranes Neck Exam: normal inspection, non-tender, supple, full range of motion Respiratory Exam: normal breath sounds, lungs clear, No respiratory distress Cardiovascular Exam: regular rate/rhythm, normal heart sounds Gastrointestinal/Abdomen Exam: soft, No tenderness, No mass Pelvic Exam: deferred Rectal Exam: deferred Back Exam: normal inspection, normal range of motion, No CVA tenderness, No vertebral tenderness Extremity Exam: normal inspection, normal range of motion Skin Exam: normal color, warm, dry Final Diagnosis/Problem List - Final Discharge Diagnosis/Problem (1) Elevated troponin Current Visit: Yes Status: Resolved Code(s): R77.8 - OTHER SPECIFIED ABNORMALITIES OF PLASMA PROTEINS (2) CHF (congestive heart failure) Current Visit: Yes Status: Chronic Code(s): I50.9 - HEART FAILURE, UNSPECIFIED - Discharge Discharge Date: 05/11/22 Disposition: Home, Self-Care Condition: Stable Prescriptions: Continue PANTOPRAZOLE 40 mg Tablet [Protonix 40MG Tablet] 40 mg PO QAM Nitroglycerin 0.4 mg Tablet [Nitrostat 0.4 MG Tablet] 0.4 mg SL UD Ezetimibe 10 mg [Zetia 10 MG] 10 mg PO HS Cholecalciferol (Vitamin D3) [Vitamin D] 2,000 unit PO DAILY Levothyroxine Sodium [Levothyroxine] 50 mcg PO 0600 Clopidogrel Bisulfate [PLAVIX Tablet] 75 mg PO DAILY Aspirin EC 81 mg [Ecotrin 81 mg] 81 mg PO HS Carvedilol 3.125 mg [Coreg 3.125 MG] 12.5 mg PO BID C/Sourcherry/Celery/Grape Seed [Tart Mercedes Capsule] 1 each PO DAILY Isosorbide Mononitrate 60 mg [Imdur 60MG] 60 mg PO DAILY Loratadine 10 mg [Claritin 10 mg] 1 tab PO DAILY Brinzolamide/Brimonidine Tart [Simbrinza 1%-0.2% Eye Drop] 1 drop OP BID Cyanocobalamin 500 Mcg [Vitamin B-12 500 MCG] 2,000 mcg PO DAILY Pravastatin Sodium 10 mg PO HS Additional Instructions: PER DR ABBASI-PAULIE ASA AND PLAVIX AT DISCHARGE. FOLLOW UP WITH DR Yadira SUMMERS OUTPT FOR EGD/COLONOSCOPY. MONITOR [facility] OUTPATIENT. Follow up with: FRANCISCO ABBASI [CONSULTING PHYSICIAN] - HERNANDO SUMMERS [ACTIVE STAFF] - CARLEE PAYNE DO [Primary Care Provider] - 5 Days
--- NOTE | 2022-05-12 10:23 | CONS ---
TELE-CARDIOLOGY CONSULT DATE: 05/09/2022 REASON FOR CONSULT: Congestive heart failure, coronary artery disease. HISTORY: Julia Sneed is an 86-year-old woman with history of coronary artery disease status post two vessel coronary artery bypass graft in 1996 and subsequent PCI of her left anterior descending after non-ST elevation myocardial infarction in July 2020. She has preserved ejection fraction of 55 to 60% on echo done in 2020. 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 She also has recurrent anemia of unclear source as she has previously had endoscopies in the past. She presented to [facility] with progressive shortness of breath and anemia. She is also noted to have mildly elevated troponins which had been stable. She reports that recently her hemoglobin dropped to as low as 7. She received 3 units of blood and subsequently over the past several weeks she has had progressive shortness of breath. When she was admitted she was found to be in congestive heart failure with elevated BNP. She was then initiated on IV diuretic and had improvement in her symptoms of orthopnea, dyspnea on exertion as well as early satiety and abdominal fullness. Today she feels much better. Her ECG does not demonstrate any active ischemic issues and she has denied any chest pain since receiving blood. Her fecal occult blood was positive and her aspirin and clopidogrel have been held since admission. REVIEW OF SYSTEMS: Fourteen system review performed. Pertinent positives noted in history of present illness otherwise negative. MEDICATIONS: Current medications reviewed in EMR, please see EMR for full details. LAB DATA AND TESTS: Laboratory data reviewed. TSH is normal. Cardiac enzymes have ranged from 0.229 to 0.262 and are down trending. NT Pro-BNP was 3880, potassium 3.4, creatinine 0.68. Hemoglobin 9.7 currently. Her PLT count 144,000 and normal white blood cell count. ECG demonstrated sinus rhythm with right bundle branch block and left anterior fascicular block. There has been no dynamic ECG changes. Most recent echo demonstrates ejection fraction of 55-60% with mild aortic regurgitation, mild to moderate mitral regurgitation, mild tricuspid regurgitation with right ventricular systolic pressure of 32 mm of Mercury. IMPRESSION: 1) Acute on chronic diastolic congestive heart failure. 2) Elevated troponins consistent with type 2 myocardial infarction. 3) Anemia. Chronic anemia with acute worsening requiring blood transfusion. 4) Severe peripheral vascular disease. 5) History of coronary artery disease. Assessed post-coronary artery bypass graft in remote past. RECOMMENDATIONS: I would continue IV diuretics to keep her net negative. Anticipate needing a few more days of aggressive diuresis. I would add empagliflozin 10 mg daily for added natriuresis and improvement in heart failure outcome. I would also resume at least aspirin 81 mg daily if hemoglobin remains stable. It is okay to hold clopidogrel for now as the most recent PCI was over one year ago. Continue monitoring renal function and electrolytes and replete potassium and magnesium as indicated. I will plan to have her follow up with Dr. Crockett soon after discharge within one to two weeks. Thank you Dr. Huston for allowing me to participate in the care of your patient.
== END 2022-05-11 11:18 | disposition home or self-care (01) ==
LOC: ED 12:36 → MED SURG 17:08
PROVIDERS: ADMIT Family Medicine; ATTEND Family Medicine
DX: R77.8 Other specified abnormalities of plasma proteins (principal); I11.0 Hypertensive heart disease with heart failure; I50.9 Heart failure, unspecified; K64.8 Other hemorrhoids; D64.9 Anemia, unspecified; I25.10 Atherosclerotic heart disease of native coronary artery without angina pectoris; I25.2 Old myocardial infarction; Z79.899 Other long term (current) drug therapy; Z20.828 Contact with and (suspected) exposure to other viral communicable diseases; Z79.01 Long term (current) use of anticoagulants
CPT/HCPCS: 0241U; 36410; 36415; 71045; 71260; 76942; 80048; 80053; 81015; 83605; 83735; 83880; 84145; 84443; 84484; 85025; 85027; 85379; 85610; 85730; 86850; 86900; 86901; 93005; 93268; 94762; 99100; 99285; G0328; G0378; 82274; J1650; J1940; A9270-GY

== ENCOUNTER 2022-09-11 06:58 | Day surgery (SDC) | payer MEDICARE ==
--- NOTE | 2022-09-09 14:06 | HP ---
DATE OF SURGERY: 09/11/2022 HISTORY OF PRESENT ILLNESS: The patient is an 87-year-old female presents with a hemoglobin of 7. She had been hospitalized and a couple of units of blood. She presents for endoscopy today. Currently off of her anticoagulation. PAST MEDICAL HISTORY: Congestive heart failure, pancreatitis, hyperlipidemia, hypothyroidism, diabetes, coronary artery disease. PAST SURGICAL HISTORY: Knee surgery. Hernia repair. Cardiac cath. Cholecystectomy. Carotid endarterectomy. Coronary artery bypass graft. Hysterectomy. ALLERGIES: PENICILLIN. SULFADIAZINE. AMLODIPINE. BACTRIM. HYDROCODONE. MEPERIDINE. TETRACYCLINE. CEFACLOR. FENOFIBRATE. MEDICATIONS: Carvedilol, Plavix, vitamin B12, Zetia, isosorbide, Jardiance, Krill oil, loratadine, Nitro, pantoprazole, pravastatin, Simbrinza, Synthroid, vitamin D3, Vyzulta eye drops. FAMILY HISTORY: None reported. SOCIAL HISTORY: None reported. REVIEW OF SYSTEMS: CONSTITUTIONAL: Denies fever or chills. CHEST: Denies shortness of breath. CVS: Denies chest pain. ABDOMEN: Denies abdominal pain. PHYSICAL EXAMINATION: GENERAL: No acute distress. CHEST: Nonlabored. No shortness of breath. CVS: Regular rate and rhythm. ABDOMEN: Soft. IMPRESSION: Heme-positive stool, recent GI bleed, anemia. PLAN: EGD and colonoscopy with Dr. Alec Campbell. As dictated by Ama Corona NP.
[~2022-09-11 06:58] MED LIST changes: +DIPRIVAN 200 MG/20 ML IV ONE; -Lactated Ringers 1,000 ML IV SCH; +Xylocaine-Mpf 2% 5 Ml Vial ONE
[2022-09-11] MEDS ORDERED: Lactated Ringers 1,000 ML IV SCH (07:00)
[2022-09-11] MEDS ORDERED: Lactated Ringers 1,000 ML IV ONE (07:37)
[2022-09-11] MEDS ORDERED: GlucaGen 1 MG ONE (10:06)
[2022-09-11] MEDS ORDERED: Ephedrine Sulfate 50 MG/ML ONE (10:10)
[2022-09-11] MEDS ORDERED: DIPRIVAN 200 MG/20 ML IV ONE (10:22)
--- NOTE | 2022-09-11 12:16 | XRAY ---
Indication: Incomplete colonoscopy. No biopsy. Comparison: September 22, 2018. Preliminary quality assistant abdomen nonacute and nonobstructed. Scattered vascular calcifications, cholecystotomy clips, mild bony degenerative changes, osteopenia, and mild dextroscoliosis. Following insertion barium enema catheter, balloon tip was insufflated. Colon was then infused with barium and air insufflated using fluoroscopic and gravity control. Multiple digital spot and overhead radiographs obtained. There is good opacification and distention of the entire colon. No focal stricture, obstruction, or filling defect. Stable minimal sigmoid diverticulosis. No presacral soft tissue mass. Small amount of barium reflux into the terminal ileum. Impression: Stable minimal sigmoid diverticulosis. Remaining double contrast barium enema exam is negative. Approximately 2.1 minutes fluoroscopy used.
[2022-09-11 12:34] VITALS: BP 138/87; PULSE 67; O2SAT 93
--- NOTE | 2022-09-11 12:51 | OP ---
SURGERY DATE/TIME: 09/11/2022 0945 PREOPERATIVE DIAGNOSIS: Anemia with heme-positive stool, hemoglobin down to 9 now down to 8. POSTOPERATIVE DIAGNOSES: 1) Chronic gastritis of the entire stomach. 2) Colonoscopy grossly normal to hepatic flexure. PROCEDURES: 1) EGD with cold biopsy x3. 2) Colonoscopy to hepatic flexure. No biopsies. SURGEON: Alec Campbell M.D. ANESTHESIA: MAC. COMPLICATIONS: None. CONDITION: Stable. DESCRIPTION OF PROCEDURE: Patient taken to endoscopy. Pharyngoesophageal junction normal. Esophagus normal down to gastroesophageal junction. Gastroesophageal junction normal. The entire stomach had centimeter-like lesions, some type of chronic gastritis. I wonder if there could be some lymphocytic invasion. Three very substantial biopsies of these lesions were taken cold. Pylorus satisfactory. Duodenal bulb satisfactory. Second portion satisfactory. Scope withdrawn and looped upon itself. No hiatal hernia. Scope withdrawn. The patient tolerated the procedure satisfactorily.
== END 2022-09-11 12:35 | disposition home or self-care (01) ==
LOC: SDC 06:58
PROVIDERS: ATTEND Surgery
DX: K29.70 Gastritis, unspecified, without bleeding (principal); D64.9 Anemia, unspecified; K92.1 Melena
CPT/HCPCS: 74280; 99100; J1610; J2704

== ENCOUNTER 2022-12-05 15:33 | Emergency (ER) | payer MEDICARE ==
--- NOTE | 2022-12-05 15:38 | ERPHSYRPT ---
- History of Present Illness Time Seen by Provider: 12/05/22 15:38 Historian: patient, family Exam Limitations: no limitations Physician History: This is an 87-year-old white female patient of Dr. Edwards who presents to the emergency department with complaints of lower substernal and epigastric discomfort/ache (5-6 out of 10) that radiates into her back. She has associated nausea, chills, low-grade tachycardia. She "just feels terrible". Patient has chronic anemia and her most recent hemoglobin was over 9. However she has low iron levels and her professor of family medicine, Dr. Gomez ordered iron infusion for her. She received her first iron infusion today. Patient's temperature was taken prior to receiving iron infusion and it was afebrile. Patient arrives with a fever of 101.5 here in the emergency department. Patient denies feeling poorly or having flulike symptoms prior to the iron infusion today. Patient does have a manager power, Dr. Crockett, out of [facility]. Patient has a history of chronic anemia, gastroesophageal reflux disease, hypothyroidism, arrhythmias, peripheral vascular disease and coronary disease having had a CABG and cardiac stents in the past. Timing/Duration: today Quality: aching Location: substernal, epigastric Chest Pain Radiation: back Severity of Pain-Max: mild Severity of Pain-Current: mild Modifying Factors: Improves With: nothing Associated Symptoms: nausea, No shortness of breath, No cough, No weakness Prior Chest Pain/Cardiac Workup: cardiac cath Nitro Today/Relief: no nitro taken today Aspirin Treatment Today: no aspirin today Allergies/Adverse Reactions: Penicillins Allergy (Intermediate, Verified 12/05/22 09:37) Rash sulfadiazine Allergy (Intermediate, Verified 12/05/22 09:37) Itching amlodipine [From Norvasc] Adverse Reaction (Intermediate, Verified 12/05/22 09:37) hydrocodone Adverse Reaction (Intermediate, Verified 12/05/22 09:37) Itching meperidine [From Demerol] Adverse Reaction (Intermediate, Verified 12/05/22 09:37) Nausea and Vomiting sulfamethoxazole [From Bactrim] Adverse Reaction (Intermediate, Verified 12/05/22 09:37) Itching tetracycline Adverse Reaction (Intermediate, Verified 12/05/22 09:37) Rash trimethoprim [From Bactrim] Adverse Reaction (Intermediate, Verified 12/05/22 09:37) Itching cefaclor Adverse Reaction (Verified 12/05/22 09:37) fenofibrate [From Tricor] Adverse Reaction (Verified 12/05/22 09:37) Home Medications: Cholecalciferol (Vitamin D3) [Vitamin D] 2,000 unit PO DAILY 07/23/18 [History] Ezetimibe 10 mg [Zetia 10 MG] 10 mg PO HS 07/23/18 [History] Nitroglycerin 0.4 mg Tablet [Nitrostat 0.4 MG Tablet] 0.4 mg SL UD 07/23/18 [History] PANTOPRAZOLE 40 mg Tablet [Protonix 40MG Tablet] 40 mg PO QAM 07/23/18 [History] C/Sourcherry/Celery/Grape Seed [Tart Mercedes Capsule] 1 each PO DAILY 11/28/20 [History] Carvedilol 3.125 mg [Coreg 3.125 MG] 12.5 mg PO BID 11/28/20 [History] Levothyroxine Sodium 50 mcg PO 0600 11/28/20 [History] Isosorbide Mononitrate 60 mg [Imdur 60MG] 60 mg PO DAILY 04/14/22 [History] Brinzolamide/Brimonidine Tart [Simbrinza 1%-0.2% Eye Drop] 1 drop OP BID 01/20 [History] Cyanocobalamin 500 Mcg [Vitamin B-12 500 MCG] 2,000 mcg PO DAILY 05/08/22 [History] Loratadine 10 mg [Claritin 10 mg] 1 tab PO DAILY 05/08/22 [History] Pravastatin Sodium 10 mg PO HS 05/08/22 [History] Latanoprostene Bunod [Vyzulta] 5 ml OP HS 09/11/22 [History] Hx Tetanus, Diphtheria Vaccination/Date Given: No Hx Influenza Vaccination/Date Given: Yes Hx Pneumococcal Vaccination/Date Given: Yes Travel Risk - International Travel Have you traveled outside of the country in past 3 weeks: No - Coronavirus Screening Are you exhibiting any of the following symptoms?: Yes Symptoms: Fever, Headaches/Body Aches/Fatigue Close contact with a COVID-19 positive Pt in past 14-21 Days: No - Vaccine Status Have you recieved a Covid-19 vaccination: Yes Dolly Pusher: Moderna - Vaccination Dates Date of 2cond Vaccination (if applicable): 10/11/20 - Review of Systems Constitutional: Fever, Chills Eyes: No Symptoms Ears, Nose, & Throat: No Symptoms Respiratory: No Symptoms Cardiac: Chest Pain Abdominal/Gastrointestinal: Nausea, No Abdominal Pain, No Vomiting, No Diarrhea Genitourinary Symptoms: No Symptoms Musculoskeletal: No Symptoms Skin: No Symptoms Neurological: No Symptoms Psychological: No Symptoms Endocrine: No Symptoms Hematologic/Lymphatic: No Symptoms Immunological/Allergic: No Symptoms All Other Systems: Reviewed and Negative - Past Medical History Pertinent Past Medical History: Yes Neurological History: No Pertinent History ENT History: Glaucoma, Macular Degeneration Cardiac History: Arrhythmia, Congestive Heart Failure, Coronary Artery Disease, High Cholesterol, Hypertension, Myocardial Infarction ([place]), Peripheral Vascular Disease Respiratory History: Bronchitis, Other Endocrine Medical History: Hypothyroidism Musculoskeletal History: Arthritis GI Medical History: Diverticulitis, GERD, Gallbladder Disease, Hernia, Pancreatitis, Other History: Other Psycho-Social History: No Pertinent History Female Reproductive Disorders: Menstrual Problems, Other Other Medical History: basil cell, anemia, COVID in March 2022 - Past Surgical History Past Surgical History: Yes Neuro Surgical History: No Pertinent History Cardiac: CABG, Cardiac Catheterization, Cardiac Stent Respiratory: No Pertinent History Gastrointestinal: Cholecystectomy, Hernia Repair Genitourinary: No Pertinent History Musculoskeletal: Joint Replacement Female Surgical History: Hysterectomy Other Surgical History: bilat knees, left CEA. 2 stents in right leg and one in left leg. - Social History Smoking Status: Never smoker Exposure to second hand smoke: No Drug Use: none Patient Lives Alone: Yes - Nursing Vital Signs Nursing Vital Signs: Initial Vital Signs Temperature 101.5 F 12/05/22 15:34 Pulse Rate 109 H 12/05/22 15:34 Respiratory Rate 22 12/05/22 15:34 Blood Pressure 119/81 12/05/22 15:34 O2 Sat by Pulse Oximetry 91 L 12/05/22 15:34 Pain Scale Pain Intensity 0 - Physical Exam General Appearance: mild distress, alert, anxiety Eye Exam: PERRL/EOMI, eyes nml inspection Ears, Nose, Throat Exam: moist mucous membranes Neck Exam: normal inspection Respiratory Exam: normal breath sounds, chest tenderness, respiratory distress, airway intact, No lungs clear Cardiovascular Exam: normal peripheral pulses, tachycardia Gastrointestinal/Abdomen Exam: soft, normal bowel sounds, No tenderness Pelvic Exam: not done Rectal Exam: not done Back Exam: normal inspection, normal range of motion, No CVA tenderness, No vertebral tenderness Extremity Exam: normal inspection, normal range of motion, pelvis stable Neurologic Exam: alert, oriented x 3, cooperative, 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 nml as tested, normal mood/affect, nml cerebellar function, nml station & gait, sensation nml Skin Exam: normal color, warm, dry Lymphatic Exam: No adenopathy SpO2 Interpretation: normal O2 Delivery: Room Air - Course Nursing assessment & vital signs reviewed: Yes EKG Interpreted by Me: RATE (105), Sinus Tach, Other (no acute ischemia) Ordered Tests: Active Orders 24 hr Category Date Time Status Refrigeration Plant Operator STAT Care 12/05/22 15:43 Active EKG-ER Only STAT Care 12/05/22 15:41 Active IV Insertion STAT Care 12/05/22 15:41 Active Pulse Oximetry (ED) STAT Care 12/05/22 15:41 Active CHEST 1 VIEW (PORTABLE) Stat Exams 12/05/22 15:42 Completed BLOOD CULTURE Stat Lab 12/05/22 16:05 Received CBC W DIFF Stat Lab 12/05/22 15:50 Completed CMP Stat Lab 12/05/22 15:50 Completed CULTURE,URINE Stat Lab 12/05/22 16:58 Received Lactic Acid Stat Lab 12/05/22 16:05 Completed Lactic Acid Stat Lab 12/05/22 18:07 Completed NT PRO BNPII Stat Lab 12/05/22 15:50 Completed T4 (Thyroxine) Stat Lab 12/05/22 15:50 Completed TROPONIN Q4H Lab 12/05/22 15:50 Completed TROPONIN Q4H Lab 12/05/22 19:55 Completed TROPONIN Q4H Lab 12/05/22 23:45 Ordered TSH [TSH, 3RD Generation] Stat Lab 12/05/22 15:50 Completed UA W/RFX UR CULTURE Stat Lab 12/05/22 16:58 Completed Medication Summary Generic Name Dose Route Start Last Admin Trade Name Freq PRN Reason Stop Dose Admin Sodium Chloride 1,000 mls @ 100 mls/hr 12/05/22 16:00 12/05/22 20:40 Sodium Chloride 0.9% 1000 Ml IV 01/04/23 15:59 Infused .Q10H RAY Infusion Discontinued Medications Generic Name Dose Route Start Last Admin Trade Name Darian PRN Reason Stop Dose Admin Acetaminophen 650 mg 12/05/22 15:47 12/05/22 16:00 Acetaminophen 325 Mg Tablet PO 12/05/22 15:48 650 mg STAT STA Administration Acetaminophen Confirm 12/05/22 15:57 Acetaminophen 500 Mg Tablet Administered 12/05/22 15:58 Dose 500 mg .ROUTE .STK-MED ONE Acetaminophen Confirm 12/05/22 16:00 Acetaminophen 325 Mg Tablet Administered 12/05/22 16:01 Dose 650 mg .ROUTE .STK-MED ONE Enoxaparin Sodium 80 mg 12/05/22 18:35 12/05/22 19:23 Enoxaparin Sodium 80 Mg/0.8 Ml Syringe SQ 12/05/22 18:36 80 mg STAT ONE Administration Enoxaparin Sodium Confirm 12/05/22 19:22 Enoxaparin Sodium 80 Mg/0.8 Ml Syringe Administered 12/05/22 19:23 Dose 80 mg SQ .STK-MED ONE Levofloxacin/Dextrose 500 mg in 100 mls @ 100 mls/hr 12/05/22 17:45 12/05/22 18:51 Levofloxacin 500mg/100ml D5w IV 12/05/22 18:44 Infused STAT STA Infusion Levofloxacin/Dextrose Confirm 12/05/22 17:47 Levofloxacin 500mg/100ml D5w Administered 12/05/22 17:48 Dose 500 mg in 100 mls @ ud IV .STK-MED ONE Ondansetron HCl 4 mg 12/05/22 15:55 12/05/22 16:00 Ondansetron Hcl 2 Mg/Ml 20ml Mdv IV 12/05/22 15:56 Not Given STAT ONE Ondansetron HCl Confirm 12/05/22 15:57 Ondansetron Hcl 4 Mg/2 Ml Vial Administered 12/05/22 15:58 Dose 4 mg .ROUTE .STK-MED ONE Ondansetron HCl 4 mg 12/05/22 15:59 12/05/22 16:00 Ondansetron Hcl 4 Mg/2 Ml Vial IV 12/05/22 16:00 4 mg STAT ONE Administration Lab/Rad Data: Laboratory Result Diagrams 12/05/22 15:50 12/05/22 15:50 Laboratory Results 12/05/22 12/05/22 12/05/22 Range/Units 19:55 18:07 16:58 WBC (4.0-10.5) x10^3/uL RBC (4.1-5.4) x10^6/uL Hgb (12.0-16.0) g/dL Hct (35-47) % MCV (78-100) fL MCH (26-32) pg MCHC (32-36) g/dL RDW (11.5-14.0) % Plt Count (150-450) x10^3/uL MPV (7.5-11.0) fL Gran % (36.0-66.0) % Immature Gran % (Auto) (0.00-0.4) % Nucleat RBC Rel Count (0.00-0.1) % Eos # (Auto) (0-0.5) x10^3/uL Immature Gran # (Auto) (0.00-0.03) x10^3u/L Absolute Lymphs (auto) (1.0-4.6) x10^3/uL Absolute Monos (auto) (0.0-1.3) x10^3/uL Absolute Nucleated RBC (0.00-0.01) x10^3u/L Lymphocytes % (24.0-44.0) % Monocytes % (0.0-12.0) % Eosinophils % (0.00-5.0) % Basophils % (0.0-0.4) % Absolute Granulocytes (1.4-6.9) x10^3/uL Basophils # (0-0.4) x10^3/uL Sodium (137-145) mmol/L Potassium (3.5-5.1) mmol/L Chloride (98-107) mmol/L Carbon Dioxide (22-30) mmol/L Anion Gap (5-15) MEQ/L BUN (7-17) mg/dL Creatinine (0.52-1.04) mg/dL Estimated GFR ML/MIN Glucose (74-106) mg/dL Lactic Acid 1.0 (0.4-2.0) Calcium (8.4-10.2) mg/dL Total Bilirubin (0.2-1.3) mg/dL AST (14-36) U/L ALT (0-35) U/L Alkaline Phosphatase (38-126) U/L Troponin I 14.300 H* (0.000-0.034) ng/mL NT-Pro-B Natriuret Pep (<300) pg/mL Serum Total Protein (6.3-8.2) g/dL Albumin (3.5-5.0) g/dL Thyroxine (T4) (5.53-10.96) ug/dL TSH 3rd Generation (0.47-4.68) mIU/L Urine Color Yellow (Yellow) Urine Appearance Clear (Clear) Urine pH 5.5 (4.6-8.0) Ur Specific [place] 1.015 (1.005-1.030) Urine Protein Trace A (Negative) Urine Glucose (UA) Negative (Negative) mg/dL Urine Ketones Negative (Negative) Urine Blood Negative (Negative) Urine Nitrite Negative (Negative) Urine Bilirubin Negative (Negative) Urine Urobilinogen 0.2 (0.2) mg/dL Ur Leukocyte Esterase Negative (Negative) U Hyaline Cast (Auto) NONE SEEN (0-2) /LPF Urine Microscopic RBC 0-2 (0-5) /HPF Urine Microscopic WBC 0-2 (0-5) /HPF Ur Epithelial Cells None Seen (None Seen) /HPF Urine Bacteria None Seen (None Seen) /HPF Urine Culture Reflexed NO (NO) Influenza Type A Ag (NEGATIVE) Influenza Type B Ag (NEGATIVE) RSV (PCR) (NEGATIVE) SARS-CoV-2 (PCR) (NEGATIVE) Slides for Path Review 12/05/22 12/05/22 12/05/22 Range/Units 16:16 16:05 15:50 WBC (4.0-10.5) x10^3/uL RBC (4.1-5.4) x10^6/uL Hgb (12.0-16.0) g/dL Hct (35-47) % MCV (78-100) fL MCH (26-32) pg MCHC (32-36) g/dL RDW (11.5-14.0) % Plt Count (150-450) x10^3/uL MPV (7.5-11.0) fL Gran % (36.0-66.0) % Immature Gran % (Auto) (0.00-0.4) % Nucleat RBC Rel Count (0.00-0.1) % Eos # (Auto) (0-0.5) x10^3/uL Immature Gran # (Auto) (0.00-0.03) x10^3u/L Absolute Lymphs (auto) (1.0-4.6) x10^3/uL Absolute Monos (auto) (0.0-1.3) x10^3/uL Absolute Nucleated RBC (0.00-0.01) x10^3u/L Lymphocytes % (24.0-44.0) % Monocytes % (0.0-12.0) % Eosinophils % (0.00-5.0) % Basophils % (0.0-0.4) % Absolute Granulocytes (1.4-6.9) x10^3/uL Basophils # (0-0.4) x10^3/uL Sodium (137-145) mmol/L Potassium (3.5-5.1) mmol/L Chloride (98-107) mmol/L Carbon Dioxide (22-30) mmol/L Anion Gap (5-15) MEQ/L BUN (7-17) mg/dL Creatinine (0.52-1.04) mg/dL Estimated GFR ML/MIN Glucose (74-106) mg/dL Lactic Acid 3.6 H (0.4-2.0) Calcium (8.4-10.2) mg/dL Total Bilirubin (0.2-1.3) mg/dL AST (14-36) U/L ALT (0-35) U/L Alkaline Phosphatase (38-126) U/L Troponin I (0.000-0.034) ng/mL NT-Pro-B Natriuret Pep (<300) pg/mL Serum Total Protein (6.3-8.2) g/dL Albumin (3.5-5.0) g/dL Thyroxine (T4) 12.6 H (5.53-10.96) ug/dL TSH 3rd Generation (0.47-4.68) mIU/L Urine Color (Yellow) Urine Appearance (Clear) Urine pH (4.6-8.0) Ur Specific [place] (1.005-1.030) Urine Protein (Negative) Urine Glucose (UA) (Negative) mg/dL Urine Ketones (Negative) Urine Blood (Negative) Urine Nitrite (Negative) Urine Bilirubin (Negative) Urine Urobilinogen (0.2) mg/dL Ur Leukocyte Esterase (Negative) U Hyaline Cast (Auto) (0-2) /LPF Urine Microscopic RBC (0-5) /HPF Urine Microscopic WBC (0-5) /HPF Ur Epithelial Cells (None Seen) /HPF Urine Bacteria (None Seen) /HPF Urine Culture Reflexed (NO) Influenza Type A Ag NEGATIVE (NEGATIVE) Influenza Type B Ag NEGATIVE (NEGATIVE) RSV (PCR) NEGATIVE (NEGATIVE) SARS-CoV-2 (PCR) NEGATIVE (NEGATIVE) Slides for Path Review 12/05/22 12/05/22 12/05/22 Range/Units 15:50 15:50 15:50 WBC (4.0-10.5) x10^3/uL RBC (4.1-5.4) x10^6/uL Hgb (12.0-16.0) g/dL Hct (35-47) % MCV (78-100) fL MCH (26-32) pg MCHC (32-36) g/dL RDW (11.5-14.0) % Plt Count (150-450) x10^3/uL MPV (7.5-11.0) fL Gran % (36.0-66.0) % Immature Gran % (Auto) (0.00-0.4) % Nucleat RBC Rel Count (0.00-0.1) % Eos # (Auto) (0-0.5) x10^3/uL Immature Gran # (Auto) (0.00-0.03) x10^3u/L Absolute Lymphs (auto) (1.0-4.6) x10^3/uL Absolute Monos (auto) (0.0-1.3) x10^3/uL Absolute Nucleated RBC (0.00-0.01) x10^3u/L Lymphocytes % (24.0-44.0) % Monocytes % (0.0-12.0) % Eosinophils % (0.00-5.0) % Basophils % (0.0-0.4) % Absolute Granulocytes (1.4-6.9) x10^3/uL Basophils # (0-0.4) x10^3/uL Sodium (137-145) mmol/L Potassium (3.5-5.1) mmol/L Chloride (98-107) mmol/L Carbon Dioxide (22-30) mmol/L Anion Gap (5-15) MEQ/L BUN (7-17) mg/dL Creatinine (0.52-1.04) mg/dL Estimated GFR ML/MIN Glucose (74-106) mg/dL Lactic Acid (0.4-2.0) Calcium (8.4-10.2) mg/dL Total Bilirubin (0.2-1.3) mg/dL AST (14-36) U/L ALT (0-35) U/L Alkaline Phosphatase (38-126) U/L Troponin I 0.508 H* (0.000-0.034) ng/mL NT-Pro-B Natriuret Pep 634 (<300) pg/mL Serum Total Protein (6.3-8.2) g/dL Albumin (3.5-5.0) g/dL Thyroxine (T4) (5.53-10.96) ug/dL TSH 3rd Generation 2.520 (0.47-4.68) mIU/L Urine Color (Yellow) Urine Appearance (Clear) Urine pH (4.6-8.0) Ur Specific [place] (1.005-1.030) Urine Protein (Negative) Urine Glucose (UA) (Negative) mg/dL Urine Ketones (Negative) Urine Blood (Negative) Urine Nitrite (Negative) Urine Bilirubin (Negative) Urine Urobilinogen (0.2) mg/dL Ur Leukocyte Esterase (Negative) U Hyaline Cast (Auto) (0-2) /LPF Urine Microscopic RBC (0-5) /HPF Urine Microscopic WBC (0-5) /HPF Ur Epithelial Cells (None Seen) /HPF Urine Bacteria (None Seen) /HPF Urine Culture Reflexed (NO) Influenza Type A Ag (NEGATIVE) Influenza Type B Ag (NEGATIVE) RSV (PCR) (NEGATIVE) SARS-CoV-2 (PCR) (NEGATIVE) Slides for Path Review 12/05/22 12/05/22 Range/Units 15:50 15:50 WBC 10.4 (4.0-10.5) x10^3/uL RBC 4.08 L (4.1-5.4) x10^6/uL Hgb 8.9 L (12.0-16.0) g/dL Hct 32.1 L (35-47) % MCV 78.7 (78-100) fL MCH 21.8 L (26-32) pg MCHC 27.7 L (32-36) g/dL RDW 17.9 H (11.5-14.0) % Plt Count 144 L (150-450) x10^3/uL MPV 11.6 H (7.5-11.0) fL Gran % 88.8 H (36.0-66.0) % Immature Gran % (Auto) 0.4 (0.00-0.4) % Nucleat RBC Rel Count 0.0 (0.00-0.1) % Eos # (Auto) 0.08 (0-0.5) x10^3/uL Immature Gran # (Auto) 0.04 H (0.00-0.03) x10^3u/L Absolute Lymphs (auto) 0.43 L (1.0-4.6) x10^3/uL Absolute Monos (auto) 0.58 (0.0-1.3) x10^3/uL Absolute Nucleated RBC 0.00 (0.00-0.01) x10^3u/L Lymphocytes % 4.1 L (24.0-44.0) % Monocytes % 5.6 (0.0-12.0) % Eosinophils % 0.8 (0.00-5.0) % Basophils % 0.3 (0.0-0.4) % Absolute Granulocytes 9.21 H (1.4-6.9) x10^3/uL Basophils # 0.03 (0-0.4) x10^3/uL Sodium 139 (137-145) mmol/L Potassium 4.5 (3.5-5.1) mmol/L Chloride 105 (98-107) mmol/L Carbon Dioxide 20 L (22-30) mmol/L Anion Gap 18.4 H (5-15) MEQ/L BUN 18 H (7-17) mg/dL Creatinine 0.72 (0.52-1.04) mg/dL Estimated GFR > 60.0 ML/MIN Glucose 153 H (74-106) mg/dL Lactic Acid (0.4-2.0) Calcium 9.0 (8.4-10.2) mg/dL Total Bilirubin 1.10 (0.2-1.3) mg/dL AST 48 H (14-36) U/L ALT 26 (0-35) U/L Alkaline Phosphatase 197 H (38-126) U/L Troponin I (0.000-0.034) ng/mL NT-Pro-B Natriuret Pep (<300) pg/mL Serum Total Protein 8.0 (6.3-8.2) g/dL Albumin 4.6 (3.5-5.0) g/dL Thyroxine (T4) (5.53-10.96) ug/dL TSH 3rd Generation (0.47-4.68) mIU/L Urine Color (Yellow) Urine Appearance (Clear) Urine pH (4.6-8.0) Ur Specific [place] (1.005-1.030) Urine Protein (Negative) Urine Glucose (UA) (Negative) mg/dL Urine Ketones (Negative) Urine Blood (Negative) Urine Nitrite (Negative) Urine Bilirubin (Negative) Urine Urobilinogen (0.2) mg/dL Ur Leukocyte Esterase (Negative) U Hyaline Cast (Auto) (0-2) /LPF Urine Microscopic RBC (0-5) /HPF Urine Microscopic WBC (0-5) /HPF Ur Epithelial Cells (None Seen) /HPF Urine Bacteria (None Seen) /HPF Urine Culture Reflexed (NO) Influenza Type A Ag (NEGATIVE) Influenza Type B Ag (NEGATIVE) RSV (PCR) (NEGATIVE) SARS-CoV-2 (PCR) (NEGATIVE) Slides for Path Review YES - Progress Progress: improved, re-examined Air Movement: good Progress Note: 12/05/22 16:22 Chest x-ray was interpreted by the radiologist. I reviewed the impression. There is new cardiomegaly obscuring left base. There is chronic right hemidiaphragm elevation with adjacent atelectasis. 12/05/22 17:44 Reexamination of the patient states that she is feeling better. Her chest discomfort/ache is now a 1 out of 10 and it is more localized in the lower substernal and epigastric area and not in her back. 12/05/22 17:48 This patient's medical issue is 1 of high complexity. Level complexity in the work-up performed is based on the review of the patient's past medical history and review of the patient's medication list, review of the patient's drug allergy list, history present illness and physical findings on examination. This patient's work-up includes a CBC, CMP, troponin level, BNP, T4 level, TSH level as well as a twelve-lead EKG. We also ordered a chest x-ray. I reviewed the results of these studies. The patient has a troponin of 0.508 she has no acute ischemic changes on her twelve-lead EKG. The troponin of 0.508 is elevated and higher than she typically has run in the past when I reviewed comparison lab results from May 2022. She also has an elevated lactic acid level. Her GFR is normal. She has an elevated T4 with a normal TSH. I think this patient would be best served where there is a manager power. Patient's manager power is Dr. Crockett. Her manager power and professor of family medicine work out of [facility]. She prefers to be transferred to [facility] if possible. 12/05/22 18:46 I spoke with the hospitalist at [facility], Dr. Daniels. I reviewed the above history with him and I reviewed our work-up as well as our results of the work- up. He accepts the patient in transfer when a bed becomes available. They are going to contact us when they get an update and a timeframe for a bed. 12/05/22 20:56 The patient's 4-hour troponin increased from 0.5-14.3. There is been no change in the patient's chest pain. It is still present but 1 out of 10. The twelve- lead EKG performed at 2049 shows a normal sinus rhythm at 78 bpm prolonged RI interval. There is no acute ischemic changes on the repeat twelve-lead EKG. 12/05/22 21:09 We called [facility] because of the change in the patient's troponin level. They updated us and told us that a bed would not be of available for non-STEMI until sometime tomorrow afternoon. I do not think this is reasonable so I am going to contact [facility]. Although her manager power does not practice there, there is likely a manager power that can intervene in this patient's care if needed emergently. If [facility] does not accept then we will contact [facility] in [facility] 12/05/22 21:47 I spoke with the emergency room physician on at [facility] in [facility]. I reviewed the patient history, physical findings, work-up we performed and results of the work-up. Patient is excepted by Dr. Bishop. We will make arrangements for transfer Blood Culture(s) Obtained: Yes Antibiotics given: Yes Counseled pt/family regarding: lab results, diagnosis, rad results Medical Desision Making - Discussion of managment Care discussed with:: hospitalist (At [facility]) Reviewed:: Test results, Need for additional workup Will see patient: in hospital - Diagnostic Testing Diagnostic test were ordered, analyzed, and reviewed by me: Yes Radiological Interpretation: Reviewed by me, Teleradiologist Report - Risk of complications The pt has a high risk of morbidity or mortality based on: Decision regarding hospitilization or escalation of hosp level of care - Departure Departure Disposition: Transfer Clinical Impression: Elevated troponin, Fever of unknown origin, Non-STEMI (non-ST elevated myocardial infarction), Chronic anemia, Chest pain Condition: Stable Critical Care Time: Yes Critical Care Time(excluding separately billable procedures): Critical 30-74 mins (40) Referrals: CARLEE PAYNE DO [Primary Care Provider] - Follow up/PCP as directed
[2022-12-05] MEDS ORDERED: TYLENOL 325 MG PO STA (15:47)
[2022-12-05] MEDS ORDERED: Zofran 2 MG/ML MULTI DOSE VIAL 20 ML IV ONE (15:55)
[2022-12-05] MEDS ORDERED: Sodium Chloride 0.9% 1000 ML 1,000 ML ONE (15:57)
[2022-12-05] MEDS ORDERED: Zofran 4 MG/2 ML VIAL ONE (15:57)
[2022-12-05] MEDS ORDERED: TYLENOL EXTRA STRENGTH 500 MG ONE (15:57)
[2022-12-05] MEDS ORDERED: Zofran 4 MG/2 ML VIAL IV ONE (15:59)
[2022-12-05] MEDS ORDERED: Sodium Chloride 0.9% 1000 ML 1,000 ML IV SCH (16:00)
[2022-12-05] MEDS ORDERED: TYLENOL 325 MG ONE (16:00)
--- NOTE | 2022-12-05 16:04 | XRAY ---
Indication: Chest pain and short of breath. Comparison: May 08, 2022 Portable chest demonstrates new cardiomegaly obscuring left lung base. Remaining chest unremarkable with chronic right hemidiaphragm elevation with adjacent atelectasis, CABG surgery, osteopenia, and mild bony degenerative changes.
[2022-12-05 16:23] LABS: Absolute Neutrophil Ct (ANC) 9.21 x10^3/uL (1.4-6.9); BASOPHIL % 0.3 % (0.0-0.4); Basophil (Absolute #) 0.03 x10^3/uL (0-0.4); Eosinophil % 0.8 % (0.00-5.0); Eosinophil (Absolute #) 0.08 x10^3/uL (0-0.5); Hematocrit 32.1 % (35-47); Hemoglobin 8.9 g/dL (12.0-16.0); IMMATURE GRAN # 0.04 x10^3u/L (0.00-0.03); IMMATURE GRAN % 0.4 % (0.00-0.4); Lymphocyte (Absolute #) 0.43 x10^3/uL (1.0-4.6); Lymphocytes % 4.1 % (24.0-44.0); Mean Cell Volume 78.7 fL (78-100); Mean Corpuscular Hemoglobin 21.8 pg (26-32); Mean Corpuscular Hgb Concent. 27.7 g/dL (32-36); Mean Platelet Volume 11.6 fL (7.5-11.0); Monocyte (Absolute #) 0.58 x10^3/uL (0.0-1.3); Monocytes % 5.6 % (0.0-12.0); Neutrophil % 88.8 % (36.0-66.0); Platelet Count 144 x10^3/uL (150-450); Red Blood Count 4.08 x10^6/uL (4.1-5.4); Red Cell Distribution Width 17.9 % (11.5-14.0); White Blood Count 10.4 x10^3/uL (4.0-10.5)
[2022-12-05 16:35] LABS: ALBUMIN 4.6 g/dL (3.5-5.0); ALKALINE PHOSPHATASE 197 U/L (38-126); ANION GAP 18.4 MEQ/L (5-15); BLOOD UREA NITROGEN 18 mg/dL (7-17); CHLORIDE 105 mmol/L (98-107); Carbon Dioxide 20 mmol/L (22-30); Creatinine 1 0.72 mg/dL (0.52-1.04); EST GLOMERULAR FILTRATION RATE > 60.0 ML/MIN; Glucose 153 mg/dL (74-106); Potassium 4.5 mmol/L (3.5-5.1); SGOT/AST 48 U/L (14-36); SGPT/ALT 26 U/L (0-35); SODIUM 139 mmol/L (137-145)
[2022-12-05 17:01] LABS: INFLUENZA A NEGATIVE (NEGATIVE); INFLUENZA B NEGATIVE (NEGATIVE); RESPIRATORY SYNCTIAL VIRUS NEGATIVE (NEGATIVE); SARS-CoV-2 Xpert Express NEGATIVE (NEGATIVE)
[2022-12-05 17:08] LABS: Appearance Clear (Clear); Bacteria None Seen /HPF (None Seen); Bilirubin Negative (Negative); Blood Negative (Negative); Epithelial Cells None Seen /HPF (None Seen); Glucose, Urine Negative (Negative); Hyaline Casts NONE SEEN /LPF (0-2); Ketones Negative (Negative); Leukocyte Esterase Negative (Negative); Nitrite Negative (Negative); Ph 5.5 (4.6-8.0); Protein,Urine Dip Trace (Negative); RBC 0-2 /HPF (0-5); Specific Gravity 1.015 (1.005-1.030); Urobilinogen 0.2 mg/dL (0.2); WBC 0-2 /HPF (0-5)
[2022-12-05 17:10] LABS: ADD URINE CULTURE? NO (NO)
[2022-12-05] MEDS ORDERED: Levofloxacin 500MG/100ML D5W 500 MG/100 ML BAG IV STA (17:45)
[2022-12-05] MEDS ORDERED: Levofloxacin 500MG/100ML D5W 500 MG/100 ML BAG IV ONE (17:47)
[2022-12-05] MEDS ORDERED: ENOXAPARIN SODIUM SQ ONE ×2 (18:35→19:22)
[2022-12-05 20:30] LABS: Slide Review 1 YES
[2022-12-05 21:55] VITALS: BP 117/48; PULSE 78; O2SAT 97
== END 2022-12-05 22:43 | disposition short-term general hospital (02) ==
LOC: ED 15:33
DX: I21.4 Non-ST elevation (NSTEMI) myocardial infarction (principal); R77.8 Other specified abnormalities of plasma proteins; R50.9 Fever, unspecified; D64.9 Anemia, unspecified; R07.9 Chest pain, unspecified; R10.13 Epigastric pain; R11.0 Nausea; I11.0 Hypertensive heart disease with heart failure; E78.5 Hyperlipidemia, unspecified; I50.9 Heart failure, unspecified; Z79.899 Other long term (current) drug therapy; Z86.16 Personal history of COVID-19
CPT/HCPCS: 0241U; 36000; 36415; 51702; 71045; 80053; 81001; 83605; 83880; 84436; 84443; 84484; 85025; 87040; 87086; 93005; 93041; 94760; 96365; 96372; 96374; 99285; 99291; J1650; J1956; J2405; A9270-GY

== ENCOUNTER 2024-05-05 10:23 | Observation (INO) | payer MEDICARE ==
--- NOTE | 2024-04-20 09:35 | HP ---
HISTORY OF PRESENT ILLNESS: Patient is an 88-year-old female who presents with a right breast cancer. She does have a palpable breast mass on the right breast that is central and inferior to the nipple. Dr. Campbell has seen the patient and discussed patient had preferred to have a wide excision and a sentinel lymph node. PAST MEDICAL HISTORY: Hyperlipidemia, hypertension, coronary artery disease, osteoarthritis, thrombocytopenia, anemia. HOME MEDICATIONS: Synthroid, spironolactone, Protonix, pravastatin, iron, B12, carvedilol, aspirin, dapagliflozin. ALLERGIES: Amlodipine, cefaclor, fenofibrate, [place], meperidine, penicillin, simvastatin, sulfadiazine, Bactrim, tetracycline, iron. PAST SURGICAL HISTORY: Coronary artery bypass graft, hysterectomy, knee replacement, cholecystectomy, cardiac cath. SOCIAL HISTORY: Negative. FAMILY HISTORY: None reported. REVIEW OF SYSTEMS: CONSTITUTIONAL: Denies fever or chills. CHEST: Denies shortness of breath. CARDIOVASCULAR: Denies chest pain. ABDOMEN: Denies abdominal pain. PHYSICAL EXAMINATION: GENERAL: No acute distress. CHEST: Nonlabored. No shortness of breath. CARDIOVASCULAR: Regular rate and rhythm. ABDOMEN: Soft. ASSESSMENT: Right breast mass, right breast cancer. This report was dictated for Dr. Campbell by Ama Corona NP.
[~2024-05-05 10:23] MED LIST changes: -DIPRIVAN 200 MG/20 ML IV ONE; +Sensorcaine 0.25% 10 ML ONE; -Xylocaine-Mpf 2% 5 Ml Vial ONE
[2024-05-05] MEDS ORDERED: PROVAYBLUE IV ONE (10:24)
[2024-05-05] MEDS ORDERED: Lactated Ringers 1,000 ML IV ONE (11:00)
[2024-05-05] MEDS: Lactated Ringers 1,000 ML IV SCH (11:04)
[2024-05-05] MEDS: CLINDAMYCIN-D5W 600 MG/50 ML*** 600 MG/50 ML BAG IV SCH (11:25)
[2024-05-05] MEDS ORDERED: OFIRMEV 100 ML IV ONE (11:39)
[2024-05-05 11:44] LABS: BASOPHIL % 0.2 % (0.1-1.2); Basophil (Absolute #) 0.01 x10^3/uL (0.01-0.08); Hematocrit 45.4 % (34.1-44.9); Hemoglobin 14.9 g/dL (11.2-15.7); IMMATURE GRAN # 0.03 x10^3u/L (0.001-0.031); IMMATURE GRAN % 0.6 % (0.001-0.429); Lymphocytes % 22.1 % (19.3-51.7); Mean Cell Volume 93.4 fL (79.4-94.8); Mean Corpuscular Hemoglobin 30.7 pg (25.6-32.2); Mean Corpuscular Hgb Concent. 32.8 g/dL (32.2-35.5); Mean Platelet Volume 11.1 fL (9.4-12.3); Monocyte (Absolute #) 0.54 x10^3/uL (0.24-0.86); Monocytes % 10.8 % (4.7-12.5); Neutrophil % 64.3 % (34.0-71.1); Platelet Count 94 x10^3/uL (182-369); Red Blood Count 4.86 x10^6/uL (3.93-5.22); Red Cell Distribution Width 13.6 % (11.7-14.4)
[2024-05-05] MEDS ORDERED: Decadron 4 MG INJ ONE (11:49)
[2024-05-05] MEDS ORDERED: DEXMEDETOMIDINE 80 MCG/20ML-NS IV ONE (11:49)
[2024-05-05] MEDS ORDERED: Zofran 4 MG/2 ML VIAL ONE ×2 (11:49→15:38)
[2024-05-05] MEDS ORDERED: Quelicin Fliptop 200 MG/10 ML ONE (11:49)
[2024-05-05] MEDS ORDERED: PHENYLEPHRINE HCL ONE (11:49)
[2024-05-05] MEDS ORDERED: Xylocaine-Mpf 2% 5 Ml Vial ONE (11:49)
[2024-05-05] MEDS ORDERED: DIPRIVAN 200 MG/20 ML IV ONE (11:50)
[2024-05-05] MEDS ORDERED: Amidate 20 MG/10 ML IV ONE (11:50)
[2024-05-05 11:54] LABS: ANION GAP 12.8 MEQ/L (5-15); Calcium 9.8 mg/dL (8.4-10.2); Creatinine 1 0.82 mg/dL (0.52-1.04); EST GLOMERULAR FILTRATION RATE 69.6 ML/MIN
[2024-05-05 12:29] LABS: ABO TYPING AB; Antibody Screen NEGATIVE (NEGATIVE); RH TYPING POSITIVE
[2024-05-05] MEDS ORDERED: SUBLIMAZE 100 MCG/2 ML ONE ×3 (13:48→15:39)
[2024-05-05] MEDS ORDERED: Versed 2 MG/2 ML Injection ONE (13:48)
[2024-05-05] MEDS ORDERED: Ephedrine Sulfate 50 MG/ML ONE (14:05)
[2024-05-05] MEDS ORDERED: PHENYLEPHRINE HCL 10 MG in Dextrose 5%/Water IV Soln. 250 ML 250 ML IV SCH (14:15)
[2024-05-05] MEDS ORDERED: BREVIBLOC 100 MG/10 ML IV ONE (14:35)
[2024-05-05] MEDS ORDERED: FEVERALL 650 MG PR PRN (15:11)
[2024-05-05] MEDS ORDERED: Zofran 4 MG/2 ML VIAL IV PRN (15:11)
[2024-05-05] MEDS ORDERED: MORPHINE SULFATE 2 MG INJ IV PRN (15:15)
[2024-05-05] MEDS ORDERED: MORPHINE SULFATE 4 MG INJ IV PRN (15:16)
[2024-05-05] MEDS ORDERED: Lasix 40 MG/4 ML ONE (15:29)
[2024-05-05] MEDS ORDERED: Aldactone 25 MG PO SCH (17:30)
[2024-05-05] MEDS ORDERED: Nitrostat 0.4 MG Tablet SL PRN (17:30)
[2024-05-05] MEDS ORDERED: NON-FORMULARY ITEM (Ferrous Gluconate [Ferrous Gluconate] 324 MG Tablet) PO SCH (17:30)
[2024-05-05] MEDS ORDERED: MEDICATION INTERVENTION MC SCH ×5 (17:45→18:00)
[2024-05-05] MEDS: CLARITIN 10 MG PO SCH (18:36)
[2024-05-05] MEDS: Imdur 60MG PO SCH (18:36)
[2024-05-05] MEDS: Vitamin B-12 500 MCG PO SCH (18:36)
[2024-05-05] MEDS: VITAMIN D PO SCH (18:37)
[2024-05-05] MEDS: Sodium Chloride 0.9% 1000 ML 1,000 ML IV SCH (19:02)
[2024-05-05] MEDS ORDERED: BRINZOLAMIDE OP SCH (22:00)
[2024-05-05] MEDS ORDERED: NON-FORMULARY ITEM (Pravastatin Sodium [Pravastatin Sodium] 10 MG Tablet) PO SCH (22:00)
[2024-05-05] MEDS ORDERED: BRIMONIDINE TART OP SCH (22:00)
[2024-05-05] MEDS ORDERED: [UNRECOGNIZED DRUG - OTHER] OP SCH (22:00)
[2024-05-05] MEDS: COREG 12.5 MG PO SCH (22:38)
[2024-05-05] MEDS: NORCO 10-325 MG PO PRN (22:42)
[2024-05-05] MEDS: Xalatan OP SCH (22:43)
[2024-05-06 04:46] LABS: Hematocrit 42.1 % (34.1-44.9); Hemoglobin 14.2 g/dL (11.2-15.7); Mean Cell Volume 92.7 fL (79.4-94.8); Mean Corpuscular Hemoglobin 31.3 pg (25.6-32.2); Mean Corpuscular Hgb Concent. 33.7 g/dL (32.2-35.5); Platelet Count 89 x10^3/uL (182-369); Red Blood Count 4.54 x10^6/uL (3.93-5.22); Red Cell Distribution Width 13.4 % (11.7-14.4); White Blood Count 7.9 x10^3/uL (3.98-10.04)
[2024-05-06 05:05] LABS: Calcium 8.9 mg/dL (8.4-10.2); Creatinine 1 0.82 mg/dL (0.52-1.04); EST GLOMERULAR FILTRATION RATE 69.6 ML/MIN; Potassium 4.1 mmol/L (3.5-5.1)
[2024-05-06 05:39] LABS: Slide Review YES
[2024-05-06] MEDS ORDERED: NON-FORMULARY ITEM (Levothyroxine Sodium [Levothyroxine Sodium] 50 MCG Capsule) PO SCH (06:00)
[2024-05-06] MEDS: SYNTHROID 50 MCG PO SCH (06:03)
[2024-05-06] MEDS: Aldactone 25 MG PO SCH (09:26)
[2024-05-06] MEDS: Protonix 40MG Tablet PO SCH (09:26)
[2024-05-06] MEDS: ENOXAPARIN SODIUM SQ SCH (09:28)
[2024-05-06] MEDS: PATIENT OWN MEDICATION OP SCH ×2 (09:54→20:56)
[2024-05-06] MEDS ORDERED: NON-FORMULARY ITEM (Dapagliflozin Propanediol [Farxiga] 5 MG Tablet) PO SCH (10:00)
[2024-05-06] MEDS ORDERED: [UNRECOGNIZED DRUG - OTHER] PO SCH (10:00)
[2024-05-06] MEDS: NORCO 5/325 MG PO PRN (10:50)
[2024-05-07 03:48] VITALS: O2SAT 93
[2024-05-07 05:53] LABS: Hemoglobin 12.1 g/dL (11.2-15.7); Mean Cell Volume 95.2 fL (79.4-94.8); Mean Corpuscular Hemoglobin 30.3 pg (25.6-32.2); Mean Corpuscular Hgb Concent. 31.8 g/dL (32.2-35.5); Mean Platelet Volume 11.7 fL (9.4-12.3); Platelet Count 84 x10^3/uL (182-369); Red Blood Count 3.99 x10^6/uL (3.93-5.22); Red Cell Distribution Width 13.7 % (11.7-14.4)
[2024-05-07 06:57] VITALS: BP 109/67; PULSE 75; RESP 17; TEMP 97.5
[2024-05-07 08:25] LABS: Slide Review YES
[2024-05-08] MEDS ORDERED: Vitamin B-12 500 MCG PO SCH (10:00)
--- NOTE | 2024-05-10 14:25 | OP ---
SURGERY DATE/TIME: 05/05/2024 [id number] PREOPERATIVE DIAGNOSIS: Right breast cancer. POSTOPERATIVE DIAGNOSIS: Right breast cancer, invasive. PROCEDURE: 1) Right total mastectomy. 2) Right sentinel lymph node dissection. SURGEON: Alec Campbell MD QUALITY CONTROL MICROBIOLOGIST: Ama Olvera, Nurse Practitioner, for the entire case. ANESTHESIA: General. COMPLICATIONS: None. CONDITION: Stable. DESCRIPTION OF PROCEDURE AND FINDINGS: Patient was taken to surgery, general anesthetic. Methylene blue was injected around the areola and massaged. Mastectomy flaps were marked. They were transected. The flaps were developed traditionally. Then, the breast and pectoralis major fascia was rolled off the pectoralis major muscle over towards the axilla, ligaclipped. Latissimus was identified. The serratus was identified. The axillary contents noted 2 visible palpable methylene blue nodes. Stage 1-2 node dissection was taken. There were no residual methylene blue nodes. There was no residual visible or palpable lymphadenopathy. A 10 MARYANN was placed. Skin was closed with inverted 3-0 Vicryl followed by jitendra. Sterile dressing applied. Patient tolerated the procedure satisfactorily.
== END 2024-05-07 10:30 | disposition home or self-care (01) ==
LOC: SDC 10:23 → MED SURG 16:50
PROVIDERS: ADMIT Surgery; ATTEND Surgery
DX: C50.911 Malignant neoplasm of unspecified site of right female breast (principal)
CPT/HCPCS: 19307; 36415; 80048; 85025; 85027; 86850; 86900; 86901; 93005; G0378; J0330; J1100; J1650; J1940; J2250; J2371; J2405; J2704; J3010; A9270-GY; Q9968

== ENCOUNTER 2024-08-12 12:06 | Emergency (ER) | payer MEDICARE ==
[2024-08-12 12:43] VITALS: TEMP 98.6
--- NOTE | 2024-08-12 13:15 | ERPHSYRPT ---
- History of Present Illness Time Seen by Provider: 08/12/24 13:01 Source: patient Exam Limitations: no limitations Patient Subjective Stated Complaint: Pt is getting chemotherapy for breast cancer with the last being 8 days ago and pt is having a lot of diarrhea and feels weak and tired, pt's abdomen is severely distended Triage Nursing Assessment: Pt brought to the ER by her son, hypotensive, rates rectum pressure as 3-4/10, pulses normal, skin n/w/d, denies vomiting, had some rectal bleeding with stools but reports having internal hemrhoids and believes that to be the problem, Dr. Resendez is oncologist, had right sided mastectomy in May 2024, weak and tired, abdomen distended Physician History: Pt states for the past 4 days she has been generally weak and for the past 5 days has had diarrhea with drops of bright red blood this morning. Pt states she has had her 3rd chemotherapy Tx 8 days ago for her right breast cancer which was diagnosed in April 2024. Pt also admits to internal hemorrhoids. Pt denies chest pain, fever, vomiting; admits to shortness of air today. Pt states her blood pressure is at least 20 less when the cuff is placed on her left arm for years. Allergies/Adverse Reactions: Penicillins Allergy (Intermediate, Verified 08/12/24 12:44) Rash sulfadiazine Allergy (Intermediate, Verified 08/12/24 12:44) Itching iron [From Venofer] Allergy (Verified 08/12/24 12:44) simvastatin Allergy (Verified 08/12/24 12:44) Tetracyclines Allergy (Verified 08/12/24 12:44) amlodipine [From Norvasc] Adverse Reaction (Intermediate, Verified 08/12/24 1 2:44) hydrocodone Adverse Reaction (Intermediate, Verified 08/12/24 12:44) Itching meperidine [From Demerol] Adverse Reaction (Intermediate, Verified 08/12/24 12:44) Nausea and Vomiting sulfamethoxazole [From Bactrim] Adverse Reaction (Intermediate, Verified 08/12/24 12:44) Itching tetracycline Adverse Reaction (Intermediate, Verified 08/12/24 12:44) Rash trimethoprim [From Bactrim] Adverse Reaction (Intermediate, Verified 08/12/24 12:44) Itching cefaclor Adverse Reaction (Verified 08/12/24 12:44) fenofibrate [From Tricor] Adverse Reaction (Verified 08/12/24 12:44) Home Medications: Nitroglycerin 0.4 mg Tablet [Nitrostat 0.4 MG Tablet] 0.4 mg SL UD PRN 07/23/18 [History] PANTOPRAZOLE 40 mg Tablet [Protonix 40MG Tablet] 40 mg PO BID 07/23/18 [History] Carvedilol 3.125 mg [Coreg 3.125 MG] 12.5 mg PO BID 11/28/20 [History] Levothyroxine Sodium 50 mcg PO 0600 11/28/20 [History] Cyanocobalamin 500 Mcg [Vitamin B-12 500 MCG] 1,000 mcg PO DAILY 05/08/22 [History] Loratadine 10 mg [Claritin 10 mg] 1 tab PO DAILY 05/08/22 [History] Pravastatin Sodium 40 mg PO HS 05/08/22 [History] Ferrous Gluconate 324 mg PO DAILY 04/14/24 [History] Spironolactone 25 mg PO DAILY 04/14/24 [History] Dapagliflozin Propanediol [Farxiga] 5 mg PO DAILY 05/05/24 [History] Aspirin 81 mg PO UD 08/12/24 [History] DOCEtaxeL [Docetaxel] 60 mg IV UD 08/12/24 [History] Isosorbide Mononitrate 30 mg [Imdur 30 MG] 30 mg PO DAILY 08/12/24 [Histo ry] cycloPHOSphamide [Cyclophosphamide] 600 mg IV UD 08/12/24 [History] Hx Tetanus, Diphtheria Vaccination/Date Given: No Hx Influenza Vaccination/Date Given: No Hx Pneumococcal Vaccination/Date Given: Yes Travel Risk - International Travel Have you traveled outside of the country in past 3 weeks: No - Emerging Infectious Disease Are you exhibiting symptoms associated with any current EIDs: Yes Symptoms: Diarrhea - Review of Systems Constitutional: No Fever Respiratory: No Dyspnea Cardiac: No Chest Pain Abdominal/Gastrointestinal: No Vomiting Neurological: Other (generalized weakness) - Past Medical History Pertinent Past Medical History: Yes Neurological History: No Pertinent History ENT History: Glaucoma, Macular Degeneration Cardiac History: Arrhythmia, Congestive Heart Failure, Coronary Artery Disease, Deep Vein Thrombosis, High Cholesterol, Hypertension, Myocardial Infarction ([place]), Peripheral Vascular Disease Respiratory History: Bronchitis, Other Endocrine Medical History: Hypothyroidism Musculoskeletal History: Arthritis GI Medical History: Diverticulitis, GERD, Gallbladder Disease, Hernia, Pancreatitis, Other History: Other Psycho-Social History: No Pertinent History Female Reproductive Disorders: Breast Cancer, Menstrual Problems, Other Other Medical History: basil cell, anemia, COVID in March 2022, Anemia, Breast cancer - Past Surgical History Past Surgical History: Yes Neuro Surgical History: No Pertinent History Cardiac: CABG, Cardiac Catheterization, Cardiac Stent Respiratory: No Pertinent History Gastrointestinal: Cholecystectomy, Hernia Repair Genitourinary: No Pertinent History Musculoskeletal: Joint Replacement Female Surgical History: Hysterectomy Other Surgical History: bilat knees, left CAROTID EA. 2 stents in right leg and one in left leg. - Social History Smoking Status: Never smoker Exposure to second hand smoke: No Drug Use: none - Social Determinants of Health Will the patient participate in the screening: Yes Do you worry about a steady place to live?: No Do you have any problems with any of the following?: No known problems In the past 12 months,have you had to go without utilities?: No Transportation Issues: No Has anyone in your support network made you feel unsafe?: No Have you or anyone in your house had to go w/o enough food: No - Nursing Vital Signs Nursing Vital Signs: Initial Vital Signs Temperature 98.6 F 08/12/24 12:31 Pulse Rate 77 08/12/24 12:31 Blood Pressure 79/46 08/12/24 12:31 O2 Sat by Pulse Oximetry 95 08/12/24 12:31 Pain Scale Pain Intensity 4 - Physical Exam General Appearance: alert Eye Exam: eyes nml inspection Ears, Nose, Throat Exam: pharynx normal Neck Exam: normal inspection Respiratory Exam: lungs clear Cardiovascular Exam: normal heart sounds Gastrointestinal/Abdomen Exam: normal bowel sounds, distention, No tenderness Neurologic Exam: alert, cooperative Skin Exam: warm, dry SpO2 Interpretation: normal SpO2: 95 O2 Delivery: Room Air - Course Nursing assessment & vital signs reviewed: Yes EKG Interpreted by Me: RATE (78), Sinus Rhythm, Left Snyder Deviation, Right Bundle Branch Block, Other (QTc = 517) - Radiology Exams Chest X-ray Interpretation: Discussed w/ radiologist (Nonacute chest with chronic features.) - CT Exams Abdomen/Pelvis CT Interpretation: Discussed w/radiologist (New cardiomegaly, cirrhotic liver and moderate abdominal/pelvic ascites. See rest of report.) Ordered Tests: Active Orders 24 hr Category Date Time Status EKG-ER Only STAT Care 08/12/24 13:11 Active IV Insertion STAT Care 08/12/24 13:11 Active ABDOMEN AND PELVIS W/0 CONTRAS [CT] Stat Exams 08/12/24 13:13 Completed CHEST 1 VIEW (PORTABLE) Stat Exams 08/12/24 13:12 Completed AMYLASE Stat Lab 08/12/24 13:30 Completed CBC W DIFF Stat Lab 08/12/24 13:30 Completed CMP Stat Lab 08/12/24 13:30 Completed CULTURE,URINE Stat Lab 08/12/24 14:30 Received LIPASE Stat Lab 08/12/24 13:30 Completed MAGNESIUM Stat Lab 08/12/24 13:30 Completed Manual Differential NC Stat Lab 08/12/24 13:30 Completed TROPONIN Q4H Lab 08/12/24 13:30 Completed TROPONIN Q4H Lab 08/12/24 17:15 Ordered TROPONIN Q4H Lab 08/12/24 21:15 Ordered UA W/RFX UR CULTURE Stat Lab 08/12/24 14:30 Completed Medication Summary Generic Name Dose Route Start Last Admin Trade Name Freq PRN Reason Stop Dose Admin Levofloxacin/Dextrose 500 mg in 100 mls @ 100 mls/hr 08/12/24 16:03 Levofloxacin 500mg/100ml D5w IV 08/12/24 17:02 STAT STA Discontinued Medications Generic Name Dose Route Start Last Admin Trade Name Freq PRN Reason Stop Dose Admin Sodium Chloride 1,000 mls @ 999 mls/hr 08/12/24 13:11 08/12/24 15:09 Sodium Chloride 0.9% 1000 Ml IV 08/12/24 14:11 Infused .Q1H1M STA Infusion Sodium Chloride Confirm 08/12/24 13:37 Sodium Chloride 0.9% 1000 Ml Administered 08/12/24 13:38 Dose 1,000 mls @ ud .ROUTE .STK-MED ONE Lab/Rad Data: Laboratory Result Diagrams 08/12/24 13:30 08/12/24 13:30 Laboratory Results 08/12/24 08/12/24 08/12/24 Range/Units 14:30 13:30 13:30 WBC (3.98-10.04) x10^3/uL RBC (3.93-5.22) x10^6/uL Hgb (11.2-15.7) g/dL Hct (34.1-44.9) % MCV (79.4-94.8) fL MCH (25.6-32.2) pg MCHC (32.2-35.5) g/dL RDW (11.7-14.4) % Plt Count (182-369) x10^3/uL MPV (9.4-12.3) fL Segmented Neutrophils (34.0-71.1) % Band Neutrophils (0.0-2.0) % Lymphocytes (Manual) (19.3-51.7) % Monocytes (Manual) (4.7-12.5) % Platelet Estimate (NORMAL) RBC Morphology Polychromasia Poikilocytosis Anisocytosis Sodium 134 L (135-145) mmol/L Potassium 3.7 (3.5-5.1) mmol/L Chloride 100 (98-107) mmol/L Carbon Dioxide 26 (22-30) mmol/L Anion Gap 12.2 (5-15) MEQ/L BUN 14 (7-17) mg/dL Creatinine 0.70 (0.52-1.04) mg/dL Estimated GFR 83.7 ML/MIN Glucose 101 (74-106) mg/dL Calcium 8.7 (8.4-10.2) mg/dL Magnesium 1.9 (1.6-2.3) mg/dL Total Bilirubin 1.30 (0.2-1.3) mg/dL AST 34 (14-36) U/L ALT 24 (0-35) U/L Alkaline Phosphatase 250 H (38-126) U/L Troponin I 0.033 (0.000-0.033) ng/mL Serum Total Protein 4.6 L (6.3-8.2) g/dL Albumin 2.7 L (3.5-5.0) g/dL Amylase < 30 L (30-110) U/L Lipase 38 (23-300) U/L Urine Color Dark Yellow A (Yellow) Urine Appearance Turbid A (Clear) Urine pH 5.5 (4.6-8.0) Ur Specific [place] 1.010 (1.005-1.030) Urine Protein 30 (Negative) Urine Glucose (UA) 500 A (Negative) mg/dL Urine Ketones Trace A (Negative) Urine Blood Small A (Negative) Urine Nitrite Positive A (Negative) Urine Bilirubin Negative (Negative) Urine Urobilinogen 1.0 A (0.2) mg/dL Ur Leukocyte Esterase Large A (Negative) U Hyaline Cast (Auto) 6-10 A (0-2) /LPF Urine Microscopic RBC 0-2 (0-5) /HPF Urine Microscopic WBC >100 A (0-5) /HPF Ur Epithelial Cells Few (None Seen) /HPF Urine Bacteria Many A (None Seen) /HPF Urine Culture Reflexed YES (NO) 08/12/24 Range/Units 13:30 WBC 11.0 H (3.98-10.04) x10^3/uL RBC 3.56 L (3.93-5.22) x10^6/uL Hgb 10.9 L (11.2-15.7) g/dL Hct 33.1 L (34.1-44.9) % MCV 93.0 (79.4-94.8) fL MCH 30.6 (25.6-32.2) pg MCHC 32.9 (32.2-35.5) g/dL RDW 16.5 H (11.7-14.4) % Plt Count 68 L (182-369) x10^3/uL MPV 12.7 H (9.4-12.3) fL Segmented Neutrophils 86 H (34.0-71.1) % Band Neutrophils 6 H (0.0-2.0) % Lymphocytes (Manual) 3 L (19.3-51.7) % Monocytes (Manual) 5 (4.7-12.5) % Platelet Estimate NORMAL (NORMAL) RBC Morphology ABNORMAL Polychromasia 1+ Poikilocytosis 1+ Anisocytosis 1+ Sodium (135-145) mmol/L Potassium (3.5-5.1) mmol/L Chloride (98-107) mmol/L Carbon Dioxide (22-30) mmol/L Anion Gap (5-15) MEQ/L BUN (7-17) mg/dL Creatinine (0.52-1.04) mg/dL Estimated GFR ML/MIN Glucose (74-106) mg/dL Calcium (8.4-10.2) mg/dL Magnesium (1.6-2.3) mg/dL Total Bilirubin (0.2-1.3) mg/dL AST (14-36) U/L ALT (0-35) U/L Alkaline Phosphatase (38-126) U/L Troponin I (0.000-0.033) ng/mL Serum Total Protein (6.3-8.2) g/dL Albumin (3.5-5.0) g/dL Amylase (30-110) U/L Lipase (23-300) U/L Urine Color (Yellow) Urine Appearance (Clear) Urine pH (4.6-8.0) Ur Specific [place] (1.005-1.030) Urine Protein (Negative) Urine Glucose (UA) (Negative) mg/dL Urine Ketones (Negative) Urine Blood (Negative) Urine Nitrite (Negative) Urine Bilirubin (Negative) Urine Urobilinogen (0.2) mg/dL Ur Leukocyte Esterase (Negative) U Hyaline Cast (Auto) (0-2) /LPF Urine Microscopic RBC (0-5) /HPF Urine Microscopic WBC (0-5) /HPF Ur Epithelial Cells (None Seen) /HPF Urine Bacteria (None Seen) /HPF Urine Culture Reflexed (NO) - Progress Progress: unchanged Will see patient in: other (Spoke with & discussed case with Dr. Hermosillo([id number]) who accepted pt for transfer to [facility] as a direct admission.) Counseled pt/family regarding: lab results, diagnosis, rad results Medical Desision Making - Diagnostic Testing Diagnostic test were ordered, analyzed, and reviewed by me: Yes Radiological Interpretation: Discussed w/ radiologist - Departure Departure Disposition: Transfer ([facility]) Clinical Impression: Ascites, Cirrhosis, Abdominal distension, UTI (urinary tract infection), Generalized weakness, Breast cancer, Dyspnea Condition: Stable Critical Care Time: No Referrals: JUAN MIGUEL ALTAMIRANO DO [Primary Care Provider] - Follow up/PCP as directed
[2024-08-12] MEDS: Sodium Chloride 0.9% 1000 ML 1,000 ML IV STA (13:37)
[2024-08-12] MEDS ORDERED: Sodium Chloride 0.9% 1000 ML 1,000 ML ONE ×2 (13:37→21:46)
[2024-08-12 13:40] LABS: Hematocrit 33.1 % (34.1-44.9); Hemoglobin 10.9 g/dL (11.2-15.7); Mean Corpuscular Hemoglobin 30.6 pg (25.6-32.2); Mean Corpuscular Hgb Concent. 32.9 g/dL (32.2-35.5); Mean Platelet Volume 12.7 fL (9.4-12.3); Platelet Count 68 x10^3/uL (182-369); Red Blood Count 3.56 x10^6/uL (3.93-5.22); Red Cell Distribution Width 16.5 % (11.7-14.4)
[2024-08-12 14:02] LABS: ALBUMIN 2.7 g/dL (3.5-5.0); ALKALINE PHOSPHATASE 250 U/L (38-126); AMYLASE < 30 U/L (30-110); ANION GAP 12.2 MEQ/L (5-15); BLOOD UREA NITROGEN 14 mg/dL (7-17); CHLORIDE 100 mmol/L (98-107); Calcium 8.7 mg/dL (8.4-10.2); Carbon Dioxide 26 mmol/L (22-30); EST GLOMERULAR FILTRATION RATE 83.7 ML/MIN; Glucose 101 mg/dL (74-106); LIPASE 38 U/L (23-300); MAGNESIUM 1.9 mg/dL (1.6-2.3); Potassium 3.7 mmol/L (3.5-5.1); SGOT/AST 34 U/L (14-36); SGPT/ALT 24 U/L (0-35); SODIUM 134 mmol/L (135-145); Total Protein 4.6 g/dL (6.3-8.2)
[2024-08-12 14:49] LABS: Appearance Turbid (Clear); Bacteria Many /HPF (None Seen); Bilirubin Negative (Negative); Blood Small (Negative); Epithelial Cells Few /HPF (None Seen); Glucose, Urine 500 mg/dL (Negative); Ketones Trace (Negative); Leukocyte Esterase Large (Negative); Nitrite Positive (Negative); Ph 5.5 (4.6-8.0); Protein,Urine Dip 30 (Negative); RBC 0-2 /HPF (0-5); WBC >100 /HPF (0-5)
--- NOTE | 2024-08-12 14:51 | XRAY ---
Indication: Abdominal distention. History of breast cancer with current chemotherapy. Multiple contiguous axial images obtained through the abdomen and pelvis without contrast. Comparison: April 07, 2019 Lung bases demonstrate minimal bibasilar subsegmental atelectasis is/scarring. No infiltrate or effusion. Heart now enlarged. Stable small hiatal hernia. New cirrhotic appearing liver with moderate abdominal/pelvic ascites. Spleen remains enlarged measuring 13.4 cm. No free air. Noncontrasted stomach and bowel loops appear nonobstructed. Previous calcified mass interposed between cecum and right kidney appears smaller and more calcified. Again cholecystectomy and hysterectomy.. Remaining pancreas, adrenal glands, kidneys, ureters, and bladder are unremarkable for noncontrast exam. Again extensive scattered anterior scattered calcifications without AAA. Osseous structures intact with osteopenia, mild/moderate degenerative changes throughout spine, and mild degenerative changes both hips. Impression: 1. New cardiomegaly, cirrhotic liver, and moderate abdominal/pelvic ascites. 2. Chronic findings including benign right lower quadrant calcified mass, small hiatal hernia, splenomegaly, arteriosclerotic disease, and chronic bony findings.
--- NOTE | 2024-08-12 14:53 | XRAY ---
Indication: Weakness. Comparison: December 05, 2022 Portable chest demonstrates stable chronic right hemidiaphragm elevation. No focal infiltrate, consolidation, or large effusion. Heart remains enlarged again with CABG. New left Port-A-Cath. Bony thorax intact again with osteopenia and degenerative changes. Impression: Nonacute chest with chronic features.
[2024-08-12 15:52] LABS: ANISOCYTOSIS 1+; BAND 6 % (0.0-2.0); Lymphocytes 3 % (19.3-51.7); Monocyte 5 % (4.7-12.5); Neutrophils 86 % (34.0-71.1); Platelet Estimate NORMAL (NORMAL); Poikilocytosis 1+; Polychromasia 1+; Total Cells Counted 100
[2024-08-12] MEDS ORDERED: Levofloxacin 500MG/100ML D5W 500 MG/100 ML BAG IV ONE (16:06)
[2024-08-12] MEDS: Levofloxacin 500MG/100ML D5W 500 MG/100 ML BAG IV STA (16:09)
[2024-08-12 21:46] VITALS: BP 82/49; PULSE 76; RESP 19; O2SAT 93
== END 2024-08-12 22:00 | disposition short-term general hospital (02) ==
LOC: ED 12:06
DX: K74.60 Unspecified cirrhosis of liver (principal); R18.8 Other ascites; R14.0 Abdominal distension (gaseous); N39.0 Urinary tract infection, site not specified; R53.1 Weakness; C50.911 Malignant neoplasm of unspecified site of right female breast; R06.00 Dyspnea, unspecified; R19.7 Diarrhea, unspecified; I11.0 Hypertensive heart disease with heart failure; I50.9 Heart failure, unspecified; Z79.84 Long term (current) use of oral hypoglycemic drugs; Z79.899 Other long term (current) drug therapy
CPT/HCPCS: 36415; 71045; 74176; 80053; 81001; 82150; 83690; 83735; 84484; 85025; 87077; 87086; 87186; 93005; 96361; 96365; 99284; 99285; J1956